=== PATIENT | female | born 1940 | race Caucasian/White ===

== ENCOUNTER 2023-01-13 11:27 | Inpatient (IN) | payer OTHER ==
--- OUTSIDE RECORDS SUMMARY | 2023-01-13 11:35 | XMS REPORT | Continuity of Care Document ---
:1940 Author Organization [facility] t Address [address] [place] [address] Care Team Providers Name Role Phone Gabby Mazariegos Primary Care Physician Jenny Attending Clinician Unavailable Doctor Unassigned, Sarcoxie Attending Clinician Unavailable AUGUSTINE LANGLEY Attending Clinician Unavailable Augustine Langley MD Attending Clinician ÁLVARO ENCISO Attending Clinician Unavailable Álvaro Scruggs Attending Clinician Mary Jara MD Attending Clinician MARY JARA Attending Clinician Unavailable Aldo Beckett DO Attending Clinician Gabby Mazariegos Attending Clinician Mars Dent Attending Clinician Jenny Admitting Clinician Unavailable AUGUSTINE LANGLEY Admitting Clinician Unavailable Augustine Langley MD Admitting Clinician Mars Dent Admitting Clinician Payers Payer Name Policy Type Policy Number Effective Date Expiration Date German jhonny [place]ICARE [place]: [id number] 2004 [employer] 00:00:00 BUNNY CROCKETT [id number] [facility] MEDICARE A-[place]: [id number] 2004 [employer] - 00:00:00 [facility] Problems Condition Condition Condition Status Onset Resolution Last Treating Co mments Source Name Details Category Date Date Treatment Clinician Date Chronic Chronic Problem Active [place] diarrhea Di[facility] 4-25 [facility] Hypertensi Hypertensi Problem Active 0 [place] ve ve 5-27 da disorder Disorder 00:00: [facility] 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 Added automatic ally from request for surgery [id number] Left Left Disease Active 2016-06 Overview: Univer s ureteral ureteral 0-11 Formattin ity of stone stone 00:00: g of this [place] 00 note Medical might be Branch different from the original. Added automatic ally from request for surgery [id number] Hydronephr Hydronephr Disease Active U nivers osis osis 9-15 ity of 00:00: [place] 00 Medical Branch Bladder Bladder Disease Active Univers wall wall 9-08 ity of thickening thickening 00:[place] [facility] Renal Renal Disease Active Univers lesion lesion 9-08 ity of 00:00: [place] 00 Medical Branch Renal Renal Disease Active Univers stones stones 9-08 ity of 00:00: [place] 00 Medical Branch Pericardia Pericardia Disease Active U nivers l effusion l effusion 9-08 it y of 00:00: [place] 00 Medical Branch Uncontroll Uncontroll Disease Active U nivers ed ed 9-08 ity of hypertensi hypertensi 00:[place] [facility] [place] Liver Liver Disease Active Univers lesion, lesion, 9-08 ity of right lobe right lobe 00:00: [place] [facility] Atrial Atrial Problem Active 2017-05-01 Pradeep bentley fibrillati fibrillati 09-30 05:00:45 l on on 00:00: Romero (disorder) (disorder) 00 Active 09/30/2016 Problem 05/01/2017 pt sees a cardiologi vijay valdez 02-12-17, ECHO done at that time, cardio prescribed Xarelto daily [facility] Cerebrovas Cerebrova Problem Active 2015-062017-05-01 Memoria cular scular 07-27 05:00:45 l accident accident 00:00: Arturo n (disorder) (disorder) 00 Active 05/26/2016 Problem 05/01/2017 pt had weakness on right side of body, slurred speech, pt has no deficits at this time. [facility] Irritable Irritable Problem Active 2017-05-01 Memoria colon colon 06-02 05:00:45 l (disorder) (disorder) 00:00: He rmann Active 00 06/02/2009 Problem 05/01/2017 [facility] Hyperchole Problem Active 2017-05-01 M emoria sterolemia Hyperchole 05:00:45 l (disorder) sterolemia He rmann (disorder) Active Problem 05/01/2017 [facility] Knee pain Knee pain Problem Active 2017-05-01 Memoria (finding) (finding) 05:00:45 l Active [place] Problem 05/01/2017 right [facility] Sleep, Sleep, Problem Active 2017-05-01 Pradeep bentley function function 05:00:45 l (observabl (observabl He rmann e entity) e entity) Active Problem 05/01/2017 [facility] Kidney Kidney Problem Resolve 2017-05-01 2017-05-01 Memoria stone stone d 01-31 05:00:45 05:00:45 l (disorder) (disorder) 00:00: He rmann Resolved 00 01/31/2017 Problem 05/01/2017 2 stents placed and removed [facility] History of Past Illness Condition Condition Condition Status Onset Resolution Last Treating Co mments Source Name Details Category Date Date Treatment Clinician Date Unilateral Unilatera Problem 2016-062017-05-01 2017-05-01 Memoria primary l primary 06-23 05:00:45 05:00:45 l osteoarthr osteoarthr 06:00: He cassius itis, itis, 00 right knee right knee 04/23/2017 05/01/2017 [facility] Allergies, Adverse Reactions, Alerts Allergy Allergy Status Severity Reaction(s) Onset Inactive Treating Comm ents Source Name Type Date Date Clinician Adhesive Propensi Active Rash Univer s Tape-Lavonne ty to 4-09 ity of icones adverse 00:00: [place] reaction 00 Medical s Branch ADHESIVE DRUG Active Rash Univers TAPE-LAVONNE 09 ity of ICONES 00:00: [place] 00 Medical Branch Lisinopr Drug Active Anaphylaxis 2016-06 Uni vers il Allergy 0-16 ity of 00:00: [place] 00 Medical Branch Rifaximi Drug Active Swelling 2016-06 Univer s n Allergy 0-16 ity of 00:00: [place] 00 Medical Branch LISINOPR DRUG Active High Anaphylaxis 2016-06 Uni vers IL INGREDI 0-16 ity of 00:00: [place] 00 Medical Branch RIFAXIMI DRUG Active High Swelling 2016-06 Univer s N INGREDI 0-16 ity of 00:00: [place] 00 Medical Branch Morphine Drug Active Other - See Strange Un sarah Intolera comments 917 behavior ity of nce 00:00: [place] 00 Medical Branch MORPHINE DRUG Active Other-Cmnt Univ ers INGREDI 9-17 ity of 00:00: [place] 00 Medical Branch Penicill Propensi Active Rash Univer s in ty to 3-09 ity of adverse 00:00: [place] reaction 00 Medical s Branch PENICILL DRUG Active Rash Univers IN INGREDI 3-09 ity of 00:00: [place] 00 Medical Branch Penicill Propensi Active Rash Univer s in ty to 3-09 ity of adverse 00:00: [place] reaction 00 Medical s Branch ADHESIVE Allergy Active [place] TAPE to da substanc [facility] PENICILL Allergy Active [place] INS to da substanc [facility] Xifaxan Allergy Active [place] to da substanc [facility] lisinopr lisinopr Active Anaphylaxis M emoria il il (disorder) l Romero morphine morphine Active Hallucinatio Memoria ns (finding) l Romero penicill penicill Active Memori a in in l Romero Tape<sup Tape<sup Active Cutaneous Mem oria >1</sup> >1</sup> eruption l (morphologic Herm anshul abnormality) Xifaxan Xifaxan Active Swelling Memori a (morphologic l abnormality) Herm anshul Social History Social Habit Start Date Stop Date Quantity Comments Source History SDOH University o f Alcohol Frequency [facility] edical Branch History SDOH University o f Alcohol Std [place] Medical Drinks Branch History SDOH University o f Alcohol Binge [place] Medic al Branch Alcohol intake 2021-08-30 2021-08-30 Current drinker Unive rsity of 00:00:00 00:00:00 of alcohol [place] Medical (finding) Branch Exposure to 2021-07-28 2021-08-27 Not sure University of SARS-CoV-2 00:00:00 13:55:00 [facility] (event) Branch Alcohol Comment 2017-03-14 2017-03-14 Rare occasions Unive rsity of 00:00:00 00:00:00 [facility] Tobacco use and 2016-08-08 2016-08-08 Never used Universit y of exposure 00:00:00 00:00:00 [facility] Sex Assigned At [birth year] Universit y of 00:00:00 00:00:00 [facility] Smoking Status Start Date Stop Date Source Social History [facility] Medications Ordered Filled Start Stop Current Ordering Indication Dosage Frequency Signature Comments Components Source Medication Medication Date Date Medication? Clinician (SIG) Name Name neomycin-po Yes PRN, Nitish [place]wood lymyxin-dex -30 Starting ity of amethasone 17:30: on Fri [place] (MAXITROL) 00 08/29/21 at Med ical 3.5 1230, Branch mg/g-10,000 Until unit/g-0.1 Discontinu % ed, ophthalmic Routine, ointment Intra-op neomycin-po 2021- No PRN, Unive rs lymyxin-dex 30 08-29 Starting ity of amethasone 17:30: 20:08 on Fri [facility] (MAXITROL) 00 :05 08/29/21 at Med ical 3.5 1230, Branch mg/g-10,000 Until Fri unit/g-0.1 08/29/21 at % 1508, ophthalmic Routine, ointment Intra-op dexamethaso Yes PRN, Univer s ne 30 Starting ity of (DECADRON 17:29: on Wed [place] PHOSPHATE) 00 08/29/21 at [facility] ical injection 1229, Branch Until Discontinu ed, Routine, Intra-op ceFAZolin Yes PRN, Univers (ANCEF) 08-29 Starting ity of injection 17:29: on Wed [place] 00 08/29/21 at [facility] 1229, Branch Until Discontinu ed, AMBREEN, Intra-op carbachoL Yes PRN, Univers (MIOSTAT) 08-29 Starting ity of 0.01 % 17:29: on Wed [place] intraocular 00 08/29/21 at Wi dical injection 1229, Branch Until Discontinu ed, Routine, Intra-op DUOVISC Yes PRN, Univers (DUOVISC 08-29 Starting ity of VISCO 17:29: on Fri ELASTIC) 3 08/29/21 at [facility] ica %-4 %(0.5 1229, Branch mL) 1 % Until (0.55 mL) Discontinu intraocular ed, injection Routine, Intra-op dexamethaso 2021- No PRN, Unive rs ne 08-29 Starting ity of (DECADRON 17:29: 20:08 on Fri [place] PHOSPHATE) 00 :05 08/29/21 at [facility] ical injection 1229, Branch Until Fri08/29/21 at 1508, Routine, Intra-op ceFAZolin 2021- No PRN, Univers (ANCEF) 08-29 Starting ity of injection 17:29: 20:08 on Fri [place] 00 :05 08/29/21 at [facility] 1229, Branch Until Fri08/29/21 at 1508, AMBREEN, Intra-op carbachoL 2021-2021- No PRN, Univers (MIOSTAT) 08-29 Starting ity o f 0.01 % 17:29: 20:08 on Fri [place] intraocular 00 :05 08/29/21 at Wi dical injection 1229, Branch Until Fri08/29/21 at 1508, Routine, Intra-op DUOVISC 2021- No PRN, Univers (DUOVISC 08-29 Starting ity of VISCO 17:29: 20:08 on Fri [place] ELASTIC) 3 00 :05 08/29/21 at [facility] ica %-4 %(0.5 1229, Branch mL) 1 % Until Wed (0.55 mL) 08/29/21 at intraocular 1508, injection Routine, Intra-op EPINEPHrine Yes PRN, Univer s 1:1,000 (1 3-30 Starting ity o f mg/mL) 17:25: on Fri (ADRENALIN) 00 08/29/21 at Wi dical injection 1225, Branch Until Discontinu ed, Routine, Intra-op balanced Yes PRN, Univers salt irrig 3-30 Starting ity o f soln comb1 17:25: on Fri (BSS PLUS) 00 08/29/21 at [facility] ical ophthalmic 1225, Branch solution Until 500 mL bag Discontinu ed, Routine, Intra-op EPINEPHrine 2021- No PRN, Unive rs 1:1,000 (1 08-29-30 Starting ity of mg/mL) 17:25: 20:08 on Fri (ADRENALIN) 00 :05 08/29/21 at Wi dical injection 1225, Branch Until Fri08/29/21 at 1508, Routine, Intra-op balanced 2021- No PRN, Univers salt irrig 3-30 03-30 Starting ity of soln comb1 17:25: 20:08 on Fri [place] (BSS PLUS) 00 :05 08/29/21 at [facility] ical ophthalmic 1225, Branch solution Until Wed 500 mL bag 08/29/21 at 1508, Routine, Intra-op water for Yes PRN, Univers irrigation 3-30 Starting ity o f irrigation 17:21: on Fri [place] solution 00 08/29/21 at Medic al 1221, Branch Until Discontinu ed, Routine, Intra-op water for 2021- No PRN, Univers irrigation 3-30 03-30 Starting ity of irrigation 17:21: 20:08 on Fri [place] solution 00 :05 08/29/21 at Medic al 1221, Branch Until Fri08/29/21 at 1508, Routine, Intra-op Hyaluronida Yes PRN, Univer s se, Human 3-30 Starting ity of Recomb. 17:17: on Fri (HYLENEX) 00 08/29/21 at [facility] injection 1217, Branch Until Discontinu ed, Routine, Intra-op eye block Yes PRN, Univers syringe 11 30 Starting ity o f mL 17:17: on Fri08/29/21 at [facility] 1217, Branch Until Discontinu ed, Intra-op Hyaluronida 2021- No PRN, Unive rs se, Human 08-29 Starting ity o f Recomb. 17:17: 20:08 on Fri (HYLENEX) 00 :05 08/29/21 at [facility] injection 1217, Branch Until Fri08/29/21 at 1508, Routine, Intra-op eye block 2021- No PRN, Univers syringe 11 08-29 Starting ity of mL 17:17: 20:08 on Fri 00 :05 08/29/21 at [facility] 1217, Branch Until Fri08/29/21 at 1508, Intra-op sodium 0 Yes PRN, Univers chloride 30 Starting ity of (NS) 17:09: on Fri injection 08/29/21 at [facility] 1209, Branch Until Discontinu ed, Routine, Intra-op sodium 2021- No PRN, Univers chloride 08-2930 Starting ity of (NS) 17:09: 20:08 on Fri [place] injection 00 :05 08/29/21 at [facility] 1209, Branch Until Fri08/29/21 at 1508, Routine, Intra-op lactated 2021- No 1000mL at 42 Unive rs ringers IV 3-30 03-30 mL/hr, ity of infusion 15:45: 15:34 1,000 mL, Cheng as 1,000 mL 00 :00 IV Medical Infusion, Branch ONCE, 1 dose, On Fri08/29/21 at 1045, Routine, DSU Pre-op lactated 2021- No 1000mL at 42 Unive rs ringers IV 3-30 03-30 mL/hr, ity of infusion 15:45: 15:34 1,000 mL, Cheng as 1,000 mL 00 :00 IV Medical Infusion, Branch ONCE, 1 dose, On Fri08/29/21 at 1045, Routine, DSU Pre-op cyclopent 2021- No .5mL 0.5 mL, Univ ers 1%-tropic 08-2930 Left Eye, ity of 1%-phenyl 15:15: 15:35 ONCE, 1 [place] 2.5%-ketor 00 :00 dose, On Medic al 0.5% Wed Branch (MYDRIATIC 08/29/21 at #5) 1015, ophthalmic Routine, solution DSU Pre-op syringe 0.5 mL cyclopent 2021- No .5mL 0.5 mL, Univ ers 1%-tropic 08-29 Left Eye, ity of 1%-phenyl 15:15: 15:35 ONCE, 1 [place] 2.5%-ketor 00 :00 dose, On Medic al 0.5% Wed Branch (MYDRIATIC 08/29/21 at #5) 1015, ophthalmic Routine, solution DSU Pre-op syringe 0.5 mL Cran[place] Yes [id number] 4200mg Take 4,200 Univers 400 mg Cap 3-30 mg by ity of 13:08: mouth. [place] [address] Medical Branch melatonin Yes 10mg Take 10 mg Un sarah 10 mg Cap 3-30 by mouth ity of 13:08: at [place] [address] bedtime. Medical Branch Cetirizine Yes Take by [facility] ers (ZYRTEC) 10 3-30 mouth. ity of mg capsule 13:08: [place] [address] Medical Branch Magnesium Yes 1{tbl} Take 1 Univ ers 250 mg Tab 3-30 tablet by ity of 13:08: mouth 2 [place] 04 (two) Medical times Branch daily. irbesartan Yes 300mg Take 300 Un sarah 300 mg 3-30 mg by ity of tablet 13:08: mouth at [place] [address] bedtime. Medical Branch diltiazem Yes 180mg Take 180 Uni vers XR 180 mg 3-30 mg by ity of 24 hr 13:08: mouth [facility] 04 daily. Medical Branch lactobacill Yes 1{tbl} Take 1 Un sarah us 3-30 tablet by ity of combination 13:08: mouth 2 [place] as no.4 (two) Medical (PROBIOTIC) times Branch 3 billion daily. cell Cap cyanocobala Yes Place Unive rs min, 3-30 under the ity of vitamin 13:08: tongue. Medical (VITAMIN Branch B-12 SL) COQ10, Yes Take by Univers UBIQUINOL, 3-30 mouth. ity of ORAL 13:08: Medical Branch Cranberry Yes [id number] 4200mg Take 4,200 Univers 400 mg Cap 3-30 mg by ity of 13:08: mouth. Medical Branch melatonin Yes 10mg Take 10 mg Un sarah 10 mg Cap 3-30 by mouth ity of 13:08: at [place] [address] bedtime. Medical Branch Cetirizine Yes Take by Univ ers (ZYRTEC) 10 3-30 mouth. ity of mg capsule 13:08: Medical Branch Magnesium Yes 1{tbl} Take 1 Univ ers 250 mg Tab 3-30 tablet by ity of 13:08: mouth 2 (two) Medical times Branch daily. irbesartan Yes 300mg Take 300 Un sarah 300 mg 3-30 mg by ity of tablet 13:08: mouth at [place] [address] bedtime. Medical Branch diltiazem Yes 180mg Take 180 Uni vers XR 180 mg 3-30 mg by ity of 24 hr 13:08: mouth [place] capsule daily. Medical Branch lactobacill Yes 1{tbl} Take 1 Un sarah us 3-30 tablet by ity of combination 13:08: mouth 2 [place] as no.4 (two) Medical (PROBIOTIC) times Branch 3 billion daily. cell Cap cyanocobala Yes Place Unive rs min, 3-30 under the ity of vitamin 13:08: tongue. Medical (VITAMIN Branch B-12 SL) COQ10, Yes Take by Univers UBIQUINOL, 3-30 mouth. ity of ORAL 13:08: Medical Branch Cranberry Yes [id number] 4200mg Take 4,200 Univers 400 mg Cap 3-30 mg by ity of 13:08: mouth. Medical Branch melatonin Yes 10mg Take 10 mg Un sarah 10 mg Cap 3-30 by mouth ity of 13:08: at [place] [address] bedtime. Medical Branch Cetirizine Yes Take by Univ ers (ZYRTEC) 10 3-30 mouth. ity of mg capsule 13:08: [place] Medical Branch Magnesium Yes 1{tbl} Take 1 Univ ers 250 mg Tab 3-30 tablet by ity of 13:08: mouth 2 (two) Medical times Branch daily. irbesartan Yes 300mg Take 300 Un sarah 300 mg 3-30 mg by ity of tablet 13:08: mouth at [place] [address] bedtime. Medical Branch diltiazem Yes 180mg Take 180 Uni vers XR 180 mg 3-30 mg by ity of 24 hr 13:08: mouth [place] capsule daily. Medical Branch lactobacill Yes 1{tbl} Take 1 Un sarah us 3-30 tablet by ity of combination 13:08: mouth 2 [place] as no.4 (two) Medical (PROBIOTIC) times Branch 3 billion daily. cell Cap cyanocobala Yes Place Unive rs min, 3-30 under the ity of vitamin 13:08: tongue. [place] B-12 Medical (VITAMIN Branch B-12 SL) COQ10, Yes Take by [facility] UBIQUINOL, 3-30 mouth. ity of ORAL 13:08: [place] Medical Branch neomycin-po Yes PRN, Univer s lymyxin-dex 3-16 Starting ity of amethasone 15:23: on Fri (MAXITROL) 00 08/15/21 at Med ical 3.5 1023, Branch mg/g-10,000 Until unit/g-0.1 Discontinu % ed, ophthalmic Routine, ointment Intra-op neomycin-po 0 2021- No PRN, Unive rs lymyxin-dex 3-16 -16 Starting ity of amethasone 15:23: 18:02 on Fri [facility] s (MAXITROL) 00 :18 08/15/21 at Med ical 3.5 1023, Branch mg/g-10,000 Until Wed unit/g-0.1 08/15/21 at % 1302, ophthalmic Routine, ointment Intra-op dexamethaso Yes PRN, Univer s ne 08-15 Starting ity of (DECADRON 15:20: on Wed [place] PHOSPHATE) 00 08/15/21 at Med ical injection 1020, Branch Until Discontinu ed, Routine, Intra-op carbachoL Yes PRN, Univers (MIOSTAT) 08-15 Starting ity of 0.01 % 15:20: on Wed [place] intraocular 00 08/15/21 at Wi dical injection 1020, Branch Until Discontinu ed, Routine, Intra-op dexamethaso 2021- No PRN, Unive rs ne 08-15 Starting ity of (DECADRON 15:20: 18:02 on Fri [place] PHOSPHATE) 00 :18 08/15/21 at Med ical injection 1020, Branch Until Fri08/15/21 at 1302, Routine, Intra-op carbachoL 2021- No PRN, Univers (MIOSTAT) 08-15 Starting ity o f 0.01 % 15:20: 18:02 on Wed [place] intraocular 00 :18 08/15/21 at Wi dical injection 1020, Branch Until 08/15/21 at 1302, Routine, Intra-op DUOVISC Yes PRN, Univers (DUOVISC 08-15 Starting ity of VISCO 15:15: on Wed [place] ELASTIC) 3 00 08/15/21 at Med ical %-4 %(0.5 1015, Branch mL) 1 % Until (0.55 mL) Discontinu intraocular ed, injection Routine, Intra-op DUOVISC 2021- No PRN, Univers (DUOVISC 08-15 Starting ity of VISCO 15:15: 18:02 on Wed [place] ELASTIC) 3 00 :18 08/15/21 at Med ical %-4 %(0.5 1015, Branch mL) 1 % Until Wed (0.55 mL) 08/15/21 at intraocular 1302, injection Routine, Intra-op ceFAZolin Yes PRN, Univers (ANCEF) 08-15 Starting ity of injection 15:14: on Wed [place] 00 08/15/21 at Medical 1014, Branch Until Discontinu ed, AMBREEN, Intra-op ceFAZolin 2021- No PRN, Univers (ANCEF) 3-16 -16 Starting ity of injection 15:14: 18:02 on Fri [place] 00 :18 08/15/21 at [facility] 1014, Branch Until Fri08/15/21 at 1302, AMBREEN, Intra-op water for Yes PRN, Univers irrigation 3-16 Starting ity o f irrigation 15:05: on Fri [place] solution 00 08/15/21 at [facility] al 1005, Branch Until Discontinu ed, Routine, Intra-op water for 2021- No PRN, Univers irrigation 08-15-16 Starting ity of irrigation 15:05: 18:02 on Fri [place] solution 00 :18 08/15/21 at [facility] al 1005, Branch Until Fri08/15/21 at 1302, Routine, Intra-op eye block Yes PRN, Univers syringe 11 -16 Starting ity o f mL 15:02: on Fri 00 08/15/21 at [facility] 1002, Branch Until Discontinu ed, Intra-op Hyaluronida Yes PRN, Univer s se, Human -16 Starting ity of Recomb. 15:02: on Fri (HYLENEX) 00 08/15/21 at [facility] injection 1002, Branch Until Discontinu ed, Routine, Intra-op eye block 2021- No PRN, Univers syringe 11 08-15-16 Starting ity of mL 15:02: 18:02 on Fri 00 :18 08/15/21 at [facility] 1002, Branch Until Fri08/15/21 at 1302, Intra-op Hyaluronida 2021- No PRN, Unive rs se, Human 08-15-16 Starting ity o f Recomb. 15:02: 18:02 on Fri (HYLENEX) 00 :18 08/15/21 at [facility] injection 1002, Branch Until Fri08/15/21 at 1302, Routine, Intra-op sodium Yes PRN, Univers chloride 3-16 Starting ity of (NS) 15:01: on Fri [place] injection 00 08/15/21 at [facility] 1001, Branch Until Discontinu ed, Routine, Intra-op sodium 2021- No PRN, Univers chloride 08-15 Starting ity of (NS) 15:01: 18:02 on Fri [place] injection 00 :18 08/15/21 at [facility] bl[facility] 1001, Branch Until Fri08/15/21 at 1302, Routine, Intra-op EPINEPHrine Yes PRN, Univer s 1:1,000 (1 08-15 Starting ity o f mg/mL) 15:00: on Fri (ADRENALIN) 00 08/15/21 at Wi dical injection 1000, Branch Until Discontinu ed, Routine, Intra-op balanced Yes PRN, Univers salt irrig 08-15 Starting ity o f soln comb1 15:00: on Fri (BSS PLUS) 00 08/15/21 at [facility] ica ophthalmic 1000, Branch solution Until 500 mL bag Discontinu ed, Routine, Intra-op EPINEPHrine 2021- No PRN, Unive rs 1:1,000 (1 08-15 Starting ity of mg/mL) 15:00: 18:02 on Fri (ADRENALIN) 00 :18 08/15/21 at Wi dical injection 1000, Branch Until Fri08/15/21 at 1302, Routine, Intra-op balanced 2021- No PRN, Univers salt irrig 08-15 Starting ity of soln comb1 15:00: 18:02 on Fri [place] (BSS PLUS) 00 :18 08/15/21 at [facility] ica ophthalmic 1000, Branch solution Until Fri 500 mL bag 08/15/21 at 1302, Routine, Intra-op cyclopent 2021- No .5mL 0.5 mL, Univ ers 1%-tropic 08-15 Right Eye, ity of 1%-phenyl 13:00: 13:09 ONCE, 1 [place] 2.5%-ketor 00 :00 dose, On Medic al 0.5% Fri Branch (MYDRIATIC 08/15/21 at #5) 0800, ophthalmic Routine, solution DSU Pre-op syringe 0.5 mL lactated 2021- No 1000mL at 42 Unive rs ringers IV 08-15 mL/hr, ity of infusion 13:00: 13:08 1,000 mL, Cheng as 1,000 mL 00 :00 IV Medical Infusion, Branch ONCE, 1 dose, On Fri08/15/21 at 0800, Routine, DSU Pre-op cyclopent 2021- No .5mL 0.5 mL, Univ ers 1%-tropic 08-1516 Right Eye, ity of 1%-phenyl 13:00: 13:09 ONCE, 1 [place] 2.5%-ketor 00 :00 dose, On Medic al 0.5% Fri Branch (MYDRIATIC 08/15/21 at #5) 0800, ophthalmic Routine, solution DSU Pre-op syringe 0.5 mL lactated 2021- No 1000mL at 42 Unive rs ringers IV 08-1516 mL/hr, ity of infusion 13:00: 13:08 1,000 mL, Cheng as 1,000 mL 00 :00 IV Medical Infusion, Branch ONCE, 1 dose, On Fri08/15/21 at 0800, Routine, DSU Pre-op Cranberry Yes [id number] 4200mg Take 4,200 Univers 400 mg Cap 3-16 mg by ity of 11:02: mouth. [place] [address] Medical Branch melatonin Yes 10mg Take 10 mg Un sarah 10 mg Cap 3-16 by mouth ity of 11:02: at [place] [address] bedtime. Medical Branch Cetirizine Yes Take by [facility] ers (ZYRTEC) 10 3-16 mouth. ity of mg capsule 11:02: [place] 14 Medical Branch Magnesium Yes 1{tbl} Take 1 Univ ers 250 mg Tab 3-16 tablet by ity of 11:02: mouth 2 [place] 14 (two) Medical times Branch daily. irbesartan Yes 300mg Take 300 Un sarah 300 mg 3-16 mg by ity of tablet 11:02: mouth at [place] 14 bedtime. Medical Branch diltiazem Yes 180mg Take 180 Uni vers XR 180 mg 3-16 mg by ity of 24 hr 11:02: mouth [place] capsule 14 daily. Medical Branch lactobacill Yes 1{tbl} Take 1 Un sarah us 3-16 tablet by ity of combination 11:02: mouth 2 [place] as no.4 14 (two) Medical (PROBIOTIC) times Branch 3 billion daily. cell Cap cyanocobala Yes Place Unive rs min, 3-16 under the ity of vitamin 11:02: tongue. [place] Medical (VITAMIN Branch B-12 ) COQ10, Yes Take by Univers UBIQUINOL, 3-16 mouth. ity of ORAL 11:02: Medical Branch Cranberry Yes [id number] 4200mg Take 4,200 Univers 400 mg Cap 3-16 mg by ity of 11:02: mouth. Medical Branch melatonin Yes 10mg Take 10 mg Un sarah 10 mg Cap 3-16 by mouth ity of 11:02: at [place] [address] bedtime. Medical Branch Cetirizine Yes Take by Univ ers (ZYRTEC) 10 3-16 mouth. ity of mg capsule 11:02: Medical Branch Magnesium Yes 1{tbl} Take 1 Univ ers 250 mg Tab 3-16 tablet by ity of 11:02: mouth 2 [place] 14 (two) Medical times Branch daily. irbesartan Yes 300mg Take 300 [facility] 300 mg 3-16 mg by ity of tablet 11:02: mouth at [place] [address] bedtime. Medical Branch diltiazem Yes 180mg Take 180 [facility] vers XR 180 mg 3-16 mg by ity of 24 hr 11:02: mouth [place] capsule 14 daily. Medical Branch lactobacill Yes 1{tbl} Take 1 [facility] us 3-16 tablet by ity of combination 11:02: mouth 2 [place] no.4 14 (two) Medical (PROBIOTIC) times Branch 3 billion daily. cell Cap cyanocobala Yes Place Un[facility] rs min, 3-16 under the ity of vitamin 11:02: tongue. Medical (VITAMIN Branch B-12 ) COQ10, Yes Take by [facility] UBIQUINOL, 3-16 mouth. ity of ORAL 11:02: Medical Branch Cranberry Yes [id number] Take 4,200 [facility] 400 mg Cap 3-16 mg by ity of 11:02: mouth. 14 [facility] Branch melatonin Yes 10mg Take 10 mg [facility] 10 mg Cap 3-16 by mouth ity of 11:02: at [place] 14 bedtime. Medical Branch Cetirizine Yes Take by [facility] (ZYRTEC) 10 3-16 mouth. ity of mg capsule 11:02: 14 [facility] Branch Magnesium Yes 1{tbl} Take 1 [facility] 250 mg Tab 3-16 tablet by ity of 11:02: mouth 2 [place] 14 (two) Medical times Branch daily. irbesartan Yes 300mg Take 300 [facility] 300 mg 3-16 mg by ity of tablet 11:02: mouth at [place] 14 bedtime. [facility] Branch diltiazem Yes 180mg Take 180 [facility] vers XR 180 mg 3-16 mg by ity of 24 hr 11:02: mouth [place] capsule 14 daily. Medical Branch lactobacill Yes 1{tbl} Take 1 [facility] us 3-16 tablet by ity of combination 11:02: mouth 2 [place] no.4 (two) Medical (PROBIOTIC) times Branch 3 billion daily. cell Cap cyanocobala Yes Place [facility] rs min, 3-16 under the ity of vitamin 11:02: tongue. [facility] 14 Medical (VITAMIN Branch B-12 SL) COQ10, Yes Take by [facility] UBIQUINOL, 3-16 mouth. ity of ORAL 11:02: 14 Medical Branch melatonin 2019-06 Yes 10mg Take 10 mg [facility] 10 mg Cap 0-08 by mouth ity of 15:28: at [place] 10 bedtime. Medical Branch cyanocobala 2019-[address] [facility] rs min, 0-08 under the ity of vitamin 15:28: tongue. B12, Medical (VITAMIN Branch B-12 SL) COQ10, 2019-06 Yes Take by [facility] UBIQUINOL, 0-08 mouth. ity of ORAL 15:28: 10 Medical Branch melatonin 2019-06 Yes 10mg Take 10 mg [facility] 10 mg Cap 0-08 by mouth ity of 15:28: at [place] 10 bedtime. Medical Branch cyanocobala 2019-[address] [facility] rs min, 0-08 under the ity of vitamin 15:28: tongue. [place] B-12, 10 Medical (VITAMIN Branch B-12 ) COQ10, 2019-06 Yes Take by [facility] UBIQUINOL, 0-08 mouth. ity of ORAL 15:28: Medical Branch melatonin 2019-06 Yes 10mg Take 10 mg [facility] 10 mg Cap 0-08 by mouth ity of 15:28: at [place] 10 bedtime. Medical Branch cyanocobala 2019-[address] [facility] rs min, 0-08 under the ity of vitamin 15:28: tongue. [place] B-12, 10 Medical (VITAMIN Branch B-12 ) COQ10, 2019-06 Yes Take by [facility] UBIQUINOL, 0-08 mouth. ity of ORAL 15:28: [place] [address] Medical Branch melatonin 2019-06 Yes 10mg Take 10 mg [facility] 10 mg Cap 0-08 by mouth ity of 15:28: at [place] 10 bedtime. Medical Branch cyanocobala 2019-[address] [facility] rs min, 0-08 under the ity of vitamin 15:28: tongue. [place] B12, 10 Medical (VITAMIN Branch B-12 ) COQ10, 2019-06 Yes Take by [facility] UBIQUINOL, 0-08 mouth. ity of ORAL 15:28: [place] [address] Medical Branch melatonin 2019-06 Yes 10mg Take 10 mg [facility] 10 mg Cap 0-08 by mouth ity of 15:28: at [place] [address] bedtime. Medical Branch cyanocobala 2019-[address] Un[facility] rs min, 0-08 under the ity of vitamin 15:28: tongue. [place] B12, 10 Medical (VITAMIN Branch B-12 ) COQ10, 2019-06 Yes Take by [facility] UBIQUINOL, 0-08 mouth. ity of ORAL 15:28: Medical Branch melatonin 2019-06 Yes 10mg Take 10 mg [facility] 10 mg Cap 0-08 by mouth ity of 15:28: at [place] [address] bedtime. Medical Branch cyanocobala 2019-[address] Un[facility] rs min, 0-08 under the ity of vitamin 15:28: tongue. [place] B-12, 10 Medical (VITAMIN Branch B-12 ) COQ10, 2019-06 Yes Take by [facility] UBIQUINOL, 0-08 mouth. ity of ORAL 15:28: [place] [address] Medical Branch melatonin 2019-06 Yes 10mg Take 10 mg [facility] 10 mg Cap 0-08 by mouth ity of 15:28: at [place] 10 bedtime. Medical Branch cyanocobala 2019-[address] [facility] rs min, 0-08 under the ity of vitamin 15:28: tongue. B-12, 10 Medical (VITAMIN Branch B-12 SL) COQ10, 2019-06 Yes Take by [facility] UBIQUINOL, 0-08 mouth. ity of ORAL 15:28: Medical Branch melatonin 2019-06 Yes 10mg Take 10 mg [facility] 10 mg Cap 0-08 by mouth ity of 15:28: at [place] 10 bedtime. Medical Branch cyanocobala 2019-[address] Un[facility] rs min, 0-08 under the ity of vitamin 15:28: tongue. B-12, 10 Medical (VITAMIN Branch B-12 SL) COQ10, 2019-06 Yes Take by [facility] UBIQUINOL, 0-08 mouth. ity of ORAL 15:28: Medical Branch melatonin 2019-06 Yes 10mg Take 10 mg [facility] 10 mg Cap 0-08 by mouth ity of 15:28: at [place] [address] bedtime. Medical Branch cyanocobala 2019-[address] Un[facility] rs min, 0-08 under the ity of vitamin 15:28: tongue. [place] B-12, 10 Medical (VITAMIN Branch B-12 SL) COQ10, 2019-06 Yes Take by [facility] UBIQUINOL, 0-08 mouth. ity of ORAL 15:28: Medical Branch melatonin 2019-06 Yes 10mg Take 10 mg [facility] 10 mg Cap 0-08 by mouth ity of 15:28: at [place] 10 bedtime. Medical Branch cyanocobala 2019-[address] Un[facility] rs min, 0-08 under the ity of vitamin 15:28: tongue. [place] B-12, 10 Medical (VITAMIN Branch B-12 SL) COQ10, 2019-06 Yes Take by [facility] UBIQUINOL, 0-08 mouth. ity of ORAL 15:28: Medical Branch melatonin 2019-06 Yes 10mg Take 10 mg [facility] 10 mg Cap 0-08 by mouth ity of 15:28: at [place] 10 bedtime. Medical Branch cyanocobala 2019-[address] Unive rs min, 0-08 under the ity of vitamin 15:28: tongue. [place] B-12, 10 Medical (VITAMIN Branch B-12 SL) COQ10, 2019-06 Yes Take by [facility] UBIQUINOL, 0-08 mouth. ity of ORAL 15:28: [place] [address] Medical Branch melatonin 2019-06 Yes 10mg Take 10 mg [facility] 10 mg Cap 0-08 by mouth ity of 15:28: at [place] [address] bedtime. Medical Branch cyanocobala 2019-[address] Un[facility] rs min, 0-08 under the ity of vitamin 15:28: tongue. [place] B12, 10 Medical (VITAMIN Branch B-12 ) COQ10, 2019-06 Yes Take by [facility] UBIQUINOL, 0-08 mouth. ity of ORAL 15:28: [place] [address] Medical Branch melatonin 2019-06 Yes 10mg Take 10 mg [facility] 10 mg Cap 0-08 by mouth ity of 15:28: at [place] [address] bedtime. Medical Branch cyanocobala 2019-[address] Unive rs min, 0-08 under the ity of vitamin 15:28: tongue. [place] B12, Medical (VITAMIN Branch B-12 ) COQ10, 2019-06 Yes Take by [facility] UBIQUINOL, 0-08 mouth. ity of ORAL 15:28: [address] Branch Cranberry 2019-06 Yes [id number] Take 4,200 [facility] 400 mg Cap 0-08 mg by ity of 15:25: mouth. [place] [address] Medical Branch Cetirizine 2019-06 Yes Take by [facility] ers (ZYRTEC) 10 0-08 mouth. ity of mg capsule 15:25: [place] [address] Medical Branch Magnesium 2019-06 Yes 1{tbl} Take 1 [facility] ers 250 mg Tab 0-08 tablet by ity of 15:25: mouth 2 [place] 10 (two) Medical times Branch daily. irbesartan 2019-06 Yes 300mg Take 300 [facility] 300 mg 0-08 mg by ity of tablet 15:25: mouth at [place] [address] bedtime. Medical Branch diltiazem 2019-06 Yes 180mg Take 180 [facility] vers XR 180 mg 0-08 mg by ity of 24 hr 15:25: mouth [place] capsule 10 daily. Medical Branch lactobacill 2019-06 Yes 1{tbl} Take 1 [facility] us 0-08 tablet by ity of combination 15:25: mouth 2 [place] no.4 (two) Medical (PROBIOTIC) times Branch 3 billion daily. cell Cap Cranberry 2019-06 Yes [id number] 4200mg Take 4,200 [facility] 400 mg Cap 0-08 mg by ity of 15:25: mouth. [place] [address] Medical Branch Cetirizine 2019-06 Yes Take by [facility] ers (ZYRTEC) 10 0-08 mouth. ity of mg capsule 15:25: [place] [address] Medical Branch Magnesium 2019-06 Yes 1{tbl} Take 1 [facility] ers 250 mg Tab 0-08 tablet by ity of 15:25: mouth 2 [place] [address] (two) Medical times Branch daily. irbesartan 2019-06 Yes 300mg Take 300 [facility] 300 mg 0-08 mg by ity of tablet 15:25: mouth at [place] 10 bedtime. Medical Branch diltiazem 2019-06 Yes 180mg Take 180 [facility] vers XR 180 mg 0-08 mg by ity of 24 hr 15:25: mouth [place] capsule 10 daily. Medical Branch lactobacill 2019-06 Yes 1{tbl} Take 1 [facility] us 0-08 tablet by ity of combination 15:25: mouth 2 [place] no.4 10 (two) Medical (PROBIOTIC) times Branch 3 billion daily. cell Cap Cran[place] 2019-06 Yes [id number] 4200mg Take 4,200 [facility] 400 mg Cap 0-08 mg by ity of 15:25: mouth. [place] [address] Medical Branch Cetirizine 2019-06 Yes Take by [facility] ers (ZYRTEC) 10 0-08 mouth. ity of mg capsule 15:25: [place] [address] Medical Branch Magnesium 2019-06 Yes 1{tbl} Take 1 [facility] ers 250 mg Tab 0-08 tablet by ity of 15:25: mouth 2 [place] [address] (two) Medical times Branch daily. irbesartan 2019-06 Yes 300mg Take 300 [facility] 300 mg 0-08 mg by ity of tablet 15:25: mouth at [place] 10 bedtime. Medical Branch diltiazem 2019-06 Yes 180mg Take 180 [facility] vers XR 180 mg 0-08 mg by ity of 24 hr 15:25: mouth [place] capsule 10 daily. Medical Branch lactobacill 2019-06 Yes 1{tbl} Take 1 [facility] us 0-08 tablet by ity of combination 15:25: mouth 2 [place] no.4 10 (two) Medical (PROBIOTIC) times Branch 3 billion daily. cell Cap Cran[place] 2019-06 Yes [id number] 4200mg Take 4,200 [facility] 400 mg Cap 0-08 mg by ity of 15:25: mouth. [place] [address] Medical Branch Cetirizine 2019-06 Yes Take by [facility] ers (ZYRTEC) 10 0-08 mouth. ity of mg capsule 15:25: [place] [address] Medical Branch Magnesium 2019-06 Yes 1{tbl} Take 1 [facility] ers 250 mg Tab 0-08 tablet by ity of 15:25: mouth 2 [place] [address] (two) Medical times Branch daily. irbesartan 2019-06 Yes 300mg Take 300 [facility] 300 mg 0-08 mg by ity of tablet 15:25: mouth at [place] 10 bedtime. Medical Branch diltiazem 2019-06 Yes 180mg Take 180 [facility] vers XR 180 mg 0-08 mg by ity of 24 hr 15:25: mouth [place] capsule 10 daily. Medical Branch lactobacill 2019-06 Yes 1{tbl} Take 1 [facility] us 0-08 tablet by ity of combination 15:25: mouth 2 [place] no.4 10 (two) Medical (PROBIOTIC) times Branch 3 billion daily. cell Cap Cran[place] 2019-06 Yes [id number] 4200mg Take 4,200 [facility] 400 mg Cap 0-08 mg by ity of 15:25: mouth. [place] [address] Medical Branch Cetirizine 2019-06 Yes Take by [facility] ers (ZYRTEC) 10 0-08 mouth. ity of mg capsule 15:25: [place] [address] Medical Branch Magnesium 2019-06 Yes 1{tbl} Take 1 [facility] ers 250 mg Tab 0-08 tablet by ity of 15:25: mouth 2 [place] [address] (two) Medical times Branch daily. irbesartan 2019-06 Yes 300mg Take 300 [facility] 300 mg 0-08 mg by ity of tablet 15:25: mouth at [place] 10 bedtime. Medical Branch diltiazem 2019-06 Yes 180mg Take 180 [facility] vers XR 180 mg 0-08 mg by ity of 24 hr 15:25: mouth [place] capsule 10 daily. Medical Branch lactobacill 2019-06 Yes 1{tbl} Take 1 [facility] us 0-08 tablet by ity of combination 15:25: mouth 2 [place] no.4 10 (two) Medical (PROBIOTIC) times Branch 3 billion daily. cell Cap Cran[place] 2019-06 Yes [id number] 4200mg Take 4,200 [facility] 400 mg Cap 0-08 mg by ity of 15:25: mouth. [place] [address] Medical Branch Cetirizine 2019-06 Yes Take by [facility] ers (ZYRTEC) 10 0-08 mouth. ity of mg capsule 15:25: [place] [address] Medical Branch Magnesium 2019-06 Yes 1{tbl} Take 1 [facility] ers 250 mg Tab 0-08 tablet by ity of 15:25: mouth 2 [place] [address] (two) Medical times Branch daily. irbesartan 2019-06 Yes 300mg Take 300 [facility] 300 mg 0-08 mg by ity of tablet 15:25: mouth at [place] 10 bedtime. Medical Branch diltiazem 2019-06 Yes 180mg Take 180 [facility] vers XR 180 mg 0-08 mg by ity of 24 hr 15:25: mouth [place] capsule 10 daily. Medical Branch lactobacill 2019-06 Yes 1{tbl} Take 1 [facility] us 0-08 tablet by ity of combination 15:25: mouth 2 [place] no.4 10 (two) Medical (PROBIOTIC) times Branch 3 billion daily. cell Cap [place] 2019-06 Yes [id number] 4200mg Take 4,200 [facility] 400 mg Cap 0-08 mg by ity of 15:25: mouth. [place] [address] Medical Branch Cetirizine 2019-06 Yes Take by [facility] ers (ZYRTEC) 10 0-08 mouth. ity of mg capsule 15:25: [place] [address] Medical Branch Magnesium 2019-06 Yes 1{tbl} Take 1 [facility] ers 250 mg Tab 0-08 tablet by ity of 15:25: mouth 2 [place] [address] (two) Medical times Branch daily. irbesartan 2019-06 Yes 300mg Take 300 [facility] 300 mg 0-08 mg by ity of tablet 15:25: mouth at [place] 10 bedtime. Medical Branch diltiazem 2019-06 Yes 180mg Take 180 [facility] vers XR 180 mg 0-08 mg by ity of 24 hr 15:25: mouth [place] capsule 10 daily. Medical Branch lactobacill 2019-06 Yes 1{tbl} Take 1 [facility] us 0-08 tablet by ity of combination 15:25: mouth 2 [place] no.4 10 (two) Medical (PROBIOTIC) times Branch 3 billion daily. cell Cap Cran[place] 2019-06 Yes [id number] 4200mg Take 4,200 [facility] 400 mg Cap 0-08 mg by ity of 15:25: mouth. [place] [address] Medical Branch Cetirizine 2019-06 Yes Take by [facility] ers (ZYRTEC) 10 0-08 mouth. ity of mg capsule 15:25: [place] [address] Medical Branch Magnesium 2019-06 Yes 1{tbl} Take 1 [facility] ers 250 mg Tab 0-08 tablet by ity of 15:25: mouth 2 [place] [address] (two) Medical times Branch daily. irbesartan 2019-06 Yes 300mg Take 300 [facility] 300 mg 0-08 mg by ity of tablet 15:25: mouth at [place] [address] bedtime. Medical Branch diltiazem 2019-06 Yes 180mg Take 180 [facility] vers XR 180 mg 0-08 mg by ity of 24 hr 15:25: mouth [place] capsule 10 daily. Medical Branch lactobacill 2019-06 Yes 1{tbl} Take 1 [facility] us 0-08 tablet by ity of combination 15:25: mouth 2 [place] no.4 10 (two) Medical (PROBIOTIC) times Branch 3 billion daily. cell Cap Cran[place] 2019-06 Yes [id number] 4200mg Take 4,200 [facility] 400 mg Cap 0-08 mg by ity of 15:25: mouth. [place] [address] Medical Branch Cetirizine 2019-06 Yes Take by [facility] ers (ZYRTEC) 10 0-08 mouth. ity of mg capsule 15:25: [place] [address] Medical Branch Magnesium 2019-06 Yes 1{tbl} Take 1 [facility] ers 250 mg Tab 0-08 tablet by ity of 15:25: mouth 2 [place] [address] (two) Medical times Branch daily. irbesartan 2019-06 Yes 300mg Take 300 [facility] 300 mg 0-08 mg by ity of tablet 15:25: mouth at [place] [address] bedtime. Medical Branch diltiazem 2019-06 Yes 180mg Take 180 [facility] vers XR 180 mg 0-08 mg by ity of 24 hr 15:25: mouth [place] capsule 10 daily. Medical Branch lactobacill 2019-06 Yes 1{tbl} Take 1 [facility] us 0-08 tablet by ity of combination 15:25: mouth 2 [place] no.4 10 (two) Medical (PROBIOTIC) times Branch 3 billion daily. cell Cap [place] 2019-06 Yes [id number] 4200mg Take 4,200 [facility] 400 mg Cap 0-08 mg by ity of 15:25: mouth. [place] [address] Medical Branch Cetirizine 2019-06 Yes Take by [facility] ers (ZYRTEC) 10 0-08 mouth. ity of mg capsule 15:25: [place] [address] Medical Branch Magnesium 2019-06 Yes 1{tbl} Take 1 [facility] ers 250 mg Tab 0-08 tablet by ity of 15:25: mouth 2 [place] 10 (two) Medical times Branch daily. irbesartan 2019-06 Yes 300mg Take 300 [facility] 300 mg 0-08 mg by ity of tablet 15:25: mouth at [place] 10 bedtime. Medical Branch diltiazem 2019- Yes 180mg Take 180 [facility] vers XR 180 mg 0-08 mg by ity of 24 hr 15:25: mouth [place] capsule 10 daily. Medical Branch lactobacill 2019-06 Yes 1{tbl} Take 1 [facility] us 0-08 tablet by ity of combination 15:25: mouth 2 [place] no.4 10 (two) Medical (PROBIOTIC) times Branch 3 billion daily. cell Cap [place] 2019-06 Yes [id number] 4200mg Take 4,200 [facility] 400 mg Cap 0-08 mg by ity of 15:25: mouth. [place] [address] Medical Branch Cetirizine 2019-06 Yes Take by [facility] ers (ZYRTEC) 10 0-08 mouth. ity of mg capsule 15:25: [place] [address] Medical Branch Magnesium 2019-06 Yes 1{tbl} Take 1 [facility] ers 250 mg Tab 0-08 tablet by ity of 15:25: mouth 2 [place] 10 (two) Medical times Branch daily. irbesartan 2019-06 Yes 300mg Take 300 [facility] 300 mg 0-08 mg by ity of tablet 15:25: mouth at [place] 10 bedtime. Medical Branch diltiazem 2019-06 Yes 180mg Take 180 Uni vers XR 180 mg 0-08 mg by ity of 24 hr 15:25: mouth [place] capsule 10 daily. Medical Branch lactobacill 2019-06 Yes 1{tbl} Take 1 [facility] us 0-08 tablet by ity of combination 15:25: mouth 2 [place] no.4 10 (two) Medical (PROBIOTIC) times Branch 3 billion daily. cell Cap Cran[place] 2019- Yes [id number] 4200mg Take 4,200 [facility] 400 mg Cap 0-08 mg by ity of 15:25: mouth. [place] [address] Medical Branch Cetirizine 2019-06 Yes Take by [facility] ers (ZYRTEC) 10 0-08 mouth. ity of mg capsule 15:25: [place] [address] Medical Branch Magnesium 2019-06 Yes 1{tbl} Take 1 [facility] ers 250 mg Tab 0-08 tablet by ity of 15:25: mouth 2 [place] 10 (two) Medical times Branch daily. irbesartan 2019-06 Yes 300mg Take 300 [facility] [place] 300 mg 0-08 mg by ity of tablet 15:25: mouth at [place] 10 bedtime. Medical Branch diltiazem 2019-06 Yes 180mg Take 180 [facility] vers XR 180 mg 0-08 mg by ity of 24 hr 15:25: mouth [place] capsule 10 daily. Medical Branch lactobacill 2019-06 Yes 1{tbl} Take 1 [facility] us 0-08 tablet by ity of combination 15:25: mouth 2 [place] no.4 10 (two) Medical (PROBIOTIC) times Branch 3 billion daily. cell Cap [place] 2019-06 Yes [id number] 4200mg Take 4,200 [facility] 400 mg Cap 0-08 mg by ity of 15:25: mouth. [place] [address] Medical Branch Cetirizine 2019-06 Yes Take by [facility] ers (ZYRTEC) 10 0-08 mouth. ity of mg capsule 15:25: [place] [address] Medical Branch Magnesium 2019-06 Yes 1{tbl} Take 1 [facility] ers 250 mg Tab 0-08 tablet by ity of 15:25: mouth 2 [place] 10 (two) Medical times Branch daily. irbesartan 2019-06 Yes 300mg Take 300 [facility] [place] 300 mg 0-08 mg by ity of tablet 15:25: mouth at [place] 10 bedtime. Medical Branch diltiazem 2019-06 Yes 180mg Take 180 [facility] vers XR 180 mg 0-08 mg by ity of 24 hr 15:25: mouth [place] capsule 10 daily. Medical Branch lactobacill 2019-06 Yes 1{tbl} Take 1 [facility] us 0-08 tablet by ity of combination 15:25: mouth 2 [place] no.4 10 (two) Medical (PROBIOTIC) times Branch 3 billion daily. cell Cap [place] Yes [id number] 400mg Take 400 [facility] 400 mg Cap 7-02 mg by ity of 23:15: mouth. [place] [address] Medical Branch melatonin Yes 10mg Take 10 mg [facility] 10 mg Cap 7-02 by mouth ity of 23:15: at [place] 05 bedtime. Medical Branch Cetirizine Yes Take by [facility] ([email or web address] 10 7-02 mouth. ity of mg capsule 23:15: Medical Branch Magnesium Yes 1{tbl} Take 1 [facility] ers 250 mg Tab 7-02 tablet by ity of 23:15: mouth 2 05 (two) Medical times Branch daily. irbesartan Yes 300mg Take 300 [facility] [place] 300 mg 7-02 mg by ity of tablet 23:15: mouth at [place] 05 bedtime. Medical Branch diltiazem Yes 180mg Take 180 [facility] vers XR 180 mg 7-02 mg by ity of 24 hr 23:15: mouth [place] capsule 05 daily. Medical Branch lactobacill Yes 1{tbl} Take 1 [facility] [place] us 7-02 tablet by ity of combination 23:15: mouth 2 [place] no.4 05 (two) Medical (PROBIOTIC) times Branch 3 billion daily. cell Cap [place] Yes [id number] 400mg Take 400 [facility] 400 mg Cap 7-02 mg by ity of 23:15: mouth. Medical Branch melatonin Yes 10mg Take 10 mg [facility] 10 mg Cap 7-02 by mouth ity of 23:15: at [place] 05 bedtime. Medical Branch Cetirizine Yes Take by [facility] ([facility] [[email or web address] 10 7-02 mouth. ity of mg capsule 23:15: Medical Branch Magnesium Yes 1{tbl} Take 1 [facility] ers 250 mg Tab 7-02 tablet by ity of 23:15: mouth 2 05 (two) Medical times Branch daily. irbesartan Yes 300mg Take 300 [facility] [place] 300 mg 7-02 mg by ity of tablet 23:15: mouth at [place] 05 bedtime. Medical Branch diltiazem Yes 180mg Take 180 [facility] vers XR 180 mg 7-02 mg by ity of 24 hr 23:15: mouth [place] capsule 05 daily. Medical Branch lactobacill Yes 1{tbl} Take 1 [facility] [place] us 7-02 tablet by ity of combination 23:15: mouth 2 [place] no.4 05 (two) Medical (PROBIOTIC) times Branch 3 billion daily. cell Cap ciprofloxac 2018- Yes [id number] 500mg Take 1 [facility] in HCl 5-30 tablet by ity of (CIPRO) 500 00:00: mouth [place] mg tablet 00 daily. Medical Branch ciprofloxac 2018-0 Yes [id number] 500mg Take 1 [facility] in HCl 5-30 tablet by ity of (CIPRO) 500 00:00: mouth [place] mg tablet 00 daily. Medical Branch ciprofloxac 2018- Yes [id number] 500mg Take 1 [facility] in HCl 5-30 tablet by ity of (CIPRO) 500 00:00: mouth [place] mg tablet 00 daily. Medical Branch ciprofloxac 2018- Yes [id number] 500mg Take 1 [facility] in HCl 5-30 tablet by ity of (CIPRO) 500 00:00: mouth [place] mg tablet 00 daily. Medical Branch ciprofloxac 2018- Yes [id number] 500mg Take 1 [facility] in HCl 5-30 tablet by ity of (CIPRO) 500 00:00: mouth [place] mg tablet 00 daily. Medical Branch ciprofloxac Yes [id number] 500mg Take 1 [facility] in HCl 5-30 tablet by ity of (CIPRO) 500 00:00: mouth [place] mg tablet 00 daily. Medical Branch ciprofloxac 2018- Yes [id number] 500mg Take 1 [facility] in HCl 5-30 tablet by ity of (CIPRO) 500 00:00: mouth [place] mg tablet 00 daily. Medical Branch ciprofloxac 2018- Yes [id number] 500mg Take 1 [facility] in HCl 5-30 tablet by ity of (CIPRO) 500 00:00: mouth [place] mg tablet 00 daily. Medical Branch ciprofloxac 2018- Yes [id number] 500mg Take 1 [facility] in HCl 5-30 tablet by ity of (CIPRO) 500 00:00: mouth [place] mg tablet 00 daily. Medical Branch ciprofloxac 2018-0 Yes [id number] 500mg Take 1 [facility] in HCl 5-30 tablet by ity of (CIPRO) 500 00:00: mouth [place] mg tablet 00 daily. Medical Branch ciprofloxac 2018- Yes [id number] 500mg Take 1 [facility] in HCl 5-30 tablet by ity of (CIPRO) 500 00:00: mouth [place] mg tablet 00 daily. Medical Branch ciprofloxac 2019-0 Yes [id number] 500mg Take 1 [facility] in HCl 5-30 tablet by ity of (CIPRO) 500 00:00: mouth [place] mg tablet 00 daily. Medical Branch ciprofloxac 2018-0 Yes [id number] 500mg Take 1 [facility] in HCl 5-30 tablet by ity of (CIPRO) 500 00:00: mouth [place] mg tablet 00 daily. Medical Branch ciprofloxac 2018-0 Yes [id number] 500mg Take 1 [facility] in HCl 5-30 tablet by ity of (CIPRO) 500 00:00: mouth [place] mg tablet 00 daily. Medical Branch ciprofloxac 2018-0 Yes [id number] 500mg Take 1 [facility] in HCl 5-30 tablet by ity of (CIPRO) 500 00:00: mouth [place] mg tablet 00 daily. Medical Branch ciprofloxac 2018-0 Yes [id number] 500mg Take 1 [facility] in HCl 5-30 tablet by ity of (CIPRO) 500 00:00: mouth [place] mg tablet 00 daily. Medical Branch ciprofloxac 2018-0 Yes [id number] 500mg Take 1 [facility] in HCl 5-30 tablet by ity of (CIPRO) 500 00:00: mouth [place] mg tablet 00 daily. Medical Branch ciprofloxac 2018-0 Yes [id number] 500mg Take 1 [facility] in HCl 5-30 tablet by ity of (CIPRO) 500 00:00: mouth [place] mg tablet 00 daily. Medical Branch ciprofloxac 2018-0 Yes [id number] 500mg Take 1 [facility] in HCl 5-30 tablet by ity of (CIPRO) 500 00:00: mouth [place] mg tablet 00 daily. Medical Branch ciprofloxac 2018-0 Yes [id number] 500mg Take 1 [facility] in HCl 5-30 tablet by ity of (CIPRO) 500 00:00: mouth [place] mg tablet 00 daily. Medical Branch ciprofloxac 2018-0 Yes [id number] 500mg Take 1 [facility] in HCl 5-30 tablet by ity of (CIPRO) 500 00:00: mouth [place] mg tablet 00 daily. Medical Branch tamsulosin 2018-0 Yes [id number] .4mg Take 1 [facility] 0.4 mg 24 5-01 capsule by ity of hr capsule 00:00: mouth at [place] 00 bedtime. [facility] Branch tamsulosin 2019-0 Yes [id number] .4mg Take 1 [facility] 0.4 mg 24 5-01 capsule by ity of hr capsule 00:00: mouth at [place] 00 bedtime. [facility] Branch tamsulosin 2019-0 Yes [id number] .4mg Take 1 [facility] 0.4 mg 24 5-01 capsule by ity of hr capsule 00:00: mouth at [place] 00 bedtime. Medical Branch tamsulosin 2019-0 Yes [id number] .4mg Take 1 [facility] 0.4 mg 24 5-01 capsule by ity of hr capsule 00:00: mouth at [place] 00 bedtime. [facility] Branch tamsulosin 2019-0 Yes [id number] .4mg Take 1 [facility] 0.4 mg 24 5-01 capsule by ity of hr capsule 00:00: mouth at [place] 00 bedtime. [facility] Branch tamsulosin 2019-0 Yes [id number] .4mg Take 1 [facility] 0.4 mg 24 5-01 capsule by ity of hr capsule 00:00: mouth at [place] 00 bedtime. [facility] Branch tamsulosin 2019-0 Yes [id number] .4mg Take 1 [facility] 0.4 mg 24 5-01 capsule by ity of hr capsule 00:00: mouth at [place] 00 bedtime. [facility] Branch tamsulosin 2019-0 Yes [id number] .4mg Take 1 [facility] 0.4 mg 24 5-01 capsule by ity of hr capsule 00:00: mouth at [place] 00 bedtime. [facility] Branch tamsulosin 2019-0 Yes [id number] .4mg Take 1 [facility] 0.4 mg 24 5-01 capsule by ity of hr capsule 00:00: mouth at [place] 00 bedtime. [facility] Branch tamsulosin 2019-0 Yes [id number] .4mg Take 1 [facility] 0.4 mg 24 5-01 capsule by ity of hr capsule 00:00: mouth at [place] 00 bedtime. Medical Branch tamsulosin 2019-0 Yes [id number] .4mg Take 1 [facility] 0.4 mg 24 5-01 capsule by ity of hr capsule 00:00: mouth at [place] as 00 bedtime. [facility] tamsulosin 2019-0 Yes [id number] .4mg Take 1 [facility] 0.4 mg 24 5-01 capsule by ity of hr capsule 00:00: mouth at [place] 00 bedtime. [facility] tamsulosin 2019-0 Yes [id number] .4mg Take 1 [facility] 0.4 mg 24 5-01 capsule by ity of hr capsule 00:00: mouth at [place] 00 bedtime. [facility] tamsulosin 2019-0 Yes [id number] .4mg Take 1 [facility] 0.4 mg 24 5-01 capsule by ity of hr capsule 00:00: mouth at [place] 00 bedtime. [facility] tamsulosin 2019-0 Yes [id number] .4mg Take 1 [facility] 0.4 mg 24 5-01 capsule by ity of hr capsule 00:00: mouth at [place] 00 bedtime. [facility] tamsulosin 2018-0 Yes [id number] .4mg Take 1 [facility] 0.4 mg 24 5-01 capsule by ity of hr capsule 00:00: mouth at [place] 00 bedtime. [facility] tamsulosin 2018-0 Yes [id number] .4mg Take 1 [facility] 0.4 mg 24 5-01 capsule by ity of hr capsule 00:00: mouth at [place] 00 bedtime. [facility] tamsulosin 2018-0 Yes [id number] .4mg Take 1 [facility] 0.4 mg 24 5-01 capsule by ity of hr capsule 00:00: mouth at [place] 00 bedtime. [facility] tamsulosin 2018-0 Yes [id number] .4mg Take 1 [facility] 0.4 mg 24 5-01 capsule by ity of hr capsule 00:00: mouth at [place] 00 bedtime. [facility] tamsulosin 2018-0 Yes [id number] .4mg Take 1 [facility] 0.4 mg 24 5-01 capsule by ity of hr capsule 00:00: mouth at [place] 00 bedtime. [facility] tamsulosin 2019-0 Yes [id number] .4mg Take 1 [facility] 0.4 mg 24 5-01 capsule by ity of hr capsule 00:00: mouth at [place] 00 bedtime. [facility] ATORVASTATI 2017-0 Yes TAKE 1 Univ ers N 80 mg 7-09 TABLET BY ity of tablet 00:00: MOUTH 00 EVERY Medical NIGHT AT Branch BEDTIME ATORVASTATI 2018-0 Yes TAKE 1 Univ ers N 80 mg 7-09 TABLET BY ity of tablet 00:00: MOUTH 00 EVERY Medical NIGHT AT Branch BEDTIME ATORVASTATI Yes TAKE 1 Univ ers N 80 mg 7-09 TABLET BY ity of tablet 00:00: MOUTH [place] 00 EVERY Medical NIGHT AT [facility] ATORVASTA Yes TAKE 1 Univ ers N 80 mg 7-09 TABLET BY ity of tablet 00:00: MOUTH [place] 00 EVERY Medical NIGHT AT [facility] ATORVASTA Yes TAKE 1 Univ ers N 80 mg 7-09 TABLET BY ity of tablet 00:00: MOUTH [place] 00 EVERY Medical NIGHT AT [facility] ATORVASTA Yes TAKE 1 Univ ers N 80 mg 7-09 TABLET BY ity of tablet 00:00: MOUTH [place] 00 EVERY Medical NIGHT AT [facility] ATORVASTA Yes TAKE 1 Univ ers N 80 mg 7-09 TABLET BY ity of tablet 00:00: MOUTH [place] 00 EVERY Medical [facility] 80 mg 7-09 TABLET BY ity of tablet 00:00: MOUTH [place] 00 EVERY Medical [facility] N 80 mg 7-09 TABLET BY ity of tablet 00:00: MOUTH [place] 00 EVERY Medical NIGHT AT [facility] ATORVASTA Yes TAKE 1 Univ ers N 80 mg 7-09 TABLET BY ity of tablet 00:00: MOUTH [place] 00 EVERY Medical NIGHT AT [facility] ATORVASTA Yes TAKE 1 Univ ers N 80 mg 7-09 TABLET BY ity of tablet 00:00: MOUTH [place] 00 EVERY Medical NIGHT AT [facility] ATORVASTA Yes TAKE 1 Univ ers N 80 mg 7-09 TABLET BY ity of tablet 00:00: MOUTH [place] 00 EVERY Medical NIGHT AT [facility] ATORVASTA Yes TAKE 1 Univ ers N 80 mg 7-09 TABLET BY ity of tablet 00:00: MOUTH [place] 00 EVERY Medical NIGHT AT [facility] ATORVASTA Yes TAKE 1 Univ ers N 80 mg 7-09 TABLET BY ity of tablet 00:00: MOUTH [place] 00 EVERY Medical NIGHT AT [facility] ATORVASTA Yes TAKE 1 Univ ers N 80 mg 7-09 TABLET BY ity of tablet 00:00: MOUTH [place] 00 EVERY Medical NIGHT AT [facility] ATORVASTATI Yes TAKE 1 Univ ers N 80 mg 7-09 TABLET BY ity of tablet 00:00: MOUTH [place] 00 EVERY Medical NIGHT AT [facility] BEDTIME ATORVASTATI Yes TAKE 1 Univ ers N 80 mg 7-09 TABLET BY ity of tablet 00:00: MOUTH [place] 00 EVERY Medical NIGHT AT [facility] BEDTIME ATORVASTATI Yes TAKE 1 Univ ers N 80 mg 7-09 TABLET BY ity of tablet 00:00: MOUTH [place] 00 EVERY Medical NIGHT AT [facility] BEDTIME ATORVASTATI Yes TAKE 1 Univ ers N 80 mg 7-09 TABLET BY ity of tablet 00:00: MOUTH [place] 00 EVERY Medical NIGHT AT [facility] BEDTIME ATORVASTATI Yes TAKE 1 Univ ers N 80 mg 7-09 TABLET BY ity of tablet 00:00: MOUTH [place] 00 EVERY Medical [facility] TAKE 1 [facility] ers N 80 mg 7-09 TABLET BY ity of tablet 00:00: MOUTH [place] 00 EVERY Medical NIGHT AT [facility] Colace 100 2016-06 Yes 100 mg = 1 M emoria mg oral 06-29 caps, l capsule 21:25: Oral, BID Chelsie nn 00 [place] 10 2016-06 Yes See Memoria mg-325 mg 06-29 Instructio l oral tablet 21:25: ns, PRN Her alexander 00 for pain, 1 tabs Oral q4-6hr, # 40 tabs, 0 Refill(s) NS bolus 2016-06 No 250 mL, Memori a 250 mL 28 IV, BOLUS, l 19:24: other (see comment), start date 04/29/17 13:24:00 [employer] multivitami 2016-06 No 1 tabs, Mem oria n with 06-29 Tab, Oral, l minerals 15:00: Daily, first dose 04/29/17 9:00:00 [facility] aspirin 2016-06 No 325 mg = 1 Pradeep bentley -28 tabs, Tab, l 15:00: Oral, BID, first dose 04/29/17 9:00:00 [facility] valsartan 2016-06 No 320 mg, Memor ia -28 Tab, Oral, l 15:00: Daily, first dose 04/29/17 9:00:00 [facility], Patient's Own Meds Cartia XT 2016-06 No 240 mg, Memor ia 240 mg/24 06-29 Misc, l hours oral 15:00: Oral, Arturo n capsule, 00 Daily, extended first dose release 04/29/17 9:00:00 [facility], Patient's Own Meds Zyrtec 2016-06 No 10 mg = 1 Memori a 06-29 tabs, Tab, l 15:00: Oral, Romero Daily, first dose 04/29/17 9:00:00 [facility] Welchol 2016-06 No 625 mg, Memoria 06-29 Tab, Oral, l 14:00: qAM, first dose 04/29/17 8:00:00 [facility], Patient's Own Meds Colace 2016-06 No 100 mg = 1 Memor ia 06-29 caps, Cap, l 03:00: Oral, BID, [place] 00 first dose 04/28/17 21:00:00 [facility] [employer] sotalol 2016-06 No 80 mg = 1 Memor ia 06-29 tabs, Tab, l 03:00: Oral, BID, first dose 04/28/17 21:00:00 [facility], Patient's Own Meds atorvastati 2016-06 No 80 mg, Pradeep bentley n 06-29 Tab, Oral, l 03:00: qHS, first dose 04/28/17 21:00:00 [facility], Patient's Own Meds ferrous 2016-06 No 325 mg = 1 Pradeep bentley sulfate 06-29 tabs, Tab, l 01:00: Oral, TIDPC, first dose 04/28/17 19:00:00 [facility] Clindamycin 2016-06 No 600 mg, Mem oria 06-29 Soln-IV, l 00:30: IV Romero 00 Piggyback, q8hr, infuse over 30 minutes, order duration: 3 doses, first dose 04/28/17 18:30:00 [facility], stop date 04/29/17 18:29:00 [facility], Prophylaxi s Cefazolin 2016-06 No 1 gm, Memoria 06-28 Soln-IV, l 23:00: IV [place] 00 Piggyback, q8hr, infuse over 30 minutes, order duration: 3 doses, first dose 04/28/17 17:00:00 [facility], stop date 04/29/17 16:59:00 [employer] [facility], Prophylaxi s Aspirin 81 2016-06 No 81 mg = 1 Me moria MG Oral 1-27 tabs, l Tablet 21:36: Oral, BID, Chelsie nn 00 take for 6 weeks Colace 100 2016-06 Yes 100 mg = 1 M emoria mg oral -27 caps, l capsule 21:36: Oral, BID Chelsie nn 00 [place] 10 2016-06 Yes See Memoria mg-325 mg -27 Instructio l oral tablet 21:36: ns, PRN Her alexander 00 for pain, 1 tabs Oral q4-6hr, # 40 tabs, 0 Refill(s) Saline Lock 2016-06 No 10 mL, Pradeep bentley Flush 06-28 Soln, IV l 20:00: Push, Romero 00 q8hr, first dose 04/28/17 14:00:00 [facility] Bupivacaine 2016-06 No 300 mL, Mem oria 0.25% 300 - Nerve l mL pump 300 19:25: Block, 5 He rmann mL 00 mL/hr, start date 04/28/17 13:25:00 [facility] HYDROmorpho 2016-06 No 0.5 mg = Me moria ne -27 0.25 mL, l 19:24: Injection, [place] 00 IV Push, q6hr PRN for breakthrou gh pain, first dose 04/28/17 13:24:00 [facility] ondansetron 2016-06 No 4 mg = 2 Me moria -27 mL, l 19:24: Injection, [place] 00 IV Push, q4hr PRN for nausea/vom iting, first dose 04/28/17 13:24:00 [employer] [facility] promethazin 2016-06 No 25 mg = 1 M emoria e -27 mL, l 19:24: Injection, [place] 00 IM, q4hr PRN for severe nausea, first dose 04/28/17 13:24:00 [facility] [place] 10 2016-06 No Notes: Max Mem oria mg-325 mg -27 4gm l oral tablet 19:24: acetaminop Romero 00 hen in 24 hours diphenhydrA 2016-06 No 25 mg = 1 M emoria MINE -27 caps, Cap, l 19:24: Oral, q8hr PRN for itching, first dose 04/28/17 13:24:00 [facility] Flu Shot PF 2016-06 No 0.5 mL, Mem oria 06-28 Injection, l 19:22: IM, Once PRN for other (see comment), first dose 04/28/17 13:22:00 [facility] bisacodyl 2016-06 No 10 mg = 2 Mem oria 06-28 tabs, l 19:22: Tab-DR, Oral, Daily PRN for constipati on, first dose 04/28/17 13:22:00 [employer] LR 1,000 mL 2016-06 No 1,000 mL, M emoria 06-28 IV, 125 l 19:22: mL/hr, start date 04/28/17 13:22:00 [facility] Saline Lock 2016-06 No 10 mL, Pradeep bentley Flush 06-28 Soln, IV l 19:22: Push, As Indicated PRN for flush, first dose 04/28/17 13:22:00 [facility] Lactated 2016-06 No IV, start Pradeep bentley Ringers 06-28 date l Injection 19:08: 04/28/17 Herm anshul 00 13:08:00 [employer] [facility], stop date 04/28/17 13:08:00 [facility] promethazin 2016-06 No 12.5 mg = M emoria e 06-28 0.5 mL, l 19:08: Injection, IM, Once PRN for vomiting, first dose 04/28/17 13:08:00 [facility] ondansetron 2016-06 No 8 mg = 1 Me moria 06-28 tabs, l 19:08: Tab-Dis, Oral, Once PRN for nausea, first dose 04/28/17 13:08:00 [facility] Dilaudid 2016-06 No 0.2 mg = Memor ia 06-28 0.1 mL, l 19:08: Injection, IV Push, q10min PRN for pain severe (7-10), first dose 04/28/17 13:08:00 [facility] Saline Lock 2016-06 No 10 mL, Pradeep bentley Flush 06-28 Soln, IV l 19:08: Push, As Indicated PRN for flush, first dose 04/28/17 13:08:00 [facility] ondansetron 2016-06 No 4 mg = 2 Me moria 1-27 mL, l 18:46: Injection, Romero IV, Once, first dose 04/28/17 12:46:00 [employer] [facility], stop date 04/28/17 12:46:00 [facility] ePHEDrine 2016-06 No 10 mg = Memor ia 06-28 0.2 mL, l 18:21: Injection, Romero 00 IV, Once, first dose 04/28/17 12:21:00 [facility], stop date 04/28/17 12:21:00 [facility] ePHEDrine 2016-06 No 5 mg = 0.1 Me moria 1-27 mL, l 18:10: Injection, Romero 00 IV, Once, first dose 04/28/17 12:10:00 [facility], stop date 04/28/17 12:10:00 [facility] ePHEDrine 2016-06 No 5 mg = 0.1 Me moria 1-27 mL, l 18:05: Injection, IV, Once, first dose 04/28/17 12:05:00 [facility], stop date 04/28/17 12:05:00 [facility] HYDROmorpho 2016-06 No 0.25 mg = M emoria ne 06-28 0.13 mL, l 17:56: Injection, IV, Once, first dose 04/28/17 11:56:00 [employer] [facility], stop date 04/28/17 11:56:00 [facility] HYDROmorpho 2016-06 No 0.25 mg = M emoria ne 27 0.13 mL, l 17:24: Injection, IV, Once, first dose 04/28/17 11:24:00 [facility], stop date 04/28/17 11:24:00 [facility] Misc 2016-06 No 1,000 mL, Memoria Medication 06-28 Soln-IV, l 17:16: IV, Once, first dose 04/28/17 11:16:00 [employer] [facility], stop date 04/28/17 11:16:00 [facility] acetaminoph 2016- No 1,000 mg, M emoria en 06-28 Soln-IV, l 17:11: IV Romero 00 Piggyback, Once, first dose 04/28/17 11:11:00 [facility], stop date 04/28/17 11:11:00 [facility] HYDROmorpho 2016-06 No 0.25 mg = Marya linkria ne -27 0.13 mL, l 17:05: Injection, [place] 00 IV, Once, first dose 04/28/17 11:05:00 [employer], stop date 04/28/17 11:05:00 [employer] midazolam 2017 No 0.5 mg = Pradeep bentley 1-27 0.5 mL, l 17:03: Injection, Romero 00 IV, Once, first dose 04/28/17 11:03:00 [employer], stop date 04/28/17 11:03:00 [employer] fentaNYL 2016-06 No 25 mcg = Memor ia 1-27 0.5 mL, l 17:03: Injection, [place] 00 IV, Once, first dose 04/28/17 11:03:00 [employer], stop date 04/28/17 11:03:00 [facility] [employer] clindamycin 2016-06 No 900 mg, Mem oria 06-28 Soln-IV, l 16:59: IV, Once, Romero 00 first dose 04/28/17 10:59:00 [employer], stop date 04/28/17 10:59:00 [employer] ePHEDrine 2016-06 No 10 mg = Memor ia 1-27 0.2 mL, l 16:53: Injection, [place] 00 IV, Once, first dose 04/28/17 10:53:00 [employer] [facility], stop date 04/28/17 10:53:00 [facility] [employer] ePHEDrine 2016-06 No 10 mg = Memor ia 1-27 0.2 mL, l 16:49: Injection, Romero 00 IV, Once, first dose 04/28/17 10:49:00 [employer], stop date 04/28/17 10:49:00 [employer] HYDROmorpho 2016-06 No 0.25 mg = Marya galindoa ne -27 0.13 mL, l 16:45: Injection, [place] 00 IV, Once, first dose 04/28/17 10:45:00 [employer], stop date 04/28/17 10:45:00 [employer] dexamethaso 2016-06 No 8 mg = 2 Me moria ne 1-27 mL, l 16:42: Injection, [place] 00 IV, Once, first dose 04/28/17 10:42:00 [employer], stop date 04/28/17 10:42:00 [employer] lidocaine 2016-06 No 2 mL, Memoria 06-28 Injection, l 16:35: IV, Once, first dose 04/28/17 10:35:00 [employer], stop date 04/28/17 10:35:00 [facility] [employer] propofol 2016-06 No 100 mg = Memor ia 1-27 10 mL, l 16:35: Emulsion, IV, Once, first dose 04/28/17 10:35:00 [employer] [facility], stop date 04/28/17 10:35:00 [facility] fentaNYL 2016-06 No 25 mcg = Memor ia 1-27 0.5 mL, l 16:25: Injection, IV, Once, first dose 04/28/17 10:25:00 [employer] [facility], stop date 04/28/17 10:25:00 [facility] [employer] midazolam 2016-06 No 0.5 mg = Pradeep bentley -27 0.5 mL, l 16:25: Injection, IV, Once, first dose 04/28/17 10:25:00 [employer] [facility], stop date 04/28/17 10:25:00 [facility] fentaNYL 2016-06 No 25 mcg = Memor ia -27 0.5 mL, l 15:29: Injection, IV, Once, first dose 04/28/17 9:29:00 [employer], stop date 04/28/17 9:29:00 [facility] midazolam 2016-06 No 0.5 mg = Pradeep bentley -27 0.5 mL, l 15:29: Injection, IV, Once, first dose 04/28/17 9:29:00 [employer], stop date 04/28/17 9:29:00 [facility] Clindamycin 2016-06 No 900 mg, Mem oria 06-28 Soln-IV, l 15:00: IV [place] 00 Piggyback, Once, infuse over 30 minutes, first dose 04/28/17 9:00:00 [employer] [facility], stop date 04/28/17 9:00:00 [facility], Prophylaxi s Lidocaine 2016-06 No 0.2 mL, Memor ia 2% 0.2 mL 06-28 Injection, l IV Start 14:27: Subcutaneo [facility] [[place]] 00 us, Once PRN for other (see comment), first dose 04/28/17 8:27:00 [employer] LR 1,000 mL 2016-06 No 1,000 mL, M emoria 06-28 IV, 30 l 14:27: mL/hr, [place] start date 04/28/17 8:27:00 [employer] cyanocobala 2016-06 Yes See Memori a min 06-15 Instructio l 23:49: ns, PT DID Romero 00 NOT BRING SL, 0 Refill(s), supplement Vitamin D3 2016-06 Yes 1,000 Memori a 1000 intl 06-15 IntUnit = l units oral 23:49: 1 caps, Herm anshul capsule 00 Oral, Daily, PT DID NOT BRING, # 100 caps, 0 Refill(s), supplement cranberry 2016-06 Yes 400 mg =, Mem oria oral 14 Oral, l capsule 23:49: Daily, PT Chelsie nn 00 DID NOT BRING, 0 Refill(s), supplement Vitamin C 2016-06 Yes See Memoria 06-15 Instructio l 23:49: ns, Daily, [place] PT DID NOT BRING, 0 Refill(s), supplement valsartan 2016-06 Yes 320 mg = 1 Me moria 320 mg oral -14 tabs, l tablet 23:49: Oral, [place] 00 Daily, pt inst to not take the am of sx, # 90 tabs, 0 Refill(s), htn Sotalol 2016-06 Yes 80 mg = 1 Memor ia Hydrochlori -14 tabs, l de 80 MG 23:49: Oral, BID, Her alexander Oral Tablet 00 pt inst to take the am of sx, # 60 tabs, 0 Refill(s), htn Cartia XT 2016-06 Yes 240 mg = 1 Me moria 240 mg/24 1-14 caps, l hours oral 23:49: Oral, Arturo n capsule, 00 Daily, pt extended inst to release take the am of sx, # 30 caps, 0 Refill(s), htn Welchol 625 2016-06 Yes 625 mg = 1 Memoria mg oral -14 tabs, l tablet 23:49: Oral, qAM, Chelsie nn 00 rx states TID before meals, 0 Refill(s), IBS atorvastati 2016-06 Yes 80 mg = 1 M emoria n 80 mg 1-14 tabs, l oral tablet 23:49: Oral, qHS, Romero 00 # 30 tabs, 0 Refill(s), hyperchole sterolemia Zyrtec 2016-06 Yes 10 mg, Memoria 1-14 Oral, l 22:52: Daily, 0 [place] 00 Refill(s), seasonal allergy lactobacill 2016-06 Yes 1 cap, Pradeep bentley us 1-14 Daily, l acidophilus 22:52: ultimate He rmann 00 [place] probiotic supplement OTC, 0 Refill(s), IBS Melatonin 2016-06 Yes 10 mg, Memori a 1-14 Oral, qHS, l 22:52: PT DID NOT Romero 00 BRING, 0 Refill(s), sleep rivaroxaban 2016-06 Yes 20 mg = 1 M emoria 20 MG Oral 1-14 tabs, l Tablet 22:49: Oral, qPM, Chelsie nn [Xarelto] 00 0 Refill(s), afib [place] [address] Yes [id number] TAKE 1 [facility] mg tablet 9-05 TABLET BY ity o f 00:00: MOUTH [place] 00 EVERY DAY. [facility] 625 Yes [id number] TAKE 1 Univers mg tablet 9-05 TABLET BY ity o f 00:00: MOUTH [place] 00 EVERY DAY. [facility] 625 Yes [id number] TAKE 1 Univers mg tablet 9-05 TABLET BY ity o f 00:00: MOUTH [place] 00 EVERY DAY. [facility] 625 Yes [id number] TAKE 1 Univers mg tablet 9-05 TABLET BY ity o f 00:00: MOUTH [place] 00 EVERY DAY. [facility] 625 Yes [id number] TAKE 1 [facility] mg tablet 9-05 TABLET BY ity o f 00:00: MOUTH [place] 00 EVERY DAY. [facility] 625 Yes [id number] TAKE 1 [facility] mg tablet 9-05 TABLET BY ity o f 00:00: MOUTH [place] 00 EVERY DAY. [facility] 625 Yes [id number] TAKE 1 [facility] mg tablet 9-05 TABLET BY ity o f 00:00: MOUTH [place] 00 EVERY DAY. [facility] 625 Yes [id number] TAKE 1 [facility] mg tablet 9-05 TABLET BY ity o f 00:00: MOUTH [place] 00 EVERY DAY. [facility] 625 2016-0 Yes [id number] TAKE 1 [facility] mg tablet 9-05 TABLET BY ity o f 00:00: MOUTH [place] 00 EVERY DAY. Medical [facility] 625 2016-0 Yes [id number] TAKE 1 [facility] mg tablet 9-05 TABLET BY ity o f 00:00: MOUTH [place] 00 EVERY DAY. Medical [facility] 625 2016-0 Yes [id number] TAKE 1 Univers mg tablet 9-05 TABLET BY ity o f 00:00: MOUTH [place] 00 EVERY DAY. Medical [facility] 625 2016-0 Yes [id number] TAKE 1 [facility] mg tablet 9-05 TABLET BY ity o f 00:00: MOUTH [place] 00 EVERY DAY. Medical [facility] 625 2016-0 Yes [id number] TAKE 1 [facility] mg tablet 9-05 TABLET BY ity o f 00:00: MOUTH [place] 00 EVERY DAY. Medical [facility] 625 2016-0 Yes [id number] TAKE 1 [facility] mg tablet 9-05 TABLET BY ity o f 00:00: MOUTH [place] 00 EVERY DAY. Medical Branch [facility] 625 0 Yes [id number] TAKE 1 Univers mg tablet 9-05 TABLET BY ity o f 00:00: MOUTH [place] 00 EVERY DAY. Medical [facility] 625 0 Yes [id number] TAKE 1 Univers mg tablet 9-05 TABLET BY ity o f 00:00: MOUTH [place] 00 EVERY DAY. Medical [facility] 625 2016-0 Yes [id number] TAKE 1 [facility] mg tablet 9-05 TABLET BY ity o f 00:00: MOUTH [place] 00 EVERY DAY. Medical [facility] 625 2016-0 Yes [id number] TAKE 1 [facility] mg tablet 9-05 TABLET BY ity o f 00:00: MOUTH [place] 00 EVERY DAY. Medical [facility] 625 2016-0 Yes [id number] TAKE 1 [facility] mg tablet 9-05 TABLET BY ity o f 00:00: MOUTH [place] 00 EVERY DAY. [facility] 625 2016-0 Yes [id number] TAKE 1 [facility] mg tablet 9-05 TABLET BY ity o f 00:00: MOUTH [place] 00 EVERY DAY. [facility] 625 2016-0 Yes [id number] TAKE 1 [facility] mg tablet 9-05 TABLET BY ity o f 00:00: MOUTH [place] 00 EVERY DAY. [facility] sotal 80 Yes TK 1 T PO Un sarah mg tablet 8-16 BID ity of 00:00: [place] [facility] sotalol 80 Yes TK 1 T PO Un sarah mg tablet 8-16 BID ity of 00:00: Medical Branch sotalol 80 Yes TK 1 T PO Un sarah mg tablet 8-16 BID ity of 00:00: Medical Branch sotalol 80 Yes TK 1 T PO Un sarah mg tablet 8-16 BID ity of 00:00: Medical Branch sotalol 80 Yes TK 1 T PO Un sarah mg tablet 8-16 BID ity of 00:00: Medical Branch sotalol 80 Yes TK 1 T PO Un sar[place] mg tablet 8-16 BID ity of 00:00: Medical Branch sotalol 80 Yes TK 1 T PO Un sar[place] mg tablet 8-16 BID ity of 00:00: Medical Branch sotalol 80 Yes TK 1 T PO Un [place] mg tablet 8-16 BID ity of 00:00: Medical Branch sotalol 80 Yes TK 1 T PO Un [place] mg tablet 8-16 BID ity of 00:00: Medical Branch sotalol 80 Yes TK 1 T PO Un [place] mg tablet 8-16 BID ity of 00:00: Medical Branch sotalol 80 Yes TK 1 T PO Un [place] mg tablet 8-16 BID ity of 00:00: Medical Branch sotalol 80 Yes TK 1 T PO Un [place] mg tablet 8-16 BID ity of 00:00: Medical Branch sotalol 80 Yes TK 1 T PO Un [place] mg tablet 8-16 BID ity of 00:00: Medical Branch sotalol 80 Yes TK 1 T PO Un [place] mg tablet 8-16 BID ity of 00:00: Medical Branch sotalol 80 Yes TK 1 T PO Un [place] mg tablet 8-16 BID ity of 00:00: Medical Branch sotalol 80 Yes TK 1 T PO Un [place] mg tablet 8-16 BID ity of 00:00: Medical Branch sotalol 80 Yes TK 1 T PO Un [place] mg tablet 8-16 BID ity of 00:00: Medical Branch sotalol 80 Yes TK 1 T PO Un [place] mg tablet 8-16 BID ity of 00:00: Medical Branch sotalol 80 Yes TK 1 T PO Un [place] mg tablet 8-16 BID ity of 00:00: Medical Branch sotalol 80 Yes TK 1 T PO Un [place] mg tablet 8-16 BID ity of 00:00: Medical Branch sotalol 80 Yes TK 1 T PO Un [place] mg tablet 8-16 BID ity of 00:00: [facility] Branch XARELTO 20 Yes TK 1 T PO Un sarah mg tablet 8-06 QD WITH ity of 00:00: THE [facility] Branch XARELTO 20 Yes TK 1 T PO Un sarah mg tablet 8-06 QD WITH ity of 00:00: THE [facility] Branch XARELTO 20 Yes TK 1 T PO Un [place] mg tablet 8-06 QD WITH ity of 00:00: THE [facility] Branch XARELTO 20 Yes TK 1 T PO Un [place] mg tablet 8-06 QD WITH ity of 00:00: THE [facility] Branch XARELTO 20 Yes TK 1 T PO Un [place] mg tablet 8-06 QD WITH ity of 00:00: THE [facility] Branch XARELTO 20 Yes TK 1 T PO Un [place] mg tablet 8-06 QD WITH ity of 00:00: THE [facility] Branch XARELTO 20 Yes TK 1 T PO Un [place] mg tablet 8-06 QD WITH ity of 00:00: THE [facility] Branch XARELTO 20 Yes TK 1 T PO Un [place] mg tablet 8-06 QD WITH ity of 00:00: THE [facility] Branch XARELTO 20 Yes TK 1 T PO Un [place] mg tablet 8-06 QD WITH ity of 00:00: THE [facility] Medical Branch XARELTO 20 Yes TK 1 T PO Un [place] mg tablet 8-06 QD WITH ity of 00:00: THE [facility] Medical Branch XARELTO 20 Yes TK 1 T PO Un [place] mg tablet 8-06 QD WITH ity of 00:00: THE [facility] Medical Branch XARELTO 20 Yes TK 1 T PO Un [place] mg tablet 8-06 QD WITH ity of 00:00: [facility] Medical Branch XARELTO 20 Yes TK 1 T PO Un [place] mg tablet 8-06 QD WITH ity of 00:00: [facility] Medical Branch XARELTO 20 Yes TK 1 T PO Un [place] mg tablet 8-06 QD WITH ity of 00:00: [facility] Medical Branch XARELTO 20 Yes TK 1 T PO Un sar[place] mg tablet 8-06 QD WITH ity of 00:00: [facility] Medical Branch XARELTO 20 Yes TK 1 T PO Un [place] mg tablet 8-06 QD WITH ity of 00:00: [facility] Medical Branch XARELTO 20 Yes TK 1 T PO Un sar[place] mg tablet 8-06 QD WITH ity of 00:00: [facility] Medical Branch XARELTO 20 Yes TK 1 T PO Un [place] mg tablet 8-06 QD WITH ity of 00:00: [facility] Medical Branch XARELTO 20 Yes TK 1 T PO Un [place] mg tablet 8-06 QD WITH ity of 00:00: [facility] Medical Branch XARELTO 20 Yes TK 1 T PO Un [place] mg tablet 8-06 QD WITH ity of 00:00: [facility] Medical Branch XARELTO 20 Yes TK 1 T PO Un [place] mg tablet 8-06 QD WITH ity of 00:00: [facility] Medical Branch atorvastati atorvastati No atorvastat [place] 80 mg n 80 mg in 80 mg da tablet tablet tablet [facility] colesevelam colesevelam No 1 TID colesevela [place] 625 mg 625 mg m 625 mg da tablet Take tablet Take tablet [facility] 1 tablet 3 1 tablet 3 Take 1 a l times a day times a day tablet 3 Health by oral by oral times a Outrea c route for route for day by h 90 days. 90 days. oral route P rogram for 90 days. CoQ-10 CoQ-10 No CoQ-10 [place] [facility] cranberry cranberry No cranberry [place] [facility] diltiazem diltiazem No diltiazem [place] CD 180 mg CD 180 mg CD 180 mg da capsule,ext capsule,ext capsule,ex [facility] ended ended tended al release 24 release 24 release 24 Health hr hr hr Outreac h Program EpiPen EpiPen No EpiPen [place] [facility] irbesartan irbesartan No irbesartan [place] 300 mg 300 mg 300 mg da tablet tablet tablet [facility] magnesium magnesium No magnesium [place] [facility] melatonin melatonin No melatonin [place] [facility] Probiotic Probiotic No Probiotic [place] [facility] sotalol 80 sotalol 80 No sotalol 80 [place] mg tablet mg tablet mg tablet da [facility] vitamin B vitamin B No vitamin B [place] complex complex complex da tablet Take tablet Take tablet [facility]isc[facility] by oral by oral Take by al route. route. oral Health route. Outreac h Program Xarelto 20 Xarelto 20 No Xarelto 20 [place] mg tablet mg tablet mg tablet da [facility] Zyrtec Zyrtec No Zyrtec [place] [facility] Immunizations Ordered Filled Immunization Date Status Comments Sour e Immunization Name Name SARS-COV-2 COVID-19 2021-04-24 Completed Unive rsity of PFIZER VACCINE 00:00:00 [facility] SARS-COV-2 COVID-19 2021-04-24 Completed Unive rsity of PFIZER VACCINE 00:00:00 [facility] SARS-COV-2 COVID-19 2021-04-24 Completed Unive rsity of PFIZER VACCINE 00:00:00 [place] [facility] SARS-COV-2 COVID-19 2021-04-24 Completed Unive rsity of PFIZER VACCINE 00:00:00 [facility] SARS-COV-2 COVID-19 2021-04-24 Completed Unive rsity of PFIZER VACCINE 00:00:00 [facility] SARS-COV-2 COVID-19 2021-04-24 Completed Unive rsity of PFIZER VACCINE 00:00:00 [facility] SARS-COV-2 COVID-19 2020-07-14 Completed Unive rsity of MODERNA VACCINE 00:00:00 [facility] ical Branch SARS-COV-2 COVID-19 2020-07-14 Completed Unive rsity of MODERNA VACCINE 00:00:00 [facility] ical Branch SARS-COV-2 COVID-19 2020-07-14 Completed Unive rsity of MODERNA VACCINE 00:00:00 [facility] ical Branch SARS-COV-2 COVID-19 2020-07-14 Completed Unive rsity of MODERNA VACCINE 00:00:00 [facility] ical Branch SARS-COV-2 COVID-19 2020-07-14 Completed Unive rsity of MODERNA VACCINE 00:00:00 [facility] ical Branch SARS-COV-2 COVID-19 2020-07-14 Completed Unive rsity of MODERNA VACCINE 00:00:00 [facility] ical Branch SARS-COV-2 COVID-19 2020-06-15 Completed Unive rsity of MODERNA VACCINE 00:00:00 [facility] ical Branch SARS-COV-2 COVID-19 2020-06-15 Completed Unive rsity of MODERNA VACCINE 00:00:00 [facility] ical Branch SARS-COV-2 COVID-19 2020-06-15 Completed Unive rsity of MODERNA VACCINE 00:00:00 [facility] ical Branch SARS-COV-2 COVID-19 2020-06-15 Completed Unive rsity of MODERNA VACCINE 00:00:00 [facility] ical Branch SARS-COV-2 COVID-19 2020-06-15 Completed Unive rsity of MODERNA VACCINE 00:00:00 [facility] ical Branch SARS-COV-2 COVID-19 2020-06-15 Completed Unive rsity of MODERNA VACCINE 00:00:00 [place] [facility] ical Branch Pneumococcal 2017-02-18 Completed University o f Polysaccharide, 00:00:00 [place] [facility] PPSV23 (PNEUMOVAX) Branch Pneumococcal 2017-02-18 Completed University o f Polysaccharide, 00:00:00 [place] [facility] PPSV23 (PNEUMOVAX) Branch Pneumococcal 2017-02-18 Completed University o f Polysaccharide, 00:00:00 [place] [facility] PPSV23 (PNEUMOVAX) Branch Pneumococcal 2017-02-18 Completed University o f Polysaccharide, 00:00:00 [place] [facility] PPSV23 (PNEUMOVAX) Branch Pneumococcal 2017-02-18 Completed University o f Polysaccharide, 00:00:00 [place] [facility] PPSV23 (PNEUMOVAX) Branch Pneumococcal 2017-02-18 Completed University o f Polysaccharide, 00:00:00 [place] [facility] PPSV23 (PNEUMOVAX) Branch Pneumococcal 2017-02-18 Completed University o f Polysaccharide, 00:00:00 [place] [facility] PPSV23 (PNEUMOVAX) Branch Pneumococcal 2017-02-18 Completed University o f Polysaccharide, 00:00:00 [place] [facility] PPSV23 (PNEUMOVAX) Branch Pneumococcal 2017-02-18 Completed University o f Polysaccharide, 00:00:00 [place] [facility] PPSV23 (PNEUMOVAX) Branch Pneumococcal 2017-02-18 Completed University o f Polysaccharide, 00:00:00 [place] [facility] PPSV23 (PNEUMOVAX) Branch Pneumococcal 2017-02-18 Completed University o f Polysaccharide, 00:00:00 [place] [facility] PPSV23 (PNEUMOVAX) Branch Pneumococcal 2017-02-18 Completed University o f Polysaccharide, 00:00:00 [place] [facility] PPSV23 (PNEUMOVAX) Branch Pneumococcal 2017-02-18 Completed University o f Polysaccharide, 00:00:00 [place] [facility] PPSV23 (PNEUMOVAX) Branch Pneumococcal 2017-02-18 Completed University o f Polysaccharide, 00:00:00 [place] [facility] PPSV23 (PNEUMOVAX) Branch Pneumococcal 2017-02-18 Completed University o f Polysaccharide, 00:00:00 [place] [facility] PPSV23 (PNEUMOVAX) Branch Pneumococcal 2017-02-18 Completed University o f Polysaccharide, 00:00:00 [place] [facility] PPSV23 (PNEUMOVAX) Branch Pneumococcal 2017-02-18 Completed University o f Polysaccharide, 00:00:00 [place] [facility] PPSV23 (PNEUMOVAX) Branch Pneumococcal 2017-02-18 Completed [place] o f Polysaccharide, 00:00:00 [place] [facility] PPSV23 (PNEUMOVAX) Branch Pneumococcal 2017-02-18 Completed [place] o f Polysaccharide, 00:00:00 [place] [facility] PPSV23 (PNEUMOVAX) Branch Pneumococcal 2017-02-18 Completed [place] o f Polysaccharide, 00:00:00 [place] [facility] PPSV23 (PNEUMOVAX) Branch Pneumococcal 2017-02-18 Completed [place] o f Polysaccharide, 00:00:00 [place] [facility] PPSV23 (PNEUMOVAX) Branch Vital Signs Vital Name Observation Time Observation Value Comments Source BP Diastolic 2021-09-24 00:00:00 88 mm[Hg] [place] [facility] Height 2021-09-24 00:00:00 63 [in_i] [place] [facility] BMI (Body Mass 2021-09-24 00:00:00 32.6 kg/m2 [facility]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) [facility] BP Systolic 2021-09-24 00:00:00 165 mm[Hg] [place] [facility] Body Weight 2021-09-24 00:00:00 184 [lb_av] [facility] Systolic blood 2021-08-29 17:56:00 152 mm[Hg] Univer sity [facility] Diastolic blood 2021-08-29 17:56:00 65 mm[Hg] Unive [facility] Heart rate 2021-08-29 17:56:00 49 /min [facility] Respiratory rate 2021-08-29 17:56:00 21 /min [facility] Oxygen saturation in 2021-08-29 17:56:00 94 /min [facility] Arterial blood by [facility] Pulse oximetry Branch Body temperature 2021-08-29 17:45:00 36.44 Jenna [facility] Body height 2021-08-27 18:30:00 160 cm [facility] Body weight 2021-08-27 18:30:00 83.915 kg [facility] [place] [facility] BMI 2021-08-27 18:30:00 32.77 kg/m2 [facility] [place] [facility] Systolic blood 2021-08-29 15:15:00 148 mm[Hg] Univer sity of pressure [place] [facility] Diastolic blood 2021-08-29 15:15:00 65 mm[Hg] Unive rsity of pressure [facility] Heart rate 2021-08-29 15:15:00 53 /min [facility] [place] [facility] Body temperature 2021-08-29 15:15:00 36.44 Jenna Univ [facility] [place] [facility] Respiratory rate 2021-08-29 15:15:00 15 /min Univ [facility] [place] [facility] Oxygen saturation in 2021-08-29 15:15:00 95 /min University of Arterial blood by [facility] Pulse oximetry Branch Body height 2021-08-27 18:30:00 160 cm [facility] [place] [facility] Body weight 2021-08-27 18:30:00 83.915 kg [facility] [place] [facility] BMI 2021-08-27 18:30:00 32.77 kg/m2 [facility] [place] [facility] Heart rate 2021-08-15 15:40:00 62 /min [facility] [place] [facility] Respiratory rate 2021-08-15 15:40:00 18 /min Univ ers[facility] [place] [facility] Oxygen saturation in 2021-08-15 15:40:00 94 /min University of Arterial blood by [facility] Pulse oximetry Branch Systolic blood 2021-08-15 15:38:00 146 mm[Hg] Univer sity of pressure [place] [facility] Diastolic blood 2021-08-15 15:38:00 64 mm[Hg] Unive rsity of pressure [place] [facility] Body temperature 2021-08-15 15:30:00 36.56 Jenna [facility] [place] [facility] Body height 2021-08-04 10:28:00 160 cm [facility] [place] [facility] Body weight 2021-08-04 10:28:00 82.4 kg [facility] [place] [facility] BMI 2021-08-04 10:28:00 32.19 kg/m2 [facility] [place] [facility] Systolic blood 2021-08-15 12:58:00 164 mm[Hg] Univer sity of pressure [place] [facility] Diastolic blood 2021-08-15 12:58:00 74 mm[Hg] Unive rsity of pressure [facility] Heart rate 2021-08-15 12:58:00 60 /min [facility] [place] [facility] [place] Body temperature 2021-08-15 12:58:00 36.39 Jenna Univ ersity of [facility] Respiratory rate 2021-08-15 12:58:00 19 /min Univ ersity of [facility] Oxygen saturation in 2021-08-15 12:58:00 98 /min University of Arterial blood by [facility] Pulse oximetry Branch Body height 2021-08-04 10:28:00 160 cm [facility] [place] [facility] [place] Body weight 2021-08-04 10:28:00 82.4 kg [facility] [place] [facility] [place] BMI 2021-08-04 10:28:00 32.19 kg/m2 Universi ty of [facility] Systolic blood 2020-09-08 15:08:00 146 mm[Hg] Univer sity of pressure [facility] Diastolic blood 2020-09-08 15:08:00 80 mm[Hg] Unive rsity of pressure [facility] Heart rate 2020-09-08 15:03:00 54 /min [facility] [place] [facility] [place] Body weight 2020-09-08 15:03:00 82.373 kg [facility] [place] [facility] BMI 2020-09-08 15:03:00 32.17 kg/m2 [facility] [place] [facility] Systolic blood 2020-08-23 19:58:00 141 mm[Hg] Univer sity of pressure [facility] Diastolic blood 2020-08-23 19:58:00 77 mm[Hg] Unive rsity of pressure [place] [facility] Body height 2020-08-23 19:50:00 160 cm [facility] [place] [facility] Body weight 2020-08-23 19:50:00 86.183 kg [facility] [place] [facility] BMI 2020-08-23 19:50:00 33.66 kg/m2 [facility] [place] [facility] Body height 2020-03-09 15:22:00 160 cm [facility] [place] [facility] Body weight 2020-03-09 15:22:00 86.183 kg [facility] BMI 2020-03-09 15:22:00 33.66 kg/m2 [facility] BP Diastolic 2019-10-27 00:00:00 80 mm[Hg] [place] [facility] Height 2019-10-27 00:00:00 63 [in_i] [place] [facility] BMI (Body Mass 2019-10-27 00:00:00 33.2 kg/m2 [place]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) [facility] BP Systolic 2019-10-27 00:00:00 181 mm[Hg] [place] [facility] Body Weight 2019-10-27 00:00:00 187.4 [lb_av] [place] [facility] Respitory Rate 2017-04-29 18:00:00 Memori al [facility] Heart Rate 2017-04-29 18:00:00 [facility] Systolic (mm Hg) 2017-04-29 18:00:00 Pradeep rial [place] Diastolic (mm Hg) 2017-04-29 18:00:00 Mem orial [place] Temperature Oral (F) 2017-04-29 18:00:00 36.5 Jenna [facility] [place] Respitory Rate 2017-04-29 13:00:00 Memori al [place] Temperature Oral (F) 2017-04-29 13:00:00 36.5 Jenna [facility] Systolic (mm Hg) 2017-04-29 13:00:00 Pradeep rial [place] Diastolic (mm Hg) 2017-04-29 13:00:00 Mem orial [facility] Heart Rate 2017-04-29 13:00:00 [facility] Heart Rate 2017-04-29 10:00:00 [facility] Temperature Oral (F) 2017-04-29 10:00:00 36.5 Jenna [facility] [place] Systolic (mm Hg) 2017-04-29 10:00:00 Pradeep rial [place] Diastolic (mm Hg) 2017-04-29 10:00:00 Mem orial [facility] Respitory Rate 2017-04-29 10:00:00 Memori al [place] Temperature Oral (F) 2017-04-28 19:55:00 36.5 Jenna [facility] Temperature Oral (F) 2017-04-28 19:00:00 37.7 [facility] 2017-04-28 14:35:00 160.02 cm [facility] Height 2017-04-15 17:07:00 160.02 cm [facility] Procedures Procedure Date / Time Performing Source Performed Clinician MEDICATION CORRESPONDENCE 2021-09-24 Doctor Unassigned, [facility] 05:01:00 [place] [facility] PHACOEMULSIFICATION OF 2021-08-29 Augustine Langley [facility] CATARACT WITH INTRAOCULAR 17:04:00 Medica l Branch LENS IMPLANT CONSENT/REFUSAL FOR DIAGNOSIS 2021-08-27 Doctor Unassigned, [facility] AND TREATMENT 15:18:49 [place] [facility] CONSENT/REFUSAL FOR DIAGNOSIS 2021-08-27 Doctor Unassigned, [facility] AND TREATMENT 15:18:49 [place] [facility] ASSIGNMENT OF BENEFITS 2021-08-27 Doctor Unassigned, [facility] 15:17:26 [place] [facility] ASSIGNMENT OF BENEFITS 2021-08-27 Doctor Unassigned, [facility] 15:17:26 [place] [facility] PHACOEMULSIFICATION OF 2021-08-15 Augustine Langley [facility] CATARACT WITH INTRAOCULAR 14:50:00 Medica l Branch LENS IMPLANT DAY SURGERY - ADC 2021-08-15 Doctor Unassigned, [facility] 05:01:00 [place] [facility] NOTICE OF PRIVACY PRACTICES 2021-08-01 Doctor Unassigned, [facility] 23:24:21 [place] [facility] NOTICE OF PRIVACY PRACTICES 2021-08-01 Doctor Unassigned, [facility] 23:24:21 [place] [facility] CONSENT/REFUSAL FOR DIAGNOSIS 2021-08-01 Doctor Unassigned, [facility] AND TREATMENT 23:24:00 [place] [facility] CONSENT/REFUSAL FOR DIAGNOSIS 2021-08-01 Doctor Unassigned, [facility] AND TREATMENT 23:24:00 [place] [facility] ASSIGNMENT OF BENEFITS 2021-08-01 Doctor Unassigned, [facility] 23:23:34 [place] [facility] ASSIGNMENT OF BENEFITS 2021-08-01 Doctor Unassigned, [facility] 23:23:34 [place] [facility] MR LUMBAR SPINE WO CONTRAST 2020-09-05 Mary Jara [facility] [place] 15:46:26 [facility] REFERRAL- REQUEST/RESPONSE 2020-08-30 Doctor Unassigned, [facility] [place] 05:01:00 [place] [facility] REFERRAL- REQUEST/RESPONSE 2020-04-21 Doctor Unassigned, [facility] [place] 06:01:00 [place] [facility] REFERRAL- REQUEST/RESPONSE 2020-03-17 Doctor Unassigned, [facility] [place] 05:01:00 [place] [facility] EXTERNAL PROVIDER RECORDS 2019-11-11 Doctor Unassigned, [facility] [place] 05:01:00 [place] [facility] ARTHROPLASTY KNEE CONDYLE & 2017-04-28 Pradeep rial [facility]ero [facility] MEDIAL AND LATERAL 17:05:00 [id number] IO (Right)<sup>1</sup> stents removed from bilateral 2017-03-02 Me morial Romero ureters 00:00:00 stent placed in bilateral 2017-02-08 Lauraori al [place] ureters<sup>2</sup> 05:00:00 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, right cheek 00:00:00 colonoscopy 2008-06-02 [facility] 00:00:00 left knee replacement 2006-06-02 [facility] ermanshul 00:00:00 cervical fusion 2003-06-02 [facility] 00:00:00 hysterectomy 1989-06-02 [facility] 00:00:00 Procedure on Kidney [place] [facility] Excision of Basal Cell [place] [facility] Carpal Tunnel Surgery [place] [facility] Complete Repair of Rotator [place] [facility] Total 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 [facility] Arthrd Ant Ntrbd Min Dsc Crv [place] [facility] Total Hysterectomy [place] [facility] carpal tunnel<sup>3</sup> Yoana Chinchilla Encounters Start End Encounter Admission Attending Care Care Encounter Source Date/Time Date/Time Type Type Clinicians Facility Department ID 2021-09-24 2021-09-24 Outpatient Ferguson_Rosalba LINDSAY [facility] [id number] [place] 02:14:00 02:14:00 bin [id number] [facility] 2021-09-24 2021-09-24 Orders Doctor MADELEINE [id number] Univers 00:00:00 00:00:00 Only Unassigned, NISHANT [id number] ity of [place] [facility] [id number] Cheng as [id number] [address] 2021-09-24 2021-09-24 Tiago Barrett [facility] [id number] [place] 00:00:00 00:00:00 Jeremy Grey MD: [address], [facility], [facility] [place] [id number] h , Ph. Program 2021-08-29 2021-08-29 Outpatient R [facility] OPH [id number] Univers 10:01:00 13:07:00 [facility] 2021-08-29 2021-08-29 [facility] [id number] Univers 10:01:00 13:07:00 Encounter Augustine CANCINO [id number] [id number] [id number] [address] 2021-08-29 2021-08-29 Surgery [facility] [id number] Univers 11:21:00 12:02:00 Augustine CANCINO [id number] [id number] [id number] [address] 2021-08-15 2021-08-15 Outpatient R [facility] OPH [id number] Univers 07:52:00 10:57:00 [facility] 2021-08-15 2021-08-15 [facility] [id number] Univers 07:52:00 10:57:00 Encounter Augustine CANCINO [id number] [id number] [id number] [address] 2021-08-15 2021-08-15 Surgery [facility] [id number] Univers 09:28:00 10:08:00 Augustine CANCINO [id number] ity [facility] [id number] [id number] [facility] 020 Branch 2021-08-15 2021-08-15 Orders Doctor MADELEINE [id number] Univers 00:00:00 00:00:00 Only Unassigned, NISHANT [id number] ity [place] [facility] [id number] Cheng as [id number] [facility] [address] [place] 2020-09-08 2020-09-08 [facility] [id number] Univers 10:15:00 10:15:00 [facility] 2020-09-08 2020-09-08 [facility] [id number] Univers 09:45:09 10:00:09 Visit [facility] [id number] it y of Surgical [id number] [place] as Specialti [id number] [facility] 198 [facility] 2020-09-05 2020-09-05 [facility] [id number] Univers 09:51:09 23:59:00 Encounter Mary Cancino [id number] [id number] [id number] [facility] [address] [place] 2020-09-05 2020-09-05 Outpatient R MAREK [facility] [id number] Univers 00:00:00 00:00:00 MARY orellana [facility] 2020-08-30 2020-08-30 Orders Doctor [place] [id number] Univers 00:00:00 00:00:00 Only Unassigned, NISHANT [id number] ity [place] [facility] [id number] Cheng as [id number] [facility] [address] [place] 2020-08-25 2020-08-25 Telephone [facility] [id number] Univers 00:00:00 00:00:00 Mary Ontiveros [id number] it y of Surgical [id number] [place] Specialti [id number] Wi dical es 198 [facility] 2020-08-23 2020-08-23 [facility] [id number] Univers 15:30:00 15:30:00 MARY ity of [facility] 2020-08-23 2020-08-23 Office [facility] [id number] Univers 14:50:12 15:17:29 Visit Mary Ontiveros [id number] it y of Surgical [id number] [place] Specialti [id number] Wi dical es 198 [facility] 2020-06-24 2020-06-24 Patient [facility] [id number] Univers 00:00:00 00:00:00 Outreach Aldo PRIMARY [id number] i ty of [facility] [id number] [id number] Wi dical [address] [place] 2020-04-21 2020-04-21 Orders Doctor MADELEINE [id number] Univers 00:00:00 00:00:00 Only Unassigned, NISHANT [id number] ity of [place] [facility] [id number] Cheng as [id number] [address] 2020-03-17 2020-03-17 Orders Doctor MADELEINE [id number] Univers 00:00:00 00:00:00 Only Unassigned, NISHANT [id number] ity of [place] [facility] [id number] Cheng as [id number] [address] 2020-03-09 2020-03-09 [facility] [id number] Univers 10:48:47 23:59:00 Encounter Mary Perez [employer] [id number] ity of Surgical [id number] [place] as Specialti [id number] Wi dical es 809 [facility] 2020-03-09 2020-03-09 Office Marek [facility] [id number] [facility] 10:02:56 10:55:46 Visit Mary [facility] [id number] it y of Surgical [id number] [place] as Specialti [id number] Wi dical es 198 [facility] 2020-03-09 2020-03-09 [facility] [id number] [facility] 10:15:00 10:15:00 MARY ity [facility] 2019-11-11 2019-11-11 Orders Doctor MADELEINE [id number] 00:00:00 00:00:00 Only Unassigned, NISHANT [id number] [place] [facility] [id number] [id number] [facility] 2019-11-11 2019-11-11 Orders Doctor MADELEINE [id number] [facility] 00:00:00 00:00:00 Only Unassigned, NISHANT [id number] ity of [place] [facility] [id number] Cheng as [phone] [address] 2019-10-28 2019-10-28 Telephone [facility] [id number] [facility] 00:00:00 00:00:00 Gabby Arlene Cancino [id number] [id number] Profess[place] [phone] Wi dical nal 044 [facility] 2019-10-28 2019-10-28 Telephone [facility] [id number] 00:00:00 00:00:00 Gabby A Sipsey [id number] [place] [id number] Professio [id number] [address] 2019-10-27 2019-10-27 Outpatient Ferguson_Ro ARJUANIS [facility] [id number] [place] 04:32:00 04:32:00 bin [id number] [facility] 2019-10-27 2019-10-27 Tiago Barrett [facility] [place] - [id number] [place] 00:00:00 00:00:00 Jeremy Grey MD: [id number] Evangelical Epis endoscopy nurse [address] HOP - [facility], [facility] [address], Outreac [place], [facility] Program [id number] , Ph. 2019-09-03 2019-09-03 Outpatient Ferguson_Ro [facility] [id number] [place] 03:40:00 03:40:00 bin [id number] da [facility] 2019-09-03 2019-09-03 Outpatient Ferguson_Ro [facility] [id number] [place] 03:40:00 03:40:00 bin [id number] da [facility] 2017-04-28 2017-04-29 Inpatient nullFlavo [facility] [id number] Memoria 12:13:36 22:30:00 Romero [facility] 2017-04-28 2017-04-29 Outpatient Filipe, [id number] 112 06:13:36 16:30:00 [place] [address] 2017-04-28 2017-04-29 Inpatient nullFlavo [facility] [id number] Memoria 06:13:36 16:30:00 anastacia Romero Results Test Test Test Results Result Source Description Time Comments Comments MR LUMBAR SPINE 2020-08- HISTORY: Chronic low back University WO CONTRAST 06 pain. TECHNIQUE: [facility] 15:54:55 T2 FRFSE, T1, STIR and Br anch axial T2 FRFSE T1 studies oflumbar spines are obtained. Additional coronal T2 FRFSE study is alsoobtained. FINDINGS: Exaggerated lumbar lordosis is noted. No acute compressionfracture or aggressive lesions of the bones detected. Spinal canal appearsto be of adequate size and normal conus/cauda equina are found at the levelof T12. Visualized retroperitoneum is unremarkable for aortic aneurysm orenlarged lymph nodes or hydronephrosis. Several 15 mm or smaller size lesions in the right kidney and 16 mm lesionin the left kidney noted, consistent with bilateral simple renal cysts. L1-L2: Minimal disc bulge, thickened ligamentum flavum secondary to facetarthritis causing minimal thecal sac compression and minimal foraminalencroachment. L2-L3: Mild degenerative disc disease with prominent osteophytes along theventral vertebral margins, grade 1 retrolisthesis of L2 over L3, diffusebulging of the disc, bilateral facet arthritis with thickened ligaments andfluid in the right facet joint noted. Mild spinal stenosis has developedwith circumferential thecal sac compression. Bilateral foraminal narrowingalso noted without significant nerve root compression. L3-L4: Mild degenerative disc disease with minimal encroachment by discosteophyte complex from dorsal vertebral margins with additionalencroachment by thickened ligaments secondary to moderate facet arthritisnoted causing mild spinal stenosis with circumferential thecal saccompression. Foraminal encroachment noted mainly on the right side withoutsignificant nerve root compression. L4-L5: Grade 1 spondylolisthesis of L4 on L5, disc degeneration with vacuumphenomenon in the disc material, prominent bulging of the disc andmoderately thickened ligaments from facet arthritis is noted causingmoderate to severe spinal stenosis with thecal sac compression. Bilateralforaminal narrowing also noted, slightly more on the left side withprobable minimal left nerve root compression. L5-S1: Mild disc degeneration, minimal spondylolisthesis of L4 over L5,minimal bulging of the disc, thickened ligament secondary to facetarthritis is noted causing minimal thecal sac compression and minimalforaminal encroachment without significant nerve root compression. CONCLUSIONS:1. Exaggerated lumbar lordosis with multilevel degenerative disc diseaseand hypertrophic facet arthritis (degenerative spondylosis deformans).2. Moderate to severe spinal stenosis at L4-L5, mild spinal stenosis atL2-L3 and slightly less severe spinal stenosis L3-L4 with thecal saccompression, most severe at L4-L5.3. Multilevel foraminal encroachment, slightly more on the left side atL4-L5 where minimal left nerve root compression suspected. [facility], Radiant Results Inft User - 09/05/2020 10:56 AM CDTHISTORY: Chronic low back pain.TECHNIQUE: Sagittal T2 FRFSE, T1, STIR and axial T2 FRFSE T1 studies oflumbar spines are obtained. Additional coronal T2 FRFSE study is alsoobtained.FINDINGS: Exaggerated lumbar lordosis is noted. No acute compressionfracture or aggressive lesions of the bones detected. Spinal canal appearsto be of adequate size and normal conus/cauda equina are found at the levelof T12. Visualized retroperitoneum is unremarkable for aortic aneurysm orenlarged lymph nodes or hydronephrosis.Several 15 mm or smaller size lesions in the right kidney and 16 mm lesionin the left kidney noted, consistent with bilateral simple renal cysts.L1-L2: Minimal disc bulge, thickened ligamentum flavum secondary to facetarthritis causing minimal thecal sac compression and minimal foraminalencroachment.L2-L 3: Mild degenerative disc disease with prominent osteophytes along theventral vertebral margins, grade 1 retrolisthesis of L2 over L3, diffusebulging of the disc, bilateral facet arthritis with thickened ligaments andfluid in the right facet joint noted. Mild spinal stenosis has developedwith circumferential thecal sac compression. Bilateral foraminal narrowingalso noted without significant nerve root compression.L3-L4: Mild degenerative disc disease with minimal encroachment by discosteophyte complex from dorsal vertebral margins with additionalencroachment by thickened ligaments secondary to moderate facet arthritisnoted causing mild spinal stenosis with circumferential thecal saccompression. Foraminal encroachment noted mainly on the right side withoutsignificant nerve root compression.L4-L5: Grade 1 spondylolisthesis of L4 on L5, disc degeneration with vacuumphenomenon in the disc material, prominent bulging of the disc andmoderately thickened ligaments from facet arthritis is noted causingmoderate to severe spinal stenosis with thecal sac compression. Bilateralforaminal narrowing also noted, slightly more on the left side withprobable minimal left nerve root compression.L5-S1: Mild disc degeneration, minimal spondylolisthesis of L4 over L5,minimal bulging of the disc, thickened ligament secondary to facetarthritis is noted causing minimal thecal sac compression and minimalforaminal encroachment without significant nerve root compression.CONCLUSIONS:1. Exaggerated lumbar lordosis with multilevel degenerative disc diseaseand hypertrophic facet arthritis (degenerative spondylosis deformans).2. Moderate to severe spinal stenosis at L4-L5, mild spinal stenosis atL2-L3 and slightly less severe spinal stenosis L3-L4 with thecal saccompression, most severe at L4-L5.3. Multilevel foraminal encroachment, slightly more on the left side atL4-L5 where minimal left nerve root compression suspected. LABORATORY 2017-04-29 08:40:00 Test Item Value Reference Range Interpretation Comme nts Neutrophil % (test code = Neutrophil %) 90.4 45.0-75.0 [id number] 08:40:00 Test Item Value Reference Range Interpretation Comments Calcium Level (test code = Calcium 8.0 8.5-10.5 Level) [facility] [id number] 08:40:00 Test Item Value Reference Range Interpretation Comments Carbon Dioxide Level (test code = 25 24-32 Carbon Dioxide Level) [facility] [id number] 08:40:00 Test Item Value Reference Range Interpretation Comments eGFR (test code = eGFR) 86 [place] [id number] 08:40:00 Test Item Value Reference Range Interpretation Comments AGAP (test code = AGAP) 15.6 10.0-20.0 [place] [id number] 08:40:00 Test Item Value Reference Range Interpretation Comments Chloride Level (test code = Chloride 105 95-109 Level) [facility] CenterIixlkapMBZVYVRAUP1419-41-10 08:40:00 Test Item Value Reference Range Interpretation Comments Potassium Level (test code = Potassium 3.6 3.5-5.1 Level) [facility] CenterD[id number] 08:40:00 Test Item Value Reference Range Interpretation Comments Sodium Level (test code = Sodium Level) 142 135-145 [place] [id number] 08:40:00 Test Item Value Reference Range Interpretation Comments Creatinine (test code = Creatinine) 0.64 0.50-1.40 [facility] CenterXajjsafQUAIIWFZZQ4034-26-52 08:40:00 Test Item Value Reference Range Interpretation Comments BUN (test code = BUN) 13 7-22 [place] [id number] 08:40:00 Test Item Value Reference Range Interpretation Comments Glucose Lvl (test code = Glucose Lvl) 158 70-99 [facility] CenterIosdmniHUEGDKTCNQ5728-99-38 08:40:00 Test Item Value Reference Range Interpretation Comments Results (test code = Reported (04/29/17 2:40 Results) AM) [place] [id number] 08:40:00 Test Item Value Reference Range Interpretation Comments MPV (test code = MPV) 8.7 7.4-10.4 [facility] CenterOoyoukxOYSPZWBNAF9674-66-02 08:40:00 Test Item Value Reference Range Interpretation Comments Platelet (test code = Platelet) 163 133-450 [facility] Cent[id number] 08:40:00 Test Item Value Reference Range Interpretation Comments RDW (test code = RDW) 12.8 11.5-14.5 [facility] CenterYsoabrnRBBVKDHLSZ2757-68-41 08:40:00 Test Item Value Reference Range Interpretation Comments MCHC (test code = MCHC) 33.0 32.0-36.0 [facility] CenterQtpkqilZQUIUVJRJQ7538-87-30 08:40:00 Test Item Value Reference Range Interpretation Comments MCH (test code = MCH) 30.0 pg 27.0-31.0 [facility] CenterWzwkpafQRENOULHOK4080-10-34 08:40:00 Test Item Value Reference Range Interpretation Comments Hematocrit (test code = Hematocrit) 27.1 36.0-48.0 [facility] CenterCxbmpgsMDDARKBXBM8782-24-29 08:40:00 Test Item Value Reference Range Interpretation Comments Red Blood Cell Count (test code = Red 2.98 4.20-5.40 Blood Cell Count) [facility] CenterSqyytqeKLNURTGRZC1259-44-73 08:40:00 Test Item Value Reference Range Interpretation Comments MCV (test code = MCV) 90.8 80.0-98.0 [facility] CenterAztjpvgSPXQBJNAPH0311-21-82 08:40:00 Test Item Value Reference Range Interpretation Comments Hemoglobin (test code = Hemoglobin) 8.9 12.0-16.0 [facility] CenterDxlbayjMUJGJPDBQW5101-77-90 08:40:00 Test Item Value Reference Range Interpretation Comments White Blood Count (test code = White 13.4 3.7-10.4 Blood Count) [facility] CenterEosuahrTVGEMPOHAF6600-84-24 08:40:00 Test Item Value Reference Range Interpretation Comments Results (test code = Reported (04/29/17 2:40 Results) AM) [facility] Cent[id number] 08:40:00 Test Item Value Reference Range Interpretation Comments Monocyte # (test code = 0.6 See_Comment [Au tomated message] The Monocyte #) system which ge nerated this result tra nsmitted reference range : <=0.8. The reference r bertrand was not used to int erpret this result as normal/abnormal . [facility] CenterNjtvsccSIODMEJCLP6763-84-24 08:40:00 Test Item Value Reference Range Interpretation Comments Neutrophil # (test code = Neutrophil #) 12.1 1.5-8.1 [facility] CenterOlqzhvnWBPERDNDFL5062-97-85 08:40:00 Test Item Value Reference Range Interpretation Comments Eosinophil # (test code 0.0 See_Comment [Au tomated message] The = Eosinophil #) system which generated this result tra nsmitted reference range : <=4.0. The reference r bertrand was not used to int erpret this result as normal/abnormal . [facility] CenterMocspxtDAQPZOBGUA0614-94-09 08:40:00 Test Item Value Reference Range Interpretation Comments Lymphocyte # (test code = Lymphocyte #) 0.7 1.0-5.5 [facility] CenterVkjnkwvSGURWEPEQZ2981-10-41 08:40:00 Test Item Value Reference Range Interpretation Comments Basophil % (test code = 0.0 See_Comment [Au tomated message] The Basophil %) system which ge nerated this result tra nsmitted reference range : <=1.0. The reference r bertrand was not used to int erpret this result as normal/abnormal . [facility] CenterLtrazaoYIBONQOFOE9541-85-20 08:40:00 Test Item Value Reference Range Interpretation Comments Basophil # (test code = 0.0 See_Comment [Au tomated message] The Basophil #) system which ge nerated this result tra nsmitted reference range : <=0.2. The reference r bertrand was not used to int erpret this result as normal/abnormal . [facility] Cent[id number] 08:40:00 Test Item Value Reference Range Interpretation Comments Eosinophil % (test code 0.0 See_Comment [Au tomated message] The = Eosinophil %) system which generated this result tra nsmitted reference range : <=0.5. The reference r bertrand was not used to int erpret this result as normal/abnormal . [facility] [id number] 08:40:00 Test Item Value Reference Range Interpretation Comments Monocyte % (test code = Monocyte %) 4.7 2.0-12.0 [facility] CenterKnydiqrZSWIOSFQIX7583-86-39 08:40:00 Test Item Value Reference Range Interpretation Comments Lymphocyte % (test code = Lymphocyte %) 4.9 20.0-40.0 [facility]
[2023-01-13 12:06] LABS: Absolute Lymphocytes (CBC) 1.3 K/uL (0.7-4.9); Hematocrit 43.8 % (36.0-45.0); Lymphocytes % 13.7 % (15.3-44.8); MCV 92.6 fL (80-100); MPV 8.2 fL (7.6-11.3); Platelets 197 thou/uL (152-406); RBC Red Blood Cell Count 4.73 M/uL (3.86-4.86)
[2023-01-13] MEDS ORDERED: FOLIC ACID 5 MG/ML VIAL ONE (12:07)
[2023-01-13] MEDS ORDERED: NA CHLORIDE 0.9% 1,000 ML ONE (12:07)
[2023-01-13 12:10] LABS: Protime INR 1.53
[2023-01-13 12:19] LABS: Specific Gravity 1.014 (1.005-1.030); Urine Bacteria <20 /HPF (<20); Urine Bilirubin NEGATIVE (Negative); Urine Blood 2+ (Negative); Urine Clarity Extremely Turbid (Clear); Urine Color Light-Yellow (Yellow); Urine Glucose NEGATIVE (Negative); Urine Mucus Slight /HPF (None Seen); Urine Protein NEGATIVE (Negative); Urine Urobilinogen Normal (Normal)
[2023-01-13 12:30] LABS: Bilirubin Direct 0.4 mg/dL (0-0.2); Bilirubin Indirect, Calculated 1.5 mg/dL (0.2-0.8); Bilirubin Total 1.9 mg/dL (0.2-1.0); Magnesium 2.3 mg/dL (1.6-2.4); Potassium 3.7 mEq/L (3.5-5.1); Protein, Total 7.2 g/dL (6.4-8.2); Troponin High Sensitivity 8.7 pg/mL (<58.9)
--- NOTE | 2023-01-13 12:30 | RAD REPORT ---
EXAM DESCRIPTION: CT - Head C Spine Cap Wo Con - 01/13/2023 12:18 pm CLINICAL HISTORY: TRAUMA COMPARISON: No comparisons TECHNIQUE: Head and cervical spine CT images were obtained without IV contrast. Chest, abdomen, and pelvis CT images were obtained also without IV contrast. Multiplanar reformats were generated and rev iewed. All CT scans are performed using dose optimization technique as appropriate and may include automated exposure control or mA/KV adjustment according to patient size. FINDINGS: CT HEAD: No intracranial hemorrhage, mass effect, or edema. No evidence of acute territorial infarct. Deep hyp oattenuation and volume loss in the high left parietal region, as well as patchy areas of deep white matter and left centrum semiovale hypoattenuation. Findings are nonspecific, but probably relates to sequelae of remote ischemia and chronic small vessel ischemic changes. No midline shift or abnormal f luid collection. The ventricles are normal in caliber and configuration for age. Basal cisterns are p atent. Mastoid aircells and paranasal sinuses are clear. No acute skull fracture. CT CERVICAL SPINE: No acute cervical spine fracture or subluxation. Vertebral body heights are well maintained. Advanced degenerative changes. Sequelae of anterior hardware plating. No hyperattenuating canal hematoma. Pre vertebral and paraspinous soft tissues are unremarkable. CT CHEST: No pneumothorax, pulmonary contusion or pleural fluid collection. No mediastinal hematoma and the aor ta and pulmonary arteries are unremarkable. No chest will mass or abnormal axillary finding. No displ aced rib fracture or other significant bony finding. CT ABDOMEN/ PELVIS: No evidence of traumatic injury to solid abdominal viscera. Posterior right liver lobe fluid density lesion with marginal mineralization measuring 3 centimeter, could reflect a small cyst or hemangioma. Numerous nonobstructing right renal calculi. Gallbladder and biliary tree are unremarkable. No bowel injury or significant finding. No free air, free fluid or abnormal fat stranding. No urinary bladder abnormality. No significant bony finding. IMPRESSION: No evidence of an acute traumatic abnormality. Sequelae of remote ischemia intracranially as above. Cervical spine degenerative changes. Numerous nonobstructing right renal calculi. Other incidental abdominal findings as above.
--- NOTE | 2023-01-13 12:37 | RAD REPORT ---
EXAM DESCRIPTION: RAD - Chest Single View - 01/13/2023 12:17 pm CLINICAL HISTORY: COUGH Chest pain. COMPARISON: <Comparisons> FINDINGS: Portable technique limits examination quality. The lungs are emphysematous but grossly clear. The heart is mildly prominent in size. No displaced fr actures.Cervical hardware plate. IMPRESSION: No acute intrathoracic process suspected.
--- NOTE | 2023-01-13 12:47 | RAD REPORT ---
EXAM DESCRIPTION: CT - Head angio - 01/13/2023 12:19 pm CLINICAL HISTORY: SLURRED SPEECH COMPARISON: Head C Spine Cap Wo Con dated 01/13/2023 TECHNIQUE: Axial CT angiography images of the head was performed with multiplanar and maximum intens ity projection reconstructions. Images performed following intravenous administration of 100mL Isovue 370. All CT scans are performed using dose optimization technique as appropriate and may include automated exposure control or mA/KV adjustment according to patient size. FINDINGS: No evidence of large vessel occlusion. No evidence of aneurysm or dissection flap is detec terrell. Subtle luminal irregularities along the A2 segments, left more than right MCA branches within th e sylvian fissure, as well as the basilar artery. No flow-limiting stenosis or vascular malformation identified. Antegrade flow is seen in the vertebral arteries. Ulxw-gm-yuhpwxzj atherosclerotic calcifications vincent ng the vertebral arteries. The right vertebral artery is dominant. Diminutive right P1 segment with p atent right PIN SORTER AND BAGGER suggesting persistent configuration. The visualized dural venous sinuses are grossly patent. IMPRESSION: No evidence of large vessel occlusion or flow-limiting stenosis. Multifocal subtle luminal irregularities along the A2 segments bilaterally, left more than right MCA branches, and the basilar artery. Findings could relate to intracranial atherosclerotic disease, vasc ulitis, or RCVS. Please correlate clinically, and consider additional evaluation by digital subtracti on angiography if clinically indicated.
--- NOTE | 2023-01-13 12:50 | RAD REPORT ---
EXAM DESCRIPTION: CT - Neck Angio - 01/13/2023 12:19 pm CLINICAL HISTORY: PAIN COMPARISON: No comparisons TECHNIQUE: Axial CT angiography images of the head was performed with multiplanar and maximum intens ity projection reconstructions. Images performed following intravenous administration of 100mL Isovue 370. All CT scans are performed using dose optimization technique as appropriate and may include automated exposure control or mA/KV adjustment according to patient size. Quantification of carotid stenosis, if any, is performed according to NASCET criteria. FINDINGS: A left aortic arch is identified with normal three vessel configuration of the great vesse ls. No significant flow abnormality is seen of the common carotid bilaterally. Moderate atherosclerotic calcifications at the carotid bifurcations bilaterally. No significant steno sis is identified involving the cervical segments of both internal carotid arteries. Normal flow is seen within both vertebral arteries. IMPRESSION: No significant flow abnormality of the neck vessels is identified. Moderate atheroscler otic calcifications. CAROTID STENOSIS REFERENCE USING NASCET CRITERIA: % ICA stenosis = (1 - narrowest ICA diameter/diameter of distal cervical ICA) x 100. Mild - <50% stenosis. Moderate - 50-69% stenosis. Severe - 70-94% stenosis. Near occlusion - 95-99% stenosis. Occluded - 100% stenosis.
--- NOTE | 2023-01-13 12:52 | RAD REPORT ---
EXAM DESCRIPTION: MRI - Brain Wo Cont - 01/13/2023 12:44 pm CLINICAL HISTORY: DIZZINESS Headache, drowsiness COMPARISON: <Comparisons> TECHNIQUE: Multi-sequence, multiplanar MR imaging of the brain was performed without contrast. FINDINGS: No intracranial hemorrhage, hydrocephalus or extra-axial fluid collections.Moderate perive ntricular and deep white matter chronic microvascular ischemic changes seen. There is no gliosis left posterior frontal lobe compatible with old infarct. No edema or shift of midline structures. No find ings to suspect brain mass. 13 mm acute CVA is seen right aspect of the tracy Midline structures are normally formed. Mastoid air cells and paranasal sinuses are clear. IMPRESSION: 13 mm acute CVA is noted, nonhemorrhagic, involving the right aspect of the tracy.
[2023-01-13] MEDS ORDERED: CEFTRIAXONE 1000 MG/VIAL ONE (13:49)
--- NOTE | 2023-01-13 14:16 | ER ---
Nurse's Notes [facility] Name: Marylin Sloan Age: 82 yrs Sex: Female : 1940 Arrival Date: 01/13/2023 Time: 11:27 Bed 4 Private MD: Diagnosis: Cerebral infarction, unspecified-acute 13 mm ischemic right ANDRÉS;group home (current) use of anticoagulants;UTI/ Urinary tract infection, site not specified;Dysphasia and aphasia Presentation: 01/13 11:33 Chief complaint: EMS states: toned out to patient home. Family/Friends noticed patient ld1 had slurred speech and left sided facial droop. Pt does not think anything is wrong, states "I feel fine but I started having difficulty walking last night around 7 or 8pm." Pt denies pain. Coronavirus screen: At this time, the client does not indicate any symptoms associated with coronavirus-19. Ebola Screen: No symptoms or risks identified at this time. No acute neurological deficit is noted. The patients blood glucose was checked prior to arriving to the hospital and was found to be hyperglycemic. Initial Sepsis Screen: Does the patient meet any 2 criteria? No. Patient's initial sepsis screen is negative. Does the patient have a suspected source of infection? No. Patient's initial sepsis screen is negative. Risk Assessment: Do you want to hurt yourself or someone else? Patient reports no desire to harm self or others. Onset of symptoms was January 13, 2023. 11:33 Method Of Arrival: [facility] ld1 11:33 Acuity: SHERINE 2 ld1 Triage Assessment: 11:35 The onset of the patients symptoms was January 12, 2023 at 19:00. General: Appears in no ld1 apparent distress. comfortable, Behavior is calm, cooperative, appropriate for age. Pain: Denies pain. EENT: No signs and/or symptoms were reported regarding the EENT system. Neuro: Level of Consciousness is awake, alert, obeys commands, Oriented to person, place, time, situation, Bus Inspector are equal bilaterally Speech is slurred, Facial droop on left. Neuro: Reports trouble walking. Cardiovascular: Capillary refill < 3 seconds Patient's skin is warm and dry. Respiratory: Airway is patent Respiratory effort is even, unlabored. GI: Abdomen is flat, non-distended. : No signs and/or symptoms were reported regarding the genitourinary system. Derm: No signs and/or symptoms reported regarding the dermatologic system. Musculoskeletal: No signs and/or symptoms reported regarding the musculoskeletal system. Historical: - Allergies: 11:35 PENICILLINS; ld1 11:35 Morphine; ld1 16:44 Lisinopril; ld1 - PMHx: 11:35 COPD; CVA; High Cholesterol; Hypertension; ld1 - Immunization history:: Adult Immunizations up to date, Client reports receiving the 2nd dose of the Covid vaccine. - Social history:: Smoking status: Patient denies any tobacco usage or history of. Patient/guardian denies using alcohol. Screenin:[facility] ED Fall Risk Assessment (Adult) History of falling in the last 3 months, ld1 including since admission No falls in past 3 months (0 pts). Abuse screen: Denies threats or abuse. Denies injuries from another. Nutritional screening: No deficits noted. Tuberculosis screening: No symptoms or risk factors identified. Assessment: 11:37 VAN Scoring: Arm Drift: Patients demonstrates NO arm weakness. Patient is VAN Negative. ld1 Reassessment: See triage assessment. 13:13 Reassessment: Patient appears in no apparent distress at this time. No changes from ld1 previously documented assessment. Patient and/or family updated on plan of care and expected duration. Pain level reassessed. Patient is alert, oriented x 3, equal unlabored respirations, skin warm/dry/pink. Patient denies pain at this time. Vital Signs: 11:33 BP 181 / 74; Pulse 66; Resp 18; Temp 98.1(O); Pulse Ox 99% on R/A; Weight 83.91 kg; ld1 Height 5 ft. 4 in. ; Pain 0/10; 13:13 BP 177 / 89; Pulse 69; Resp 18; Pulse Ox 99% on R/A; ld1 14:02 BP 171 / 65; Pulse 62; Resp 18; Pulse Ox 100% on R/A; ld1 16:25 BP 165 / 81; Pulse 68; Resp 18; Pulse Ox 98% on R/A; ld1 11:33 Body Mass Index 31.75 (83.91 kg, 162.56 cm) ld1 11:33 Pain Scale: Adult ld1 NIH Stroke Scale Scores: 11:37 NIHSS Score: 2 ld1 14:12 NIHSS Score: 0 [facility] ED Course: 11:32 Patient arrived in ED. ld1 11:35 Triage completed. ld1 11:35 Arm band placed on right wrist. ld1 11:37 Pasquale Braun MD is Attending Physician. mil 11:37 Patient has correct armband on for positive identification. Placed in gown. Bed in low ld1 position. Call light in reach. Side rails up X2. hospital monitor on. Pulse ox on. NIBP on. Door closed. Noise minimized. Warm blanket given. 11:37 No provider procedures requiring assistance completed. Inserted saline lock: 20 gauge ld1 in left forearm, using aseptic technique. Blood collected. 11:53 Pattie Gorman, PANFILO is Primary Nurse. ld1 12:06 Urinalysis w/ reflexes Sent. ld1 12:19 XRAY Chest (1 view) In Process Unspecified. EDMS 12:20 CT Traumagram (Head C Spine CAP wo con) In Process Unspecified. EDMS 12:20 CT Head Angio In Process Unspecified. EDMS 12:21 CT Neck Angio In Process Unspecified. EDMS 12:34 Brain Wo Cont In Process Unspecified. EDMS 14:14 Kings Puri is Hospitalizing Provider. mil 16:46 Patient admitted, IV remains in place. ld1 Administered Medications: 12:01 Drug: NS 0.9% IV 1000 ml Route: IV; Rate: 1 bolus; Site: left antecubital; ld1 12:01 Drug: foLIC Acid IVPB 1 mg Route: IVPB; Site: left antecubital; ld1 13:59 Drug: Rocephin IV 1 grams Route: IV; Rate: per protocol; Site: left antecubital; ld1 Medication: 11:37 VIS not applicable for this client. ld1 Outcome: 14:15 Decision to Hospitalize by Provider. mil 16:46 Admitted to Med/surg accompanied by tech, via wheelchair, room 212, Report called to leida Mora RN 16:46 Condition: stable 16:46 Instructed on the need for admit. 17:05 Patient left the ED. ld1 NIH Stroke Scale - NIH Stroke Score Date: 01/13/2023 Time: 11:37 Total Score = 2 10. Dysarthria (speech clarity - read or repeat words) - 1(Mild to Moderate) 11. Extinction and Inattention (visual/tactile/auditory/spatial/personal) - 0(No abnormality) 1a. Level of Consciousness (LOC) - 0(Alert) 1b. Level of Consciousness (LOC) (Month \\T\\ Age) - 0(Both) 1c. LOC Commands (Open \\T\\ Closes Eyes/Quilting Machine Operator) - 0(Both) 2. Best Gaze (Lateral Gaze Paresis) - 0(Normal) 3. Visual Field Loss - 0(No visual loss) 4. Facial Palsy - 1(Minor Paralysis) 5a. Left Arm: Motor (10-second hold) - 0(No drift) 5b. Right Arm: Motor (10-second hold) - 0(No drift) 6a. Left Leg: Motor (5-second hold - always test supine) - 0(No drift) 6b. Right Leg: Motor (5-second hold - always test supine) - 0(No drift) 7. Limb Ataxia (finger/nose \\T\\ heel/maher - test with eyes open) - 0(Absent) 8. Sensory Loss (pinprick arms/legs/face) - 0(Normal) 9. Best Language: Aphasia (description/naming/reading) - 0(No aphasia) Initials: ld1 NIH Stroke Scale - NIH Stroke Score Date: 01/13/2023 Time: 14:12 Total Score = 0 10. Dysarthria (speech clarity - read or repeat words) - 0(Normal) 11. Extinction and Inattention (visual/tactile/auditory/spatial/personal) - 0(No abnormality) 1a. Level of Consciousness (LOC) - 0(Alert) 1b. Level of Consciousness (LOC) (Month \\T\\ Age) - 0(Both) 1c. LOC Commands (Open \\T\\ Closes Eyes/Quilting Machine Operator) - 0(Both) 2. Best Gaze (Lateral Gaze Paresis) - 0(Normal) 3. Visual Field Loss - 0(No visual loss) 4. Facial Palsy - 0(Normal) 5a. Left Arm: Motor (10-second hold) - 0(No drift) 5b. Right Arm: Motor (10-second hold) - 0(No drift) 6a. Left Leg: Motor (5-second hold - always test supine) - 0(No drift) 6b. Right Leg: Motor (5-second hold - always test supine) - 0(No drift) 7. Limb Ataxia (finger/nose \\T\\ heel/maher - test with eyes open) - 0(Absent) 8. Sensory Loss (pinprick arms/legs/face) - 0(Normal) 9. Best Language: Aphasia (description/naming/reading) - 0(No aphasia) Initials: mil Signatures: Dispatcher [employer] Pasquale Shanks MD MD cha Sims, Lauren RN RN ld1
--- NOTE | 2023-01-13 14:16 | EDPHYS ---
Physician Documentation [facility] Name: Marylin Sloan Age: 82 yrs Sex: Female : 1940 Arrival Date: 01/13/2023 Time: 11:27 Bed 4 Private MD: ED Physician Pasquale Braun HPI: 01/13 14:05 This 82 yrs old Female presents to ER via EMS with complaints of Slurred mil Speech, Facial Droop, Trouble Walking. 14:05 The patient presents to the emergency department with weakness of the right lower mil extremity, that is moderate, a speech or higher order brain function problem, aphasia, difficult walking, paresthesias of the right lower extremity, right upper extremity. Onset: The symptoms/episode began/occurred yesterday. Context: occurred at an unknown location. Associated signs and symptoms: Pertinent positives: dizziness. Severity of symptoms: At their worst the symptoms were mild in the emergency department the symptoms are unchanged. Patient's baseline: Neuro: alert and fully oriented. Current symptoms: Currently, the patient is not experiencing any symptoms, the patient feels back to baseline. The patient has not experienced similar symptoms in the past. Historical: - Allergies: 11:35 PENICILLINS; ld1 11:35 Morphine; ld1 16:44 Lisinopril; ld1 - PMHx: 11:35 COPD; CVA; High Cholesterol; Hypertension; ld1 - Immunization history:: Adult Immunizations up to date, Client reports receiving the 2nd dose of the Covid vaccine. - Social history:: Smoking status: Patient denies any tobacco usage or history of. Patient/guardian denies using alcohol. ROS: 14:09 Constitutional: Negative for fever, chills, and weight loss, Eyes: Negative for injury, mil pain, redness, and discharge, ENT: Negative for injury, pain, and discharge, Neck: Negative for injury, pain, and swelling, Cardiovascular: Negative for chest pain, palpitations, and edema, Respiratory: Negative for shortness of breath, cough, wheezing, and pleuritic chest pain, Abdomen/GI: Negative for abdominal pain, nausea, vomiting, diarrhea, and constipation, Back: Negative for injury and pain, : Negative for injury, bleeding, discharge, and swelling, MS/Extremity: Negative for injury and deformity, Skin: Negative for injury, rash, and discoloration, Psych: Negative for depression, anxiety, suicide ideation, homicidal ideation, and hallucinations, Allergy/Immunology: Negative for hives, rash, and allergies, Endocrine: Negative for neck swelling, polydipsia, polyuria, polyphagia, and marked weight changes, Hematologic/Lymphatic: Negative for swollen nodes, abnormal bleeding, and unusual bruising. 14:09 Neuro: Positive for dizziness, speech changes, weakness, of the right leg. Exam: 14:09 Radiologist reports: no acute findings, no lvo mil 14:12 Constitutional: This is a well developed, well nourished patient who is awake, alert, mil and in no acute distress. Head/Face: Normocephalic, atraumatic. Eyes: Pupils equal round and reactive to light, extra-ocular motions intact. Lids and lashes normal. Conjunctiva and sclera are non-icteric and not injected. Cornea within normal limits. Periorbital areas with no swelling, redness, or edema. ENT: Nares patent. No nasal discharge, no septal abnormalities noted. Tympanic membranes are normal and external auditory canals are clear. Oropharynx with no redness, swelling, or masses, exudates, or evidence of obstruction, uvula midline. Mucous membranes moist. Neck: Trachea midline, no thyromegaly or masses palpated, and no cervical lymphadenopathy. Supple, full range of motion without nuchal rigidity, or vertebral point tenderness. No Meningismus. Chest/axilla: Normal chest wall appearance and motion. Nontender with no deformity. No lesions are appreciated. Cardiovascular: Regular rate and rhythm with a normal S1 and S2. No gallops, murmurs, or rubs. Normal PMI, no JVD. No pulse deficits. Respiratory: Lungs have equal breath sounds bilaterally, clear to auscultation and percussion. No rales, rhonchi or wheezes noted. No increased work of breathing, no retractions or nasal flaring. Abdomen/GI: Soft, non-tender, with normal bowel sounds. No distension or tympany. No guarding or rebound. No evidence of tenderness throughout. Back: No spinal tenderness. No costovertebral tenderness. Full range of motion. Female : Normal external genitalia. Skin: Warm, dry with normal turgor. Normal color with no rashes, no lesions, and no evidence of cellulitis. MS/ Extremity: Pulses equal, no cyanosis. Neurovascular intact. Full, normal range of motion. Neuro: Awake and alert, GCS 15, oriented to person, place, time, and situation. Cranial nerves II-XII grossly intact. Motor strength 5/5 in all extremities. Sensory grossly intact. Cerebellar exam normal. Normal gait. Psych: Awake, alert, with orientation to person, place and time. Behavior, mood, and affect are within normal limits. Vital Signs: 11:33 BP 181 / 74; Pulse 66; Resp 18; Temp 98.1(O); Pulse Ox 99% on R/A; Weight 83.91 kg; ld1 Height 5 ft. 4 in. ; Pain 0/10; 13:13 BP 177 / 89; Pulse 69; Resp 18; Pulse Ox 99% on R/A; ld1 14:02 BP 171 / 65; Pulse 62; Resp 18; Pulse Ox 100% on R/A; ld1 16:25 BP 165 / 81; Pulse 68; Resp 18; Pulse Ox 98% on R/A; ld1 11:33 Body Mass Index 31.75 (83.91 kg, 162.56 cm) ld1 11:33 Pain Scale: Adult ld1 NIH Stroke Scale Scores: 11:37 NIHSS Score: 2 ld1 14:12 NIHSS Score: 0 mil MDM: 11:37 Patient medically screened. mil 14:11 Differential diagnosis: CVA, TIA, Dementia, paralysis, metabolic disorder, drug mil effects. Differential diagnosis: cardiac arrhythmia, CVA, generalized weakness, idiopathic dizziness, near-syncope, sepsis, syncope, TIA, vertigo. Data reviewed: vital signs, nurses notes, EMS record, lab test result(s), EKG, radiologic studies, CT scan, MRI, plain films. Consideration of Admission/Observation Patient was admitted/placed on observation. Escalation of care including admission/observation considered. I considered the following discharge prescriptions or medication management in the emergency department Medications were administered in the Emergency Department. See MAR. Independent interpretation of the following test(s) in the Emergency Department EKG: See my EKG interpretation above. Test considered but Not performed: EKG: . Historians other than the Patient: Daughter/Son: daughter and othrer family members. Care significantly affected by the following chronic conditions: Hypertension, Chronic Obstructive Pulmonary Disease, cva, high chlesterol. 14:13 ED course: not a TNK patient, 24 hours old, on xarelto 20 mg daily. [facility] 01/13 11:49 Order name: Basic Metabolic Panel; Complete Time: 12:53 [facility] 01/13 11:49 Order name: CBC with Diff; Complete Time: 12:53 [facility] 01/13 11:49 Order name: LFT's; Complete Time: 12:53 [facility] 01/13 11:49 Order name: Magnesium; Complete Time: 12:53 [facility] 01/13 11:49 Order name: NT PRO-BNP; Complete Time: 12:53 [facility] 01/13 11:49 Order name: PT-INR; Complete Time: 12:53 [facility] 01/13 11:49 Order name: Troponin HS; Complete Time: 12:53 [facility] 01/13 11:49 Order name: Urinalysis w/ reflexes; Complete Time: 12:53 [facility] 01/13 11:53 Order name: Glucose, Ancillary Testing; Complete Time: 12:53 [facility] 01/13 13:31 Order name: Lipid Profile [facility] 01/13 15:43 Order name: CREATININE WHOLE BLOOD [facility] 01/13 11:49 Order name: XRAY Chest (1 view); Complete Time: 12:53 [facility] 01/13 11:49 Order name: CT Traumagram (Head C Spine CAP wo con); Complete Time: 12:53 [facility] 01/13 11:49 Order name: CT Head Angio; Complete Time: 12:53 [facility] 01/13 11:49 Order name: CT Neck Angio; Complete Time: 12:53 [facility] 01/13 12:34 Order name: Brain Wo Cont; Complete Time: 13:10 [facility] 01/13 14:18 Order name: Echo w/ Doppler [facility] 01/13 11:49 Order name: EKG; Complete Time: 11:50 [facility] 01/13 11:49 Order name: Cardiac monitoring; Complete Time: 11:53 [facility] 01/13 11:49 Order name: EKG - Nurse/Tech; Complete Time: 11:53 [facility] 01/13 11:49 Order name: IV Saline Lock; Complete Time: 11:53 [facility] 01/13 11:49 Order name: Labs collected and sent; Complete Time: 11:53 [facility] 01/13 11:49 Order name: O2 Per Protocol; Complete Time: 11:53 [facility] 01/13 11:49 Order name: O2 Sat Monitoring; Complete Time: 11:53 mil Administered Medications: 12:01 Drug: NS 0.9% IV 1000 ml Route: IV; Rate: 1 bolus; Site: left antecubital; ld1 12:01 Drug: foLIC Acid IVPB 1 mg Route: IVPB; Site: left antecubital; ld1 13:59 Drug: Rocephin IV 1 grams Route: IV; Rate: per protocol; Site: left antecubital; ld1 Disposition Summary: 01/13/23 14:15 Hospitalization Ordered Hospitalization Status: Inpatient Admission mil Provider: Kings Puri cha Location: Telemetry/MedSurg (Inpatient) mil Condition: Fair mil Problem: new mil Symptoms: have improved mil Bed/Room Type: Standard [facility] Room Assignment: 212(01/13/23 16:39) bd Diagnosis - Cerebral infarction, unspecified - acute 13 mm ischemic right ANDRÉS 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 Dysarthria (speech clarity - read or repeat words) - 1(Mild to Moderate) 11. Extinction and Inattention (visual/tactile/auditory/spatial/personal) - 0(No abnormality) 1a. Level of Consciousness (LOC) - 0(Alert) 1b. Level of Consciousness (LOC) (Month \T\ Age) - 0(Both) 1c. LOC Commands (Open \T\ Closes Eyes/Spot Checker) - 0(Both) 2. Best Gaze (Lateral Gaze Paresis) - 0(Normal) 3. Visual Field Loss - 0(No visual loss) 4. Facial Palsy - 1(Minor Paralysis) 5a. Left Arm: Motor (10-second hold) - 0(No drift) 5b. Right Arm: Motor (10-second hold) - 0(No drift) 6a. Left Leg: Motor (5-second hold - always test supine) - 0(No drift) 6b. Right Leg: Motor (5-second hold - always test supine) - 0(No drift) 7. Limb Ataxia (finger/nose \T\ heel/maher - test with eyes open) - 0(Absent) 8. Sensory Loss (pinprick arms/legs/face) - 0(Normal) 9. Best Language: Aphasia (description/naming/reading) - 0(No aphasia) Initials: ld1 NIH Stroke Scale - NIH Stroke Score Date: 01/13/2023 Time: 14:12 Total Score = 0 10. Dysarthria (speech clarity - read or repeat words) - 0(Normal) 11. Extinction and Inattention (visual/tactile/auditory/spatial/personal) - 0(No abnormality) 1a. Level of Consciousness (LOC) - 0(Alert) 1b. Level of Consciousness (LOC) (Month \T\ Age) - 0(Both) 1c. LOC Commands (Open \T\ Closes Eyes/Spot Checker) - 0(Both) 2. Best Gaze (Lateral Gaze Paresis) - 0(Normal) 3. Visual Field Loss - 0(No visual loss) 4. Facial Palsy - 0(Normal) 5a. Left Arm: Motor (10-second hold) - 0(No drift) 5b. Right Arm: Motor (10-second hold) - 0(No drift) 6a. Left Leg: Motor (5-second hold - always test supine) - 0(No drift) 6b. Right Leg: Motor (5-second hold - always test supine) - 0(No drift) 7. Limb Ataxia (finger/nose \T\ heel/maher - test with eyes open) - 0(Absent) 8. Sensory Loss (pinprick arms/legs/face) - 0(Normal) 9. Best Language: Aphasia (description/naming/reading) - 0(No aphasia) Initials: mil Signatures: Dispatcher [employer] EDMS Phoebe Tsang Corey, MD MD cha Sims, Marcus, DO DO ms3 Pattie Gorman, RN RN ld1 Corrections: (The following items were deleted from the chart) 12:34 11:50 MR STROKE PROTOCOL+MRI.RAD.BRZ ordered. EDMS EDMS 16:39 14:15 mil pérez
[2023-01-13] MEDS ORDERED: ACETAMINOPHEN 325 MG TABLET PO PRN (15:54)
[2023-01-13] MEDS ORDERED: TRAMADOL HCL 50 MG TAB PO PRN (15:54)
[2023-01-13] MEDS ORDERED: ONDANSETRON 4 MG/2 ML VIAL IV PRN (15:59)
--- NOTE | 2023-01-13 16:02 | P.HP ---
Certification for Inpatient Patient admitted to: Inpatient With expected LOS: >2 Midnights Patient will require the following post-hospital care: None Practitioner: I am a practitioner with admitting privileges, knowledge of patient current condition, hospital course, and medical plan of care. Services: Services provided to patient in accordance with Admission requirements found in Title 42 Section 412.3 of the Code of Federal Regulations Patient History Date of Service: 01/13/23 Reason for admission: Fall. History of Present Illness: Patient is an 82-year-old female with a past medical history significant for COPD, CVA, HLD, hypertension who presents with complaint of fall. Patient reported that he had a stroke in the past with deficit of right-sided weakness. Patient reported that she was unable to get up when she fell. Patient denies hitting her head or losing consciousness. Patient called her family and patient was assisted by neighbors to a sitting position. When family arrived patient was noted to have left-sided droop And slurred speech. Patient reported associated signs or symptoms of poor gait. Patient denies any other signs or symptoms. Symptoms are aggravated or relieved by nothing. Patient was brought to the hospital for medical evaluation. Allergies Penicillins Allergy (Unknown, Verified 05/31/16 13:56) Hives/Rash Home Medications: Atorvastatin Calcium [Lipitor] 80 mg PO BEDTIME 05/31/16 Colesevelam [Welchol*] 625 mg PO DAILY 10/20/16 Cetirizine HCl [Zyrtec*] 10 mg PO DAILY #30 10/22/16 Epinephrine [Epipen] 0.3 mg [facility] PRN #3 auto.injct 10/22/16 Rivaroxaban [Xarelto] 20 mg PO DAILY #30 tab 10/22/16 Sotalol HCl [Betapace*] 80 mg PO BID 6AM 6PM #60 tab 10/22/16 Cranberry Fruit Extract [Cranberry] 425 mg PO BEDTIME 01/13/23 Diltiazem HCl [Diltiazem ER] 1 tab PO DAILY 01/13/23 Irbesartan 1 tab PO DAILY 01/13/23 Magnesium Oxide [Magnesium] 1 tab PO BID 01/13/23 Melatonin 1 tab PO BEDTIME PRN 01/13/23 Ubidecarenone [Co Q-10] 1 cap PO BEDTIME 01/13/23 - Past Medical/Surgical History Diabetic: No -: Nephrolithiasis -: COPD -: Hyperlipidemia -: CVA, June 2016 -: Arthritis -: Hypertension -: Coronary artery disease -: Irritable bowel syndrome -: Carpal tunnel syndrome -: Hysterectomy -: Left knee replacement -: Cervical fusion -: Colonoscopy -: Appendectomy -: Carpal tunnel surgery Psychosocial/ Personal History: She is a . She lives by herself. She has 3 children. - Family History Mother -: Hypertension, Diabetes Notes: at 94 of natural causes Father Notes: " at 42 with Kidney disease, fell on a rig and injured his kidney and it started failing." - Social History Smoking Status: Never smoker Alcohol use: No CD- Drugs: No Caffeine use: Yes Place of Residence: Home Review of Systems General: Weakness Eyes: Other (Left facial droop), Unremarkable ENT: Unremarkable Respiratory: Unremarkable Cardiovascular: Unremarkable Gastrointestinal: Unremarkable Genitourinary: Unremarkable Musculoskeletal: Unremarkable Integumentary: Unremarkable Neurological: Weakness Lymphatics: Unremarkable Physical Examination - Physical Exam General: Alert, In no apparent distress, Oriented x3, Cooperative HEENT: Atraumatic, PERRLA, Mucous membr. moist/pink, EOMI, Sclerae nonicteric Neck: Supple, 2+ carotid pulse no bruit, No LAD, Without JVD or thyroid abnormality Respiratory: Normal air movement Cardiovascular: No edema, Normal S1 S2, Irregular heart rate/rhythm Capillary refill: <2 Seconds Gastrointestinal: Normal bowel sounds, Soft and benign, Non-distended, No tenderness Musculoskeletal: No clubbing, No swelling, No tenderness Integumentary: No rashes, No significant lesion Neurological: Normal speech, Normal tone, Normal affect, Abnormal gait Lymphatics: No axilla or inguinal lymphadenopathy - Studies Laboratory Data (last 24 hrs) 01/13/23 01/13/23 01/13/23 11:53 11:53 11:53 WBC 9.60 Hgb 14.3 Hct 43.8 Plt Count 197 PT 16.8 H INR 1.53 Sodium Potassium BUN Creatinine Glucose Magnesium Total Bilirubin AST ALT Alkaline Phosphatase Triglycerides 199 H Cholesterol 133 HDL Cholesterol 65 H Cholesterol/HDL Ratio 2.05 01/13/23 11:53 WBC Hgb Hct Plt Count PT INR Sodium 141 Potassium 3.7 BUN 19 H Creatinine 0.75 Glucose 118 H Magnesium 2.3 Total Bilirubin 1.9 H AST 27 ALT 46 Alkaline Phosphatase 82 Triglycerides Cholesterol HDL Cholesterol Cholesterol/HDL Ratio Assessment and Plan - Plan --CVA. MRi Brain indicates 13 mm acute CVA is noted, nonhemorrhagic, involving the right aspect of the tracy. Neurologist consulted. Continue aspirin, statin and Xarelto. PT eval and treat. Will await further recommendation from neurologist. --Hyperlipidemia. Continue statin and WelChol --Atrial fibrillation. Continue Xarelto. --History of CAD\\CVA with right-sided deficits. Continue aspirin, Xarelto and statin. --Osteoarthritis. We will manage pain with current pain medication regimen. --Hypertension. We will allow for permissive hypertension pending evaluation by neurologist. We will continue to monitor blood pressure levels. --COPD. Stable. Continue home medication. --GERD. Continue home medication. -- Bacteriuria. Patient given IV antibiotics in the ER. Continue antibiotics. Urine cultures pending.-Antibiotics will be DC'd if urine culture is negative. -- Insomnia. Continue melatonin. -- DVT prophylaxis with Xarelto. Discharge Plan: Home - Advance Directives Does patient have a Living Will: No Does patient have a Durable POA for Healthcare: No - Code Status/Comfort Care Code Status Assessed: Yes Physician Review: Patient Assessed, Agree with Above Assessment and Plan Critical Care: No
[2023-01-13 17:16] VITALS: BMI 31.7
[2023-01-13 17:41] LABS: Magnesium 2.2 mg/dL (1.6-2.4); Thyroid Stimulating Hormone 1.37 uIU/mL (0.358-3.740)
[2023-01-13] MEDS: RIVAROXABAN 20 MG TABLET PO SCH (17:57)
[2023-01-13] MEDS: ATORVASTATIN 80 MG TAB PO SCH (20:31)
[2023-01-13] MEDS: COENZYME Q10- 200 MG CAP PO SCH (20:32)
[2023-01-13] MEDS: CRANBERRY FRUIT EXTRACT 425 MG PO SCH (21:56)
[2023-01-13] MEDS: Magnesium Oxide [Magnesium] 250 MG Tablet PO SCH (21:56)
[2023-01-14] MEDS: MELATONIN 5 MG TABLET PO PRN ×2 (02:39→20:22)
[2023-01-14 05:06] LABS: Potassium 3.5 mEq/L (3.5-5.1)
[2023-01-14] MEDS: CETIRIZINE HCL 5 MG TABLET PO SCH (08:25)
[2023-01-14] MEDS: FOLIC ACID 1 MG TABLET PO SCH (08:25)
[2023-01-14] MEDS: Magnesium Oxide [Magnesium] 250 MG Tablet PO SCH ×2 (08:26→20:18)
[2023-01-14] MEDS: COLESEVELAM 625 MG PO SCH (08:32)
[2023-01-14] MEDS: DILTIAZEM HCL 180 MG PO SCH (08:32)
[2023-01-14] MEDS ORDERED: POTASSIUM CL SA 10 MEQ TAB PO ONE (09:00)
[2023-01-14] MEDS ORDERED: ASPIRIN EC 81 MG TAB PO SCH (09:00)
[2023-01-14] MEDS ORDERED: CEFTRIAXONE 1,000 MG in NA CHLORIDE 0.9% 50 ML IVPB SCH (09:00)
--- NOTE | 2023-01-14 16:41 | P.PN ---
Subjective Date of Service: 01/14/23 Chief Complaint: Fall. No acute events overnight. She reports that her symptoms have improved significantly. She endorses left upper extremity weakness. She denies any chest pain, palpitations, headaches, dizziness, or shortness of breath. Review of Systems 10-point ROS is otherwise unremarkable General: Weakness (LUE) Physical Examination - Vital Signs Temperature: 97.5 F Blood Pressure: 153/83 Pulse: 54 Respirations: 16 Pulse Ox (%): 96 - Physical Exam General: Alert, In no apparent distress, Oriented x3 HEENT: Atraumatic, Mucous membr. moist/pink, Sclerae nonicteric Neck: JVD not distended Respiratory: Clear to auscultation bilaterally, Normal air movement Cardiovascular: No edema, Regular rate/rhythm, Normal S1 S2, No gallops, No rubs, No murmurs Gastrointestinal: Normal bowel sounds, Soft and benign, Non-distended, No tenderness, No rebound, No guarding Musculoskeletal: No clubbing Integumentary: No rashes Neurological: Normal speech, Sensation intact, Normal affect, Abnormal strength (4/5 LUE strength. 5/5 RUE strength. 5/5 BLE strength.), Abnormal cranial nerve function (slight left lower facial droop) Assessment And Plan - Plan NIH Stroke Scale 1a. Level of consciousness: 0 - Alert; keenly responsive 1b. LOC questions: 0 - Both questions right 1c. LOC commands: 0 - Performs both tasks 2. Best Gaze: 0 - Normal 3. Visual: 0 - No visual loss 4. Facial Palsy: 1- minor paralysis 5a. Motor left arm: 1 - Drift, but doesn't hit bed 5b. Motor right arm: 0 - No drift for 10 seconds 6a. Motor left le - No drift for 5 seconds 6b. Motor right le - No drift for 5 seconds 7. Limb ataxia: 0 - No ataxia 8. Sensory: 0 - Normal; no sensory loss 9. Best Language: 0 - Normal; no aphasia 10. Dysarthria: 0 - Normal 11. Extinction and Inattention: 0 - No abnormality 12. Distal motor function: 0 - No abnormality Total Score: 2 # Acute Right Pontine Cerebrovascular Accident # History of Cerebrovascular Accident (2016) # Chronic Atrial Fibrillation # Coronary Artery Disease # Hypertension # Hyperlipidemia - Consulted Neurology and spoke with Dr. Talbert - recommendations appreciated - Recommended against aspirin given prior bleeding - Advised atorvastatin, folic acid, rivaroxaban - NIHSS = 2 - Allow permissive hypertension for tonight - q4hr neurochecks - Radiology: - CT head/cervical spine/chest/abdomen/pelvis = "no evidence of an acute traumatic abnormality. Sequelae of remote ischemia intracranially as above. Cervical spine degenerative changes. Numerous nonobstructing right renal calculi." - CT head angiogram = "no evidence of large vessel occlusion or flow-limiting stenosis. Multifocal subtle luminal irregularities along the A2 segments bilaterally, left more than right MCA branches, and the basilar artery. Findings could relate to intracranial atherosclerotic disease, vasculitis, or RCVS. Please correlate clinically, and consider additional evaluation by digital subtraction angiography if clinically indicated." - CT neck angiogram = "no significant flow abnormality of the neck vessels is identified. Moderate atherosclerotic calcifications - MRI brain = "13 mm acute CVA is noted, nonhemorrhagic, involving the right aspect of the tracy." - Ordered transthoracic echocardiogram - PT/OT evaluation requested - Risk profile: - Hgb A1c = 5.5 % - Lipid Panel = TC 133, LDL 28, HDL 65, TG 199 - TSH = 1.37 # Chronic Obstructive Pulmonary Disease - No evidence of exacerbation - Continue home medications # Gastroesophageal Reflux Disease - Continue home medication # Posterior Right Liver Lobe Fluid Collection (3 cm) Per Radiology, seems to be a cyst vs hemangioma. She has not fever, chills, or pain to suggest abscess. - Plan for outpatient follow-up Deep Portillo M.D.
[2023-01-14] MEDS: RIVAROXABAN 20 MG TABLET PO SCH (16:53)
--- NOTE | 2023-01-14 17:05 | EKG ---
Test Date: 2023-01-13 Test Time: 11:36:35 Purchasing And Claims Supervisor: GILMAR MEASUREMENT RESULTS: Intervals: Rate: 62 IN: 206 QRSD: 86 QT: 492 QTc: 499 Benjamin: P: 72 IN: 206 QRS: 7 T: 54 INTERPRETIVE STATEMENTS: Normal sinus rhythm Prolonged QT Abnormal ECG Compared to ECG 10/21/2016 06:33:16 Sinus arrhythmia no longer present Electronically Signed On 01-14-23 17:03:04 CDT by Cedrick Bran
[2023-01-14] MEDS: CRANBERRY FRUIT EXTRACT 425 MG PO SCH (20:18)
[2023-01-14] MEDS: ATORVASTATIN 80 MG TAB PO SCH (20:20)
[2023-01-14] MEDS: COENZYME Q10- 200 MG CAP PO SCH (20:20)
--- NOTE | 2023-01-15 01:53 | CON ---
Reason For Consultation: Consultation called because of stroke. History Of Present Illness: Ms. Sloan is an 82-year-old patient with multiple medical problems inclu ding prior stroke with good recovery, dyslipidemia, COPD, and hypertension, who came to [facility] on 01/13/2023 after she fell and was unable to get back up without help. The patient denied h itting her head or losing consciousness. The patient was assisted by a neighbor to a sitting positio n and family noted, when they arrived, left-sided weakness and slurred speech. She was unable again to ambulate. At [facility], she was evaluated by CT scan of the head and subsequently the b rain MRI. She did not arrive at any time for any intervention such as acute thrombolysis. The MRI d id show a 13 mm acute stroke in the right aspect of the tracy. Her CT angiogram of her head done on 0 01/13/2023 showed no evidence of large vessel occlusion or flow-limiting stenosis. CT angiogram of he r neck also done on 01/13/2023 showed moderate atherosclerotic changes in the neck without significan t flow abnormalities identified. Trauma series of her head, cervical spine, chest, abdomen, and pelv is also on 01/13/2023 showed no significant bony findings. No evidence of acute traumatic abnormalit y. There is sequelae of remote ischemia noted, which was an area of hypoattenuation in the left socorro etal region. There was patchy areas of deep white matter and left centrum semiovale hypoattenuation and these were remote small vessel disease and small ischemic strokes, which the patient as noted pre viously. Laboratory studies showed a complete blood count with differential was normal. INR 1.53. Her basic metabolic panel remarkable for slightly elevated chloride of 100, BUN elevated to 19, creat inine although was normal. Calcium normal. Magnesium normal. Liver function studies showed elevate d total bilirubin of 1.9, indirect bilirubin elevated at 1.5. Her triglycerides elevated to 199. To mela cholesterol 133, LDL cholesterol 28, HDL cholesterol 65 with a cholesterol to HDL ratio of 2.5, w hich is excellent. TSH normal at 1.37, free T4 normal at 1.04. Her urinalysis did show extreme turb idity, blood 2+, 500 esterase, 11-20 red blood cells. She was not taking aspirin, but was on Xarelto 20 mg daily and reported that she had perhaps missed 1 dose, but not anytime recently. She was cont inued on her Lipitor 40 mg at bedtime along with coenzyme Q10, folic acid, melatonin, Zofran, and tra madol. Past Medical History: As noted including arthritis, coronary artery disease, irritable bowel syndrom e, and carpal tunnel syndrome. Past Surgical History: Hysterectomy, left knee replacement, cervical fusion, colonoscopy, appendecto my, and carpal tunnel surgery. Allergies: PENICILLIN. Home Medications: Lipitor 80 mg at bedtime, Welchol 625 mg daily, Xarelto 20 mg daily, cranberry 425 mg at bedtime, diltiazem daily, irbesartan daily, magnesium oxide 400 mg twice daily, and melatonin 5 mg at bedtime. Family History: Hypertension and diabetes in mother, who at age 94. Her father at age 42 with kidney disease. He fell in a rig, apparently injured his kidneys and that led to kidney failure . Social History: No alcohol, tobacco, or IV drug use. The patient resides at home. Daughters while involved with care. Review of Systems: Noted to have some left upper and lower extremity weakness, left facial drooping, some numbness in th e left upper and lower extremity. Otherwise, no fevers or chills. No nausea or vomiting. No signif icant myalgias, arthralgias, rash, or headache. No psychiatric issues. Physical Examination: Vital Signs: Blood pressure 173/82, pulse 95, respiratory rate 16, temperature 97.3, oxygen saturati on 98% on room air. General: Ms. Sloan is resting comfortably in bed. She is in no acute distress. HEENT: She is normocephalic, atraumatic. Sclerae are anicteric. Oropharynx pink and moist. She do es have a slight area of tenderness in the left upper head and over the left eye. Neck: Supple. Chest: Clear. Heart: Regular. Neuro: Otherwise, in terms of cranial nerves, some mild right nasolabial fold drooping. Fair excurs ion. Mild right upper and lower extremity weakness, 4/5. Decreased sensation as well in that side c ompared to the left. Otherwise, intact coordination and reflexes symmetric. In terms of gait, she d id ambulate with the physical therapist and gait belt with a quad cane covering 120 feet with the lef t hand with contact guard assistance and cuing. Assessment: Ms. Sloan is an 82-year-old patient, who has a 13 mm acute stroke in the right tracy prod ucing some left-sided upper and lower extremity weakness with incoordination, gait difficulty, sensor y loss, and decrease of the right nasolabial fold. She has uncontrolled hypertension, well controlle d lipid panel, and a possible urinary tract infection. Head and neck CT angiogram showed no signific ant abnormalities. Trauma series; head, neck, chest, abdomen, pelvis CT scan showed no bony abnormal ities. She does have multiple comorbid conditions, which are listed. Plan: 1.Aggressive therapy, which may include inpatient rehabilitation for physical, occupational, and spe ech therapy if needed. 2.I agree with aggressive management of comorbidities except may have some permissive hypertension o hermes the next week to not worsen the stroke. 3.Xarelto 20 mg daily. 4.May hold off on aspirin at this point as the patient may have hemorrhagic conversion. She did men tion in the past that there was apparently a GI bleed at some time in the past while she was on Xarel to. 5.She did receive Rocephin 1 g for urinary tract infection. At this point, may hold off on continui ng that. 6.May continue melatonin for insomnia, Zofran for nausea, and for DVT prophylaxis, she is already on Xarelto. USAMA/ADRIAN Voice ID: [id number] Report ID: [id number]
[2023-01-15 04:48] LABS: Potassium 3.6 mEq/L (3.5-5.1)
[2023-01-15] MEDS ORDERED: POTASSIUM CL SA 10 MEQ TAB PO ONE (06:00)
--- NOTE | 2023-01-15 07:02 | ECHO ---
HEIGHT: 5 ft 4 in WEIGHT: 184 lb 15.838 oz DATE OF STUDY: 01/14/[address]: Pasquale Braun MD 2-DIMENSIONAL: YES M.MODE: YES DOPPLER: YES COLOR FLOW: YES TDS: PORTABLE: YES DEFINITY: BUBBLE STUDY: DIAGNOSIS: ATRIAL FIBRILLATION CARDIAC HISTORY: CATHERIZATION: NO SURGERY: NO PROSTHETIC VALVE: NO PACEMAKER: NO MEASUREMENTS (cm) DIASTOLIC (NORMALS) SYSTOLIC (NORMALS) IVSd 1.2 (0.6-1.2) LA Diam 2.5 (1.9-4.0) LVEF 61% LVIDd 4.3 (3.5-5.7) LVIDs 2.9 (2.0-3.5) %FS 33% LVPWd 1.3 (0.6-1.2) Ao Diam 2.5 (2.0-3.7) 2 DIMENSIONAL ASSESSMENT: RIGHT ATRIUM: NOT WELL SEEN LEFT ATRIUM: NORMAL RIGHT VENTRICLE: NOT WELL SEEN LEFT VENTRICLE: NORMAL TRICUSPID VALVE: MILD TRICUSPID REGURGITATION MITRAL VALVE: MILD MITRAL REGURGITATION PULMONIC VALVE: NOT WELL SEEN AORTIC VALVE: NOT WELL SEEN PERICARDIAL EFFUSION: NONE AORTIC ROOT: LEFT VENTRICULAR WALL MOTION: NORMAL DOPPLER/COLOR FLOW: SEE BELOW COMMENTS: 1. POOR WINDOWS 2. NORMAL LEFT VENTRICULAR EJECTION FRACTION 55-60% 3. MODERATE DIASTOLIC DYSFUCNTION 4. MILD MITRAL REGURGITATION 5. MILD TRICUSPID REGURGITATION TECHNOLOGIST: ADDIE CERDA
[2023-01-15] MEDS: DILTIAZEM HCL 180 MG PO SCH (08:24)
[2023-01-15] MEDS: Magnesium Oxide [Magnesium] 250 MG Tablet PO SCH (08:24)
[2023-01-15] MEDS: COLESEVELAM 625 MG PO SCH (08:24)
[2023-01-15] MEDS: FOLIC ACID 1 MG TABLET PO SCH (08:24)
[2023-01-15] MEDS: CETIRIZINE HCL 5 MG TABLET PO SCH (08:24)
[2023-01-15 09:18] VITALS: BP 178/90; TEMP 97.3
--- NOTE | 2023-01-15 11:14 | P.DS ---
Admission Date: 01/13/23 Discharge Date: 01/15/23 Disposition: TRANSFER TO INPATIENT REHAB Discharge Condition: GOOD Reason for Admission: Fall. Consultations: 1. Neurology Hospital Course: DIAGNOSES: # Acute Right Pontine Cerebrovascular Accident # History of Cerebrovascular Accident (2015) # Chronic Atrial Fibrillation # Coronary Artery Disease # Hypertension # Hyperlipidemia # Chronic Obstructive Pulmonary Disease # Gastroesophageal Reflux Disease # Posterior Right Liver Lobe Fluid Collection (3 cm) # Microscopic Hematuria possibly due to Numerous Nonobstructing Right Renal Calculi HOSPITAL COURSE: Ms. Marylin Sloan is a pleasant 82 year old female with a past medical history significant for cerebrovascular accident (2015), chronic atrial fibrillation, coronary artery disease, hypertension, hyperlipidemia, and chronic obstructive pulmonary disease who was admitted to the [facility] on 01/13/2023 for slurred speech. She was admitted to the Medicine service. Upon further evaluation, her CT head/cervical spine/chest/abdomen/pelvis revealed, "no evidence of an acute traumatic abnormality. Sequelae of remote ischemia intracranially as above. Cervical spine degenerative changes. Numerous nonobstructing right renal calculi." Her CT head angiogram revealed, "no evidence of large vessel occlusion or flow-limiting stenosis. Multifocal subtle luminal irregularities along the A2 segments bilaterally, left more than right MCA branches, and the basilar artery. Findings could relate to intracranial atherosclerotic disease, vasculitis, or RCVS. Please correlate clinically, and consider additional evaluation by digital subtraction angiography if clinically indicated." Her CT neck angiogram revealed, "no significant flow abnormality of the neck vessels is identified. Moderate atherosclerotic calcifications." Her MRI brain revealed, "13 mm acute CVA is noted, nonhemorrhagic, involving the right aspect of the tracy." Neurology was consulted and she was evaluated by Dr. Talbert. He recommended atorvastatin, folic acid, and rivaroxaban as well as aggressive physical therapy. He recommended against aspirin given prior bleeding. Physical Therapy was consulted and it was recommended that she be discharged with continued therapy services. With the assistance of case management, she was accepted to [facility]. During her evaluation, she was incidentally found to have microscopic hematuria, numerous nonobstructing right renal calculi, and a posterior right liver lobe fluid collection. She and her daughter were informed of these findings and advised to follow-up with her PCP for further evaluation. They verbalized understanding, and agreed to make this appointment. On 01/15/2023, she was seen on morning rounds and deemed medically stable for discharge. She and her daughter were given the opportunity to ask questions and reported no further questions. Furthermore, all questions were answered to the best of my ability. A copy of this discharge summary will be sent to the above providers to facilitate continuity of care. Today, I personally spent 25 minutes on his case, of which greater than 50% of the time was spent in patient education, counseling, and coordination of care as described above. - Physical Exam General: Alert, In no apparent distress, Oriented x3 HEENT: Atraumatic, Mucous membr. moist/pink, Sclerae nonicteric Neck: JVD not distended Respiratory: Clear to auscultation bilaterally, Normal air movement Cardiovascular: No edema, Regular rate/rhythm, No murmurs Gastrointestinal: Normal bowel sounds, Soft, Non-distended, No tenderness Musculoskeletal: No clubbing Integumentary: No rashes Neurological: Normal speech, Sensation intact, Normal affect, Abnormal strength (4+/5 LUE strength. 5/5 RUE strength. 5/5 BLE strength.), Abnormal cranial nerve function (slight left lower facial droop) NIH Stroke Scale 1a. Level of consciousness: 0 - Alert; keenly responsive 1b. LOC questions: 0 - Both questions right 1c. LOC commands: 0 - Performs both tasks 2. Best Gaze: 0 - Normal 3. Visual: 0 - No visual loss 4. Facial Palsy: 1- minor paralysis 5a. Motor left arm: 0 - No drift for 10 seconds 5b. Motor right arm: 0 - No drift for 10 seconds 6a. Motor left le - No drift for 5 seconds 6b. Motor right le - No drift for 5 seconds 7. Limb ataxia: 0 - No ataxia 8. Sensory: 0 - Normal; no sensory loss 9. Best Language: 0 - Normal; no aphasia 10. Dysarthria: 0 - Normal 11. Extinction and Inattention: 0 - No abnormality 12. Distal motor function: 0 - No abnormality Total Score: 1 Vital Signs/Physical Exam: Temp Pulse Resp BP Pulse Ox 97.3 F 76 18 178/90 H 99 01/15/23 08:00 01/15/23 08:00 01/15/23 08:00 01/15/23 08:00 01/15/23 08:00 Laboratory Data at Discharge: WBC 9.60 thou/uL (4.3-10.9) 01/13/23 11:53 Hgb 14.3 g/dL (12.0-15.0) 01/13/23 11:53 Hct 43.8 % (36.0-45.0) 01/13/23 11:53 Plt Count 197 thou/uL (152-406) 01/13/23 11:53 PT 16.8 SECONDS (9.5-12.5) H 01/13/23 11:53 INR 1.53 01/13/23 11:53 Sodium 141 mEq/L (136-145) 01/15/23 04:10 Potassium 3.6 mEq/L (3.5-5.1) 01/15/23 04:10 BUN 18 mg/dL (7-18) 01/15/23 04:10 Creatinine 0.69 mg/dL (0.55-1.02) 01/15/23 04:10 Glucose 103 mg/dL (74-106) 01/15/23 04:10 Phosphorus 3.0 mg/dL (2.5-4.9) 01/13/23 16:57 Magnesium 2.2 mg/dL (1.6-2.4) 01/13/23 16:57 Total Bilirubin 1.9 mg/dL (0.2-1.0) H 01/13/23 11:53 AST 27 U/L (15-37) 01/13/23 11:53 ALT 46 U/L (13-56) 01/13/23 11:53 Alkaline Phosphatase 82 U/L (45-117) 01/13/23 11:53 Triglycerides 199 mg/dL (<150) H 01/13/23 11:53 Cholesterol 133 mg/dL (<200) 01/13/23 11:53 HDL Cholesterol 65 mg/dL (40-60) H 01/13/23 11:53 Cholesterol/HDL Ratio 2.05 01/13/23 11:53 Home Medications: Atorvastatin Calcium [Lipitor] 80 mg PO BEDTIME 05/31/16 Colesevelam [Welchol*] 625 mg PO DAILY 10/20/16 Cetirizine HCl [Zyrtec*] 10 mg PO DAILY #30 10/22/16 Epinephrine [Epipen] 0.3 mg IJ [facility] PRN #3 auto.injct 10/22/16 Rivaroxaban [Xarelto] 20 mg PO DAILY #30 tab 10/22/16 Sotalol HCl [Betapace*] 80 mg PO BID 6AM 6PM #60 tab 10/22/16 Cranberry Fruit Extract [Cranberry] 425 mg PO BEDTIME 01/13/23 Diltiazem HCl [Diltiazem ER] 1 tab PO DAILY 01/13/23 Irbesartan 1 tab PO DAILY 01/13/23 Magnesium Oxide [Magnesium] 1 tab PO BID 01/13/23 Melatonin 1 tab PO BEDTIME PRN 01/13/23 Ubidecarenone [Co Q-10] 1 cap PO BEDTIME 01/13/23 Physician Discharge Instructions: - Continue care at [facility] Diet: AHA Activity: Fall precautions Followup: Dirk Talbert MD [ASSOCIATE-ACTIVE - CAN ADMIT] - Heather Maddox FNP [Primary Care Provider] - Time spent managing pt's care (in minutes): 25
[2023-01-15 12:17] VITALS: O2SAT 99
== END 2023-01-15 12:22 | DRG 65 ==
LOC: ER 11:27 → ERHOLD 15:53 → 2ND 16:53
PROVIDERS: ADMIT Internal Medicine; ATTEND Internal Medicine
DX: I63.9 Cerebral infarction, unspecified (principal); I48.20 Chronic atrial fibrillation, unspecified; N39.0 Urinary tract infection, site not specified; I69.354 Hemiplegia and hemiparesis following cerebral infarction affecting left non-dominant side; R29.810 Facial weakness; R47.01 Aphasia; I10 Essential (primary) hypertension; K58.9 Irritable bowel syndrome, unspecified; G47.00 Insomnia, unspecified; K21.9 Gastro-esophageal reflux disease without esophagitis; M19.90 Unspecified osteoarthritis, unspecified site; J44.9 Chronic obstructive pulmonary disease, unspecified; E78.00 Pure hypercholesterolemia, unspecified; I25.10 Atherosclerotic heart disease of native coronary artery without angina pectoris; R82.71 Bacteriuria; R31.29 Other microscopic hematuria; R29.702 NIHSS score 2; Z88.0 Allergy status to penicillin; Z60.2 Problems related to living alone; Z88.5 Allergy status to narcotic agent; Z88.8 Allergy status to other drugs, medicaments and biological substances; Z79.01 Long term (current) use of anticoagulants; Z79.82 Long term (current) use of aspirin; Z90.49 Acquired absence of other specified parts of digestive tract; Z79.899 Other long term (current) drug therapy; Z96.652 Presence of left artificial knee joint
CPT/HCPCS: 36415; 70450; 70496; 70498; 70551; 71045; 71250; 72125; 80048; 80061; 80076; 81001; 82565; 82947; 83036; 83735; 83880; 84100; 84439; 84443; 84484; 85025; 85610; 93005; 93306; 96374; 96375; 97112; 97116; 97161; 99285; J0696; J7030; Q9967

== ENCOUNTER 2023-01-15 08:56 | Inpatient (IN) | payer OTHER ==
--- OUTSIDE RECORDS SUMMARY | 2023-01-15 12:16 | XMS REPORT | Continuity of Care Document ---
:1940 Author Organization [facility] t Address [address] [place] [address] Care Team Providers Name Role Phone Gabby Mazariegos Primary Care Physician Jenny Attending Clinician Unavailable Doctor Unassigned, Weiner Attending Clinician Unavailable AUGUSTINE LANGLEY Attending Clinician [...] Date Expiration Date German jhonny MEDICARE B-[place]: [id number] 2004 [email or web address] LIBCAST 00:00:00 BUNNY CROCKETT [id number] [facility] MEDICARE A-[place]: [id number] 2004 BlackbookHR - 00:00:00 [facility] [address] Problems Condition Condition Condition Status Onset [...] da of kidney of 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 Added automatic ally from request for surgery [id number] Left Left Disease Active 2016-06 Overview: Univer s ureteral ureteral 0-11 Formattin ity of stone stone 00:00: g of this [place] 00 note Medical might be Branch different from the original. Added automatic ally from request for surgery [id number] Hydronephr Hydronephr Disease Active U nivers osis [...] 2017-05-01 Memoria (finding) (finding) 05:00:45 l Active [place] Problem 05/01/2017 right [facility] Sleep, Sleep, Problem [...] itis, 00 right knee right knee 04/23/2017 7 [facility] Allergies, Adverse Reactions, Alerts Allergy Allergy Status Severity Reaction(s) Onset Inactive Treating Comm ents Source Name Type Date Date Clinician Adhesive Propensi Active Rash Univer s Tape-Lavonne ty to 409 ity of icones adverse 00:00: [place] reaction [...] Anaphylaxis M emoria il il (disorder) l [place] morphine morphine Active Hallucinatio Memoria ns (finding) l [place] penicill penicill Active Memori a in in l Romero Tape<sup Tape<sup Active Cutaneous Mem oria >1</sup> >1</sup> eruption l (morphologic Herm anshul abnormality) Xifaxan Xifaxan Active Swelling Memori a (morphologic l abnormality) Herm anshul Social History Social Habit Start Date Stop Date Quantity Comments Source History SDOH University o f Alcohol Frequency [facility] edical Branch History SDOH University o f Alcohol Std [place] [facility] Drinks Branch History SDOH University o f Alcohol Binge [place] [facility] al Branch Alcohol intake 2021-08-30 2021-08-30 Current drinker Unive rsity of 00:00:00 00:00:00 of alcohol [place] [facility] (finding) Branch Exposure to 2021-07-28 2021-08-27 Not sure University SARS-CoV-2 00:00:00 13:55:00 [facility] (event) Branch Alcohol Comment 2017-03-14 2017-03-14 Rare occasions Unive rsity of 00:00:00 00:00:00 [facility] Tobacco use and 2016-08-08 2016-08-08 Never used Universit y of exposure 00:00:00 00:00:00 [facility] Sex Assigned At [birth year] Universit y of 00:00:00 00:00:00 [facility] Smoking Status Start Date Stop Date Source Social History [facility] Medications Ordered Filled Start Stop Current Ordering Indication Dosage Frequency Signature Comments Components Source Medication Medication Date Date Medication? Clinician (SIG) Name Name neomycin-po Yes PRN, Nitish s lymyxin-dex -30 Starting ity of amethasone 17:30: on Fri (MAXITROL) 00 08/29/21 at Med ical 3.5 1230, Branch mg/g-10,000 Until unit/g-0.1 Discontinu % ed, ophthalmic Routine, ointment Intra-op neomycin-po 2021- No PRN, Unive rs lymyxin-dex 30 30 Starting ity of amethasone 17:30: 20:08 on Fri [facility] (MAXITROL) 00 :05 08/29/21 at Med ical 3.5 1230, Branch mg/g-10,000 Until Fri unit/g-0.1 08/29/21 at % 1508, ophthalmic Routine, ointment Intra-op dexamethaso Yes PRN, Univer s ne 30 Starting ity of (DECADRON 17:29: on Wed [place] PHOSPHATE) 00 08/29/21 at [facility] ical injection 1229, Branch Until Discontinu ed, Routine, Intra-op ceFAZolin Yes PRN, Univers (ANCEF) 08-29 Starting ity of injection 17:29: on Wed [place] 00 08/29/21 at [facility] 1229, Branch Until Discontinu ed, AMBREEN, Intra-op carbachoL Yes PRN, Univers (MIOSTAT) 08-29 Starting ity of 0.01 % 17:29: on Wed [place] intraocular 00 08/29/[address] dical injection 1229, Branch Until Discontinu ed, Routine, Intra-op DUOVISC Yes PRN, Univers (DUOVISC 08-29 Starting ity of VISCO 17:29: on Fri ELASTIC) 3 00 08/29/21 at [facility] ical %-4 %(0.5 1229, Branch mL) 1 % Until (0.55 mL) Discontinu intraocular ed, injection Routine, Intra-op dexamethaso 2021- No PRN, Unive rs ne 08-29 Starting ity of (DECADRON 17:29: 20:08 on Fri [place] PHOSPHATE) 00 :05 08/29/21 at [facility] ical injection 1229, Branch Until Fri08/29/21 at 1508, Routine, Intra-op ceFAZolin 2021- No PRN, Univers (ANCEF) 08-29 Starting ity of injection 17:29: 20:08 on Fri [place] 00 :05 08/29/21 at [facility] 1229, Branch Until Fri08/29/21 at 1508, AMBREEN, Intra-op carbachoL 2021-2021- No PRN, Univers (MIOSTAT) 08-29 Starting ity o f 0.01 % 17:29: 20:08 on Fri [place] intraocular 00 :05 08/29/[address] dical injection 1229, Branch Until Fri08/29/21 at 1508, Routine, Intra-op DUOVISC 2021- No PRN, Univers (DUOVISC 08-29 Starting ity of VISCO 17:29: 20:08 on Fri ELASTIC) 3 00 :05 08/29/21 at [facility] ica %-4 %(0.5 1229, Branch mL) 1 % Until Wed (0.55 mL) 08/29/21 at intraocular 1508, injection Routine, Intra-op EPINEPHrine Yes PRN, Univer s 1:1,000 (1 3-30 Starting ity o f mg/mL) 17:25: on Fri (ADRENALIN) 00 08/29/[address] dical injection 1225, Branch Until Discontinu ed, Routine, Intra-op balanced Yes PRN, Univers salt irrig 3-30 Starting ity o f soln comb1 17:25: on Fri (BSS PLUS) 00 08/29/21 at [facility] ical ophthalmic 1225, Branch solution Until 500 mL bag Discontinu ed, Routine, Intra-op EPINEPHrine 2021- No PRN, Unive rs 1:1,000 (1 08-29-30 Starting ity of mg/mL) 17:25: 20:08 on Fri (ADRENALIN) 00 :05 08/29/[address] dical injection 1225, Branch Until Fri08/29/21 at 1508, Routine, Intra-op balanced 2021- No PRN, Univers salt irrig 3-30 03-30 Starting ity of soln comb1 17:25: 20:08 [place] Fri [place] (BSS PLUS) 00 :05 08/29/21 at [facility] ical ophthalmic 1225, Branch solution Until Wed [...] of Recomb. 17:17: on Fri (HYLENEX) 00 3/30/22 at [facility] injection 1217, Branch Until Discontinu ed, Routine, Intra-op eye block Yes PRN, Univers syringe 11 30 Starting ity o f mL 17:17: on Fri08/29/21 at [facility] 1217, Branch Until Discontinu ed, Intra-op Hyaluronida 2021- No PRN, Unive rs se, Human 08-29 Starting ity o f Recomb. 17:17: 20:08 on Fri (HYLENEX) 00 :05 08/29/21 at [facility] injection 1217, Branch Until Fri08/29/21 at 1508, Routine, Intra-op eye block 2021- No PRN, Univers syringe 11 08-29 Starting ity of mL 17:17: 20:08 on Fri 00 :05 08/29/21 at [facility] 1217, Branch Until Fri08/29/21 at 1508, Intra-op sodium 0 Yes PRN, Univers chloride 30 Starting ity of (NS) 17:09: on Fri injection 08/29/21 at [facility] 1209, Branch Until Discontinu ed, Routine, Intra-op sodium 2021- No PRN, Univers chloride 08-2930 Starting ity of (NS) 17:09: 20:08 on Fri [place] injection 00 :05 08/29/21 at [facility] 1209, Branch Until Fri08/29/21 at 1508, [...] Medical Infusion, Branch ONCE, 1 dose, On 3/30/22 at 1045, Routine, DSU Pre-op cyclopent 202- No .5mL 0.5 mL, Univ ers 1%-tropic -30 -30 Left Eye, ity of 1%-phenyl 15:15: 15:35 ONCE, 1 [place] 2.5%-ketor 00 :00 dose, On Medic al 0.5% Wed Branch (MYDRIATIC 08/29/21 at #5) 1015, ophthalmic Routine, solution DSU Pre-op syringe 0.5 mL cyclopent 2021- No .5mL 0.5 mL, Univ ers 1%-tropic -08-29 Left Eye, ity of 1%-phenyl 15:15: 15:35 ONCE, 1 [place] 2.5%-ketor 00 :00 dose, On Medic al 0.5% Wed Branch (MYDRIATIC 08/29/21 at #5) 1015, ophthalmic Routine, solution DSU Pre-op syringe 0.5 mL Cranberry Yes [id number] Take 4,200 Univers 400 mg Cap 3-30 mg by ity of 13:08: mouth. [place] [address] Medical Branch melatonin Yes 10mg Take 10 mg Un sarah 10 mg Cap 3-30 by mouth ity of 13:08: at [place] [address] bedtime. Medical Branch Cetirizine Yes Take by [facility] ers (ZYRTEC) 10 3-30 mouth. ity of mg capsule 13:08: [place] [address] Medical Branch Magnesium Yes 1{tbl} Take 1 Univ ers 250 mg Tab 3-30 tablet by ity of 13:08: mouth 2 [place] 04 (two) Medical times Branch daily. irbesartan Yes 300mg Take 300 Un sarah 300 mg 3-30 mg by ity of tablet 13:08: mouth at [place] [address] bedtime. Medical Branch diltiazem Yes 180mg Take 180 Uni vers XR 180 mg 3-30 mg by ity of 24 hr 13:08: mouth [facility] 04 daily. Medical Branch lactobacill Yes 1{tbl} [...] of ORAL 13:08: Medical Branch Cranberry Yes [id number] 4200mg Take 4,200 Univers 400 mg Cap 3-30 mg by ity of 13:08: mouth. Medical Branch melatonin Yes 10mg Take 10 mg Un sarah 10 mg Cap 3-30 by mouth ity of 13:08: at [place] [address] bedtime. Medical Branch Cetirizine Yes Take by Univ ers (ZYRTEC) 10 3-30 mouth. ity of mg capsule 13:08: Medical Branch Magnesium Yes 1{tbl} Take 1 Univ ers 250 mg Tab 3-30 tablet by ity of 13:08: mouth 2 (two) Medical times Branch daily. irbesartan Yes 300mg Take 300 Un sarah 300 mg 3-30 mg by ity of tablet 13:08: mouth at [place] [address] bedtime. Medical Branch diltiazem Yes 180mg Take 180 Uni vers XR 180 mg 3-30 mg by ity of 24 hr 13:08: mouth [place] capsule daily. Medical Branch lactobacill Yes 1{tbl} [...] of ORAL 13:08: Medical Branch Cranberry Yes [id number] 4200mg Take 4,200 Univers 400 mg Cap 3-30 mg by ity of 13:08: mouth. Medical Branch melatonin Yes 10mg Take 10 mg Un sarah 10 mg Cap 3-30 by mouth ity of 13:08: at [place] [address] bedtime. Medical Branch Cetirizine Yes Take by Univ ers (ZYRTEC) 10 3-30 mouth. ity of mg capsule 13:08: [place] [facility] Branch Magnesium Yes 1{tbl} Take 1 Univ ers 250 mg Tab 3-30 tablet by ity of 13:08: mouth 2 (two) Medical times Branch daily. irbesartan Yes 300mg Take 300 Un sarah 300 mg 3-30 mg by ity of tablet 13:08: mouth at [place] [address] bedtime. Medical Branch diltiazem Yes 180mg Take 180 Uni vers XR 180 mg 3-30 mg by ity of 24 hr 13:08: mouth [place] capsule daily. Medical Branch lactobacill Yes 1{tbl} Take 1 Un sarah us 3-30 tablet by ity of combination 13:08: mouth 2 [place] as no.4 (two) Medical (PROBIOTIC) times Branch 3 billion daily. cell Cap cyanocobala Yes Place Unive rs min, 3-30 under the ity of vitamin 13:08: tongue. [place] B-12 Medical (VITAMIN Branch B-12 SL) COQ10, Yes Take by [facility] UBIQUINOL, 3-30 mouth. ity of ORAL 13:08: [place] [facility] Branch neomycin-po Yes PRN, [facility] lymyx[facility]-dex 3-16 Starting ity of amethasone 15:23: on Fri (MAXITROL) 00 08/15/21 at Med ical 3.5 1023, Branch mg/g-10,000 Until unit/g-0.1 Discontinu % ed, ophthalmic Routine, ointment Intra-op neomycin-po 2021- No PRN, Unive rs lymyxin-dex 3-16 -16 Starting ity of amethasone 15:23: 18:02 on Fri (MAXITROL) 00 :18 08/15/21 at Med ical [...] on Wed [place] intraocular 00 08/15/[address] dical injection 1020, Branch Until Discontinu ed, [...] Wed [place] intraocular 00 :18 08/15/[address] dical injection 1020, Branch Until Fri08/15/21 at 1302, Routine, Intra-op DUOVISC Yes PRN, Univers (DUOVISC 08-15 Starting ity of VISCO 15:15: on Fri [place] ELASTIC) 3 00 08/15/21 at Med ical %-4 %(0.5 1015, Branch mL) 1 % Until (0.55 mL) Discontinu intraocular ed, injection Routine, Intra-op DUOVISC 2021- No PRN, Univers (DUOVISC 08-15 Starting ity of VISCO 15:15: 18:02 on Fri [place] ELASTIC) 3 00 :18 08/15/21 at Med ical %-4 %(0.5 1015, Branch mL) 1 % Until Wed (0.55 mL) 08/15/21 at intraocular 1302, injection Routine, Intra-op ceFAZolin Yes PRN, Univers (ANCEF) 08-15 Starting ity of injection 15:14: on Wed [place] 00 08/15/21 at Medical 1014, Branch Until Discontinu ed, AMBREEN, Intra-op ceFAZolin 2021- No PRN, Univers (ANCEF) 3-15 08-16 Starting ity of injection 15:14: 18:02 on Fri [place] 00 :18 08/15/21 at [facility] 1014, Branch Until Fri08/15/21 at 1302, AMBREEN, Intra-op water for Yes PRN, Univers irrigation 3-16 Starting ity o f irrigation 15:05: on Fri [place] solution 00 08/15/21 at [facility] al 1005, Branch Until Discontinu ed, Routine, Intra-op water for 2021- No PRN, Univers irrigation 08-15-16 Starting ity of irrigation 15:05: 18:02 on Fri [place] solution 00 :18 08/15/21 at [facility] al 1005, Branch Until Fri08/15/21 at 1302, Routine, Intra-op eye block Yes PRN, Univers syringe 11 -16 Starting ity o f mL 15:02: on Fri 00 08/15/21 at [facility] 1002, Branch Until Discontinu ed, Intra-op Hyaluronida Yes PRN, Univer s se, Human -16 Starting ity of Recomb. 15:02: on Fri (HYLENEX) 00 08/15/21 at [facility] injection 1002, Branch Until Discontinu ed, Routine, Intra-op eye block 2021- No PRN, Univers syringe 11 08-15-16 Starting ity of mL 15:02: 18:02 on Fri [place] 00 :18 08/15/21 at [facility] 1002, Branch Until Fri08/15/21 at 1302, Intra-op Hyaluronida 2021- No PRN, Unive rs se, Human 08-15-16 Starting ity o f Recomb. 15:02: 18:02 on Fri (HYLENEX) 00 :18 08/15/21 at [facility] injection 1002, Branch Until Fri08/15/21 at 1302, Routine, Intra-op sodium Yes PRN, Univers chloride 3-16 Starting ity of (NS) 15:01: on Fri [place] injection 00 08/15/21 at [facility] 1001, Branch Until Discontinu ed, Routine, Intra-op sodium 2021- No PRN, Univers chloride 08-15 Starting ity of (NS) 15:01: 18:02 on Fri [place] injection 00 :18 08/15/21 at [facility] bladimir 1001, Branch Until 08/15/21 at 1302, Routine, Intra-op EPINEPHrine Yes PRN, Univer s 1:1,000 (1 08-15 Starting ity o f mg/mL) 15:00: on Fri (ADRENALIN) 00 08/15/[address] dical injection 1000, Branch Until Discontinu ed, Routine, Intra-op balanced Yes PRN, Univers salt irrig 08-15 Starting ity o f soln comb1 15:00: on Fri (BSS PLUS) 00 08/15/21 at [facility] ica ophthalmic 1000, Branch solution Until 500 mL bag Discontinu ed, Routine, Intra-op EPINEPHrine 2021- No PRN, Unive rs 1:1,000 (1 08-15 Starting ity of mg/mL) 15:00: 18:02 on Fri (ADRENALIN) 00 :18 08/15/[address] dical injection 1000, Branch Until Fri08/15/21 at 1302, Routine, Intra-op balanced 2021- No PRN, Univers salt irrig 08-15 Starting ity of soln comb1 15:00: 18:02 on Fri [place] (BSS PLUS) 00 :18 08/15/21 at [facility] ica ophthalmic 1000, Branch solution Until Fri 500 mL bag 08/15/21 at 1302, Routine, Intra-op cyclopent 2021- No .5mL 0.5 mL, Univ ers 1%-tropic 08-15 Right Eye, ity of 1%-phenyl 13:00: 13:09 ONCE, 1 [place] 2.5%-ketor 00 :00 dose, On Medic al 0.5% [facility] (MYDRIATIC 08/15/21 at #5) 0800, ophthalmic Routine, solution DSU Pre-op syringe 0.5 mL lactated 2021- No 1000mL at 42 Unive rs ringers IV 08-15 mL/hr, ity of infusion 13:00: 13:08 1,000 mL, [place] as 1,000 mL 00 :00 IV Medical Infusion, Branch ONCE, 1 dose, On Fri08/15/21 at 0800, Routine, DSU Pre-op cyclopent 2021- No .5mL 0.5 mL, Univ ers 1%-tropic 08-15-16 Right Eye, ity of 1%-phenyl 13:00: 13:09 ONCE, 1 [place] 2.5%-ketor 00 :00 dose, On Medic al 0.5% Fri Branch (MYDRIATIC 08/15/21 at #5) 0800, ophthalmic Routine, solution DSU Pre-op syringe 0.5 mL lactated 2021- No 1000mL at 42 Unive rs ringers IV 08-15 03-16 mL/hr, ity of infusion 13:00: 13:08 1,000 mL, [place] as 1,000 mL 00 :00 IV Medical Infusion, Branch ONCE, 1 dose, On Fri08/15/21 at 0800, Routine, DSU Pre-op Cranberry Yes [id number] 4200mg Take 4,200 Univers 400 mg Cap 3-16 mg by ity of 11:02: mouth. [place] [address] Medical Branch melatonin Yes 10mg Take 10 mg Un sarah 10 mg Cap 3-16 by mouth ity of 11:02: at [place] [address] bedtime. Medical Branch Cetirizine Yes Take by [facility] ers (ZYRTEC) 10 3-16 mouth. ity of mg capsule 11:02: [place] [address] Medical Branch Magnesium Yes 1{tbl} Take 1 Univ ers 250 mg Tab 3-16 tablet by ity of 11:02: mouth 2 [place] 14 (two) Medical times Branch daily. irbesartan Yes 300mg Take 300 Un sarah 300 mg 3-16 mg by ity of tablet 11:02: mouth at [place] [address] bedtime. Medical Branch diltiazem Yes 180mg Take [...] under the ity of vitamin 11:02: tongue. [place] Medical (VITAMIN Branch B-12 ) COQ10, Yes Take by Univers UBIQUINOL, 3-16 mouth. ity of ORAL 11:02: Medical Branch Cranberry Yes [id number] 4200mg Take 4,200 Univers 400 mg Cap 3-16 mg by ity of 11:02: mouth. Medical Branch melatonin Yes 10mg Take 10 mg Un sarah 10 mg Cap 3-16 by mouth ity of 11:02: at [place] [address] bedtime. Medical Branch Cetirizine Yes Take by Univ ers (ZYRTEC) 10 3-16 mouth. ity of mg capsule 11:02: Medical Branch Magnesium Yes 1{tbl} Take 1 Univ ers 250 mg Tab 3-16 tablet by ity of 11:02: mouth 2 [place] 14 (two) Medical times Branch daily. irbesartan Yes 300mg Take 300 Un sarah 300 mg 3-16 mg by ity of tablet 11:02: mouth at [place] [address] bedtime. Medical Branch diltiazem Yes 180mg Take [...] of ORAL 11:02: Medical Branch Cran[place] Yes [id number] 4200mg Take 4,200 Univers 400 mg Cap 3-16 mg by ity of 11:02: mouth. 14 Medical Branch melatonin Yes 10mg Take 10 mg Un sarah 10 mg Cap 3-16 by mouth ity of 11:02: at [place] 14 bedtime. Medical Branch Cetirizine Yes Take [...] by ity of tablet 11:02: mouth at [place] 14 bedtime. Medical Branch diltiazem Yes 180mg [...] under the ity of vitamin 11:02: tongue. [place] B 14 Medical (VITAMIN Branch B-12 SL) COQ10, Yes Take by Univers UBIQUINOL, 3-16 mouth. ity of ORAL 11:02: 14 Medical Branch melatonin 2019-06 Yes 10mg Take 10 mg Un sarah 10 mg Cap 0-08 by mouth ity of 15:28: at [place] 10 bedtime. Medical Branch cyanocobala 2019-[address] Unive rs min, 0-08 under the ity of vitamin 15:28: tongue. [place] B12, Medical (VITAMIN Branch B-12 SL) COQ10, 2019-06 Yes Take by Univers UBIQUINOL, 0-08 mouth. ity of ORAL 15:28: 10 Medical Branch melatonin 2019-06 Yes 10mg Take 10 mg Un sarah 10 mg Cap 0-08 by mouth ity of 15:28: at [place] 10 bedtime. Medical Branch cyanocobala 2019-[address] Unive rs min, 0-08 under the ity of vitamin 15:28: tongue. [place] B-12, 10 Medical (VITAMIN Branch B-12 SL) COQ10, 2019-06 Yes Take by Univers UBIQUINOL, 0-08 mouth. ity of ORAL 15:28: Medical Branch melatonin 2019-06 Yes 10mg Take 10 mg Un sarah 10 mg Cap 0-08 by mouth ity of 15:28: at [place] 10 bedtime. Medical Branch cyanocobala 2019-[address] Unive rs min, 0-08 under the ity of vitamin 15:28: tongue. [place] B-12, 10 Medical (VITAMIN Branch B-12 SL) COQ10, 2019-06 Yes Take by Univers UBIQUINOL, 0-08 mouth. ity of ORAL 15:28: [place] [address] Medical Branch melatonin 2019-06 Yes 10mg Take 10 mg Un sarah 10 mg Cap 0-08 by mouth ity of 15:28: at [place] 10 bedtime. Medical Branch cyanocobala 2019-[address] Unive rs min, 0-08 under the ity of vitamin 15:28: tongue. [place] B12, 10 Medical (VITAMIN Branch B-12 ) COQ10, 2019-06 Yes Take by Univers UBIQUINOL, 0-08 mouth. ity of ORAL 15:28: [place] [address] Medical Branch melatonin 2019-06 Yes 10mg Take 10 mg Un sarah 10 mg Cap 0-08 by mouth ity of 15:28: at [place] 10 bedtime. Medical Branch cyanocobala 2019-[address] Unive rs min, 0-08 under the ity of vitamin 15:28: tongue. [place] B-12, 10 Medical (VITAMIN Branch B-12 ) COQ10, 2019-06 Yes Take by Univers UBIQUINOL, 0-08 mouth. ity of ORAL 15:28: [place] [address] Medical Branch melatonin 2019-06 Yes 10mg Take 10 mg Un sarah 10 mg Cap 0-08 by mouth ity of 15:28: at [place] 10 bedtime. Medical Branch cyanocobala 2019-[address] Unive rs min, 0-08 under the ity of vitamin 15:28: tongue. [place] B-12, 10 Medical (VITAMIN Branch B-12 SL) COQ10, 2019-06 Yes Take by Univers UBIQUINOL, 0-08 mouth. ity of ORAL 15:28: [place] [address] Medical Branch melatonin 2019-06 Yes 10mg Take 10 mg Un sarah 10 mg Cap 0-08 by mouth ity of 15:28: at [place] 10 bedtime. Medical Branch cyanocobala 2019-[address] Unive rs min, 0-08 under the ity of vitamin 15:28: tongue. B-12, 10 Medical (VITAMIN Branch B-12 SL) COQ10, 2019-06 Yes Take by Univers UBIQUINOL, 0-08 mouth. ity of ORAL 15:28: Medical Branch melatonin 2019-06 Yes 10mg Take 10 mg Un sarah 10 mg Cap 0-08 by mouth ity of 15:28: at [place] 10 bedtime. Medical Branch cyanocobala 2019-[address] Unive rs min, 0-08 under the ity of vitamin 15:28: tongue. B-12, 10 Medical (VITAMIN Branch B-12 SL) COQ10, 2019-06 Yes Take by Univers UBIQUINOL, 0-08 mouth. ity of ORAL 15:28: Medical Branch melatonin 2019-06 Yes 10mg Take 10 mg Un sarah 10 mg Cap 0-08 by mouth ity of 15:28: at [place] 10 bedtime. Medical Branch cyanocobala 2019-[address] Unive rs min, 0-08 under the ity of vitamin 15:28: tongue. B-12, 10 Medical (VITAMIN Branch B-12 SL) COQ10, 2019-06 Yes Take by Univers UBIQUINOL, 0-08 mouth. ity of ORAL 15:28: Medical Branch melatonin 2019-06 Yes 10mg Take 10 mg Un sarah 10 mg Cap 0-08 by mouth ity of 15:28: at [place] 10 bedtime. Medical Branch cyanocobala 2019-[address] Unive rs min, 0-08 under the ity of vitamin 15:28: tongue. B-12, 10 Medical (VITAMIN Branch B-12 SL) COQ10, 2019-06 Yes Take by Univers UBIQUINOL, 0-08 mouth. ity of ORAL 15:28: Medical Branch melatonin 2019-06 Yes 10mg Take 10 mg Un sarah 10 mg Cap 0-08 by mouth ity of 15:28: at [place] 10 bedtime. Medical Branch cyanocobala 2019-[address] Unive rs min, 0-08 under the ity of vitamin 15:28: tongue. [place] B-12, 10 Medical (VITAMIN Branch B-12 SL) COQ10, 2019-06 Yes Take by Univers UBIQUINOL, 0-08 mouth. ity of ORAL 15:28: [place] [address] Medical Branch melatonin 2019-06 Yes 10mg Take 10 mg Un sarah 10 mg Cap 0-08 by mouth ity of 15:28: at [place] [address] bedtime. Medical Branch cyanocobala 2019-[address] Unive rs min, 0-08 under the ity of vitamin 15:28: tongue. [place] B12, Medical (VITAMIN Branch B-12 ) COQ10, 2019-06 Yes Take by Univers UBIQUINOL, 0-08 mouth. ity of ORAL 15:28: [place] [address] Medical Branch melatonin 2019-06 Yes 10mg Take 10 mg Un sarah 10 mg Cap 0-08 by mouth ity of 15:28: at [place] [address] bedtime. Medical Branch cyanocobala 2019-[address] Unive rs min, 0-08 under the ity of vitamin 15:28: tongue. [place] B12, Medical (VITAMIN Branch B-12 ) COQ10, 2019-06 Yes Take by Univers UBIQUINOL, 0-08 mouth. ity of ORAL 15:28: [address] Branch Cranberry 2019-06 Yes [id number] 4200mg Take 4,200 Univers 400 mg Cap 0-08 mg by ity of 15:25: mouth. [place] [address] Medical Branch Cetirizine 2019-06 Yes Take by Univ ers (ZYRTEC) 10 0-08 mouth. ity of mg capsule 15:25: [address] Branch Magnesium 2019-06 Yes 1{tbl} Take 1 Univ ers 250 mg Tab 0-08 tablet by ity of 15:25: mouth 2 [place] 10 (two) Medical times Branch daily. irbesartan 2019-06 Yes 300mg Take 300 Un sarah 300 mg 0-08 mg by ity of tablet 15:25: mouth at [place] [address] bedtime. Medical Branch diltiazem 2019-06 Yes 180mg Take 180 Uni vers XR 180 mg 0-08 mg by ity of 24 hr 15:25: mouth [place] capsule 10 daily. Medical Branch lactobacill 2019-06 Yes 1{tbl} Take 1 Un sarah us 0-08 tablet by ity of combination 15:25: mouth 2 [place] as no.4 (two) Medical (PROBIOTIC) times Branch 3 billion daily. cell Cap Cranberry 2019-06 Yes [id number] 4200mg Take 4,200 Univers 400 mg Cap 0-08 mg by ity of 15:25: mouth. [place] [address] Medical Branch Cetirizine 2019-06 Yes Take by Univ ers (ZYRTEC) 10 0-08 mouth. ity of mg capsule 15:25: [place] [address] Medical Branch Magnesium 2019-06 Yes 1{tbl} Take 1 Univ ers 250 mg Tab 0-08 tablet by ity of 15:25: mouth 2 [place] [address] (two) Medical times Branch daily. irbesartan 2019-06 [...] billion daily. cell Cap Cran[place] 2019-06 Yes [id number] 4200mg Take 4,200 Univers 400 mg Cap 0-08 mg by ity of 15:25: mouth. [place] [address] Medical Branch Cetirizine 2019-06 Yes Take by Univ ers (ZYRTEC) 10 0-08 mouth. ity of mg capsule 15:25: [place] [address] [facility] Branch Magnesium 2019-06 Yes 1{tbl} Take 1 [facility] 250 mg Tab 0-08 tablet by ity of 15:25: mouth 2 [place] [address] (two) Medical times Branch daily. irbesartan 2019-06 [...] billion daily. cell Cap Cranberry 2019-06 Yes [id number] 4200mg Take 4,200 [facility] 400 mg Cap 0-08 mg by ity of 15:25: mouth. [place] [address] [facility] Cetirizine 2019-06 Yes Take by [facility] (ZYRTEC) 10 0-08 mouth. ity of mg capsule 15:25: [place] [address] [facility] Magnesium 2019-06 Yes 1{tbl} Take 1 [facility] 250 mg Tab 0-08 tablet by ity of 15:25: mouth 2 [place] [address] (two) Medical times Branch daily. irbesartan 2019-06 Yes 300mg Take 300 Un [place] 300 mg 0-08 mg by ity of tablet 15:25: mouth at [place] 10 bedtime. Medical Branch diltiazem 2019-06 Yes [...] billion daily. cell Cap Cranberry 2019-06 Yes [id number] 4200mg Take 4,200 [facility] 400 mg Cap 0-08 mg by ity of 15:25: mouth. [place] [address] [facility] Cetirizine 2019-06 Yes Take by [facility] ers (ZYRTEC) 10 0-08 mouth. ity of mg capsule 15:25: [place] [address] [facility] Magnesium 2019-06 Yes 1{tbl} Take 1 [facility] ers 250 mg Tab 0-08 tablet by ity of 15:25: mouth 2 [place] [address] (two) Medical times Branch daily. irbesartan 2019-06 Yes 300mg Take 300 Un [place] 300 mg 0-08 mg by ity of tablet 15:25: mouth at [place] 10 bedtime. Medical Branch diltiazem 2019-06 Yes [...] billion daily. cell Cap Cranberry 2019-06 Yes [id number] 4200mg Take 4,200 [facility] 400 mg Cap 0-08 mg by ity of 15:25: mouth. [place] [address] [facility] Branch Cetirizine 2019- Yes Take by [facility] ers (ZYRTEC) 10 0-08 mouth. ity of mg capsule 15:25: [place] [address] [facility] Magnesium 2019- Yes 1{tbl} Take 1 [facility] ers 250 mg Tab 0-08 tablet by ity of 15:25: mouth 2 [place] 10 (two) Medical times Branch daily. irbesartan 2019-06 Yes 300mg Take 300 Un [place] 300 mg 0-08 mg by ity of tablet 15:25: mouth at [place] 10 bedtime. Medical Branch diltiazem 2019-06 Yes [...] billion daily. cell Cap Cranberry 2019-06 Yes [id number] 4200mg Take 4,200 [facility] 400 mg Cap 0-08 mg by ity of 15:25: mouth. [place] [address] [facility] Cetirizine 2019-06 Yes Take by [facility] ers (ZYRTEC) 10 0-08 mouth. ity of mg capsule 15:25: [place] [address] [facility] Magnesium 2019- Yes 1{tbl} Take 1 [facility] ers 250 mg Tab 0-08 tablet by ity of 15:25: mouth 2 [place] [address] (two) Medical times Branch daily. irbesartan 2019-06 Yes 300mg Take 300 Un [place] 300 mg 0-08 mg by ity of tablet 15:25: mouth at [place] 10 bedtime. Medical Branch diltiazem 2019- Yes [...] billion daily. cell Cap Cranberry 2019- Yes [id number] 4200mg Take 4,200 [facility] 400 mg Cap 0-08 mg by ity of 15:25: mouth. [place] [address] [facility] Cetirizine 2019-06 Yes Take by [facility] ers (ZYRTEC) 10 0-08 mouth. ity of mg capsule 15:25: [place] [address] [facility] Magnesium 2019-06 Yes 1{tbl} Take 1 [facility] ers 250 mg Tab 0-08 tablet by ity of 15:25: mouth 2 [place] [address] (two) Medical times Branch daily. irbesartan 2019-06 Yes 300mg Take 300 Un [place] 300 mg 0-08 mg by ity of tablet 15:25: mouth at [place] [address] bedtime. Medical Branch diltiazem 2019-06 Yes 180mg [...] billion daily. cell Cap Cranberry 2019-06 Yes [id number] 4200mg Take 4,200 [facility] 400 mg Cap 0-08 mg by ity of 15:25: mouth. [place] [address] [facility] Cetirizine 2019-06 Yes Take by [facility] ers (ZYRTEC) 10 0-08 mouth. ity of mg capsule 15:25: [place] [address] [facility] Magnesium 2019-06 Yes 1{tbl} Take 1 [facility] ers 250 mg Tab 0-08 tablet by ity of 15:25: mouth 2 [place] [address] (two) Medical times Branch daily. irbesartan 2019-06 Yes 300mg Take 300 Un [place] 300 mg 0-08 mg by ity of tablet 15:25: mouth at [place] [address] bedtime. Medical Branch diltiazem 2019-06 Yes 180mg [...] billion daily. cell Cap Cranberry 2019-06 Yes [id number] 4200mg Take 4,200 [facility] 400 mg Cap 0-08 mg by ity of 15:25: mouth. [place] [address] [facility] Branch Cetirizine 2019-06 Yes Take by [facility] (ZYRTEC) 10 0-08 mouth. ity of mg capsule 15:25: [place] [address] [facility] Magnesium 2019-06 Yes 1{tbl} Take 1 [facility] ers 250 mg Tab 0-08 tablet by ity of 15:25: mouth 2 [place] 10 (two) Medical times Branch daily. irbesartan 2019-06 Yes 300mg Take 300 Un [place] 300 mg 0-08 mg by ity of tablet 15:25: mouth at [place] 10 bedtime. Medical Branch diltiazem 2019-06 Yes [...] billion daily. cell Cap Cranberry 2019-06 Yes [id number] 4200mg Take 4,200 [facility] 400 mg Cap 0-08 mg by ity of 15:25: mouth. [place] [address] [facility] Cetirizine 2019-06 Yes Take by [facility] ers (ZYRTEC) 10 0-08 mouth. ity of mg capsule 15:25: [place] [address] [facility] Magnesium 2019-06 Yes 1{tbl} Take 1 [facility] ers 250 mg Tab 0-08 tablet by ity of 15:25: mouth 2 [place] 10 (two) Medical times Branch daily. irbesartan 2019-06 Yes 300mg Take 300 Un [place] 300 mg 0-08 mg by ity of tablet 15:25: mouth at [place] 10 bedtime. Medical Branch diltiazem 2019-06 Yes [...] billion daily. cell Cap Cranberry 2019- Yes [id number] 4200mg Take 4,200 [facility] 400 mg Cap 0-08 mg by ity of 15:25: mouth. [place] [address] [facility] Cetirizine 2019-06 Yes Take by [facility] ers (ZYRTEC) 10 0-08 mouth. ity of mg capsule 15:25: [place] [address] [facility] Magnesium 2019-06 Yes 1{tbl} Take 1 [facility] 250 mg Tab 0-08 tablet by ity of 15:25: mouth 2 [place] 10 (two) Medical times Branch daily. irbesartan 2019-06 Yes 300mg Take 300 Un [place] 300 mg 0-08 mg by ity of tablet 15:25: mouth at [place] 10 bedtime. Medical Branch diltiazem 2019-06 Yes [...] billion daily. cell Cap Cranberry 2019-06 Yes [id number] 4200mg Take 4,200 [facility] 400 mg Cap 0-08 mg by ity of 15:25: mouth. [place] [address] [facility] Cetirizine 2019-06 Yes Take by [facility] (ZYRTEC) 10 0-08 mouth. ity of mg capsule 15:25: [place] [address] [facility] Magnesium 2019-06 Yes 1{tbl} Take 1 [facility] 250 mg Tab 0-08 tablet by ity of 15:25: mouth 2 [place] 10 (two) Medical times Branch daily. irbesartan 2019-06 Yes 300mg Take 300 Un [place] 300 mg 0-08 mg by ity of tablet 15:25: mouth at [place] 10 bedtime. Medical Branch diltiazem 2019-06 Yes [...] 3 billion daily. cell Cap Cranberry Yes [id number] 400mg Take 400 [facility] 400 mg Cap 7-02 mg by ity of 23:15: mouth. [place] [address] [facility] Branch melatonin Yes 10mg Take 10 mg Un sar[place] 10 mg Cap 7-02 by mouth ity of 23:15: at [place] 05 bedtime. Medical Branch Cetirizine Yes Take by [facility] ([facility]) 10 7-02 mouth. ity of mg capsule 23:15: Medical Branch Magnesium 2018- Yes 1{tbl} Take 1 [facility] ers 250 [...] 3 billion daily. cell Cap Cranberry Yes [id number] 400mg Take 400 [facility] 400 mg Cap 7-02 mg by ity of 23:15: mouth. Medical Branch melatonin Yes 10mg Take 10 mg Un sar[place] 10 mg Cap 7-02 by mouth ity of 23:15: at [place] 05 bedtime. Medical Branch Cetirizine Yes Take by [facility] ([facility]) 10 7-02 mouth. ity of mg capsule 23:15: Medical Branch Magnesium Yes 1{tbl} Take 1 [facility] ers 250 mg Tab 7-02 tablet by ity of 23:15: mouth 2 05 (two) Medical times Branch daily. irbesartan Yes 300mg Take 300 Un [place] 300 mg 7-02 mg by ity of tablet 23:15: mouth at [place] 05 bedtime. Medical Branch diltiazem Yes 180mg Take 180 Uni vers XR 180 mg 7-02 mg by ity of 24 hr 23:15: mouth [place] capsule 05 daily. Medical Branch lactobacill Yes 1{tbl} Take 1 Un sarah us 7-02 tablet by ity of combination 23:15: mouth 2 [place] no.4 05 (two) Medical (PROBIOTIC) times Branch 3 billion daily. cell Cap ciprofloxac 2018-0 Yes [id number] 500mg Take 1 [facility] in HCl 5-30 tablet by ity of (CIPRO) 500 00:00: mouth [place] mg tablet 00 daily. Medical Branch ciprofloxac 2018-0 Yes [id number] 500mg Take 1 [facility] in HCl 5-30 tablet by ity of (CIPRO) 500 00:00: mouth [place] mg tablet 00 daily. Medical Branch ciprofloxac 2018-0 Yes [id number] 500mg Take 1 [facility] in HCl 5-30 tablet by ity of (CIPRO) 500 00:00: mouth [place] mg tablet 00 daily. Medical Branch ciprofloxac 2018-0 Yes [id number] 500mg Take 1 [facility] in HCl 5-30 tablet by ity of (CIPRO) 500 00:00: mouth [place] mg tablet 00 daily. Medical Branch ciprofloxac 2018- Yes [id number] 500mg Take 1 [facility] in HCl 5-30 tablet by ity of (CIPRO) 500 00:00: mouth [place] mg tablet 00 daily. Medical Branch ciprofloxac 2018- Yes [id number] 500mg Take 1 [facility] in HCl 5-30 tablet by ity of (CIPRO) 500 00:00: mouth [place] mg tablet 00 daily. Medical Branch ciprofloxac 2018-0 Yes [id number] 500mg Take 1 [facility] in HCl 5-30 tablet by ity of (CIPRO) 500 00:00: mouth [place] mg tablet 00 daily. Medical Branch ciprofloxac 2018-0 Yes [id number] 500mg Take 1 [facility] in HCl 5-30 tablet by ity of (CIPRO) 500 00:00: mouth [place] mg tablet 00 daily. Medical Branch ciprofloxac 2018-0 Yes [id number] 500mg Take 1 [facility] in HCl 5-30 tablet by ity of (CIPRO) 500 00:00: mouth [place] mg tablet 00 daily. Medical Branch ciprofloxac 2018-0 Yes [id number] 500mg Take 1 [facility] in HCl 5-30 tablet by ity of (CIPRO) 500 00:00: mouth [place] mg tablet 00 daily. Medical Branch ciprofloxac 2018-0 Yes [id number] 500mg Take 1 [facility] in HCl 5-30 tablet by ity of (CIPRO) 500 00:00: mouth [place] mg tablet 00 daily. Medical Branch ciprofloxac 2019-0 Yes [id number] 500mg Take 1 [facility] in HCl 5-30 tablet by ity of (CIPRO) 500 00:00: mouth [place] mg tablet 00 daily. Medical Branch ciprofloxac 2019-0 Yes [id number] 500mg Take 1 [facility] in HCl 5-30 tablet by ity of (CIPRO) 500 00:00: mouth [place] mg tablet 00 daily. Medical Branch ciprofloxac 2018-0 Yes [id number] 500mg Take 1 [facility] in HCl 5-30 tablet by ity of (CIPRO) 500 00:00: mouth [place] mg tablet 00 daily. Medical Branch ciprofloxac 2018-0 Yes [id number] 500mg Take 1 [facility] in HCl 5-30 tablet by ity of (CIPRO) 500 00:00: mouth [place] mg tablet 00 daily. Medical Branch ciprofloxac 2018-0 Yes [id number] 500mg Take 1 [facility] in HCl 5-30 tablet by ity of (CIPRO) 500 00:00: mouth [place] mg tablet 00 daily. Medical Branch ciprofloxac 2018-0 Yes [id number] 500mg Take 1 [facility] in HCl 5-30 tablet by ity of (CIPRO) 500 00:00: mouth [place] mg tablet 00 daily. Medical Branch ciprofloxac 2018-0 Yes [id number] 500mg Take 1 [facility] in HCl 5-30 tablet by ity of (CIPRO) 500 00:00: mouth [place] mg tablet 00 daily. Medical Branch ciprofloxac 2019-0 Yes [id number] 500mg Take 1 [facility] in HCl 5-30 tablet by ity of (CIPRO) 500 00:00: mouth [place] mg tablet 00 daily. Medical Branch ciprofloxac 2018-0 Yes [id number] 500mg Take 1 [facility] in HCl 5-30 tablet by ity of (CIPRO) 500 00:00: mouth [place] mg tablet 00 daily. Medical Branch ciprofloxac 2018-0 Yes [id number] 500mg Take 1 [facility] in HCl 5-30 tablet by ity of (CIPRO) 500 00:00: mouth [place] mg tablet 00 daily. Medical Branch tamsulosin 2018-0 Yes [id number] .4mg Take 1 [facility] 0.4 mg 24 5- capsule by ity of hr capsule 00:00: mouth at [place] 00 bedtime. Medical Branch tamsulosin 2019-0 Yes [id number] .4mg Take 1 [facility] 0.4 mg 24 5-01 capsule by ity of hr capsule 00:00: mouth at [place] 00 bedtime. Medical Branch tamsulosin 2019-0 Yes [id number] .4mg Take 1 [facility] 0.4 mg 24 5-01 capsule by ity of hr capsule 00:00: mouth at [place] 00 bedtime. Medical Branch tamsulosin 2019-0 Yes [id number] .4mg Take 1 [facility] 0.4 mg 24 5-01 capsule by ity of hr capsule 00:00: mouth at [place] 00 bedtime. Medical Branch tamsulosin 2019-0 Yes [id number] .4mg Take 1 [facility] 0.4 mg 24 5-01 capsule by ity of hr capsule 00:00: mouth at [place] 00 bedtime. Medical Branch tamsulosin 2019-0 Yes [id number] .4mg Take 1 [facility] 0.4 mg 24 5-01 capsule by ity of hr capsule 00:00: mouth at [place] 00 bedtime. Medical Branch tamsulosin 2019-0 Yes [id number] .4mg Take 1 [facility] 0.4 mg 24 5-01 capsule by ity of hr capsule 00:00: mouth at [place] 00 bedtime. Medical Branch tamsulosin 2019-0 Yes [id number] .4mg Take 1 [facility] 0.4 mg 24 5-01 capsule by ity of hr capsule 00:00: mouth at [place] 00 bedtime. Medical Branch tamsulosin 2019-0 Yes [id number] .4mg Take 1 [facility] 0.4 mg 24 5-01 capsule by ity of hr capsule 00:00: mouth at [place] 00 bedtime. Medical Branch tamsulosin 2019-0 Yes [id number] .4mg Take 1 [facility] 0.4 mg 24 5-01 capsule by ity of hr capsule 00:00: mouth at [place] 00 bedtime. Medical Branch tamsulosin 2019-0 Yes [id number] .4mg Take 1 [facility] 0.4 mg 24 5-01 capsule by ity of hr capsule 00:00: mouth at [place] 00 bedtime. Medical Branch tamsulosin 2019-0 Yes [id number] .4mg Take 1 [facility] 0.4 mg 24 5-01 capsule by ity of hr capsule 00:00: mouth at [place] 00 bedtime. Medical Branch tamsulosin 2019-0 Yes [id number] .4mg Take 1 [facility] 0.4 mg 24 5-01 capsule by ity of hr capsule 00:00: mouth at [place] 00 bedtime. Medical Branch tamsulosin 2019-0 Yes [id number] .4mg Take 1 [facility] 0.4 mg 24 5-01 capsule by ity of hr capsule 00:00: mouth at [place] 00 bedtime. Medical Branch tamsulosin 2019-0 Yes [id number] .4mg Take 1 [facility] 0.4 mg 24 5-01 capsule by ity of hr capsule 00:00: mouth at [place] 00 bedtime. Medical Branch tamsulosin 2019-0 Yes [id number] .4mg Take 1 [facility] 0.4 mg 24 5-01 capsule by ity of hr capsule 00:00: mouth at [place] 00 bedtime. Medical Branch tamsulosin 2018-0 Yes [id number] .4mg Take 1 [facility] 0.4 mg 24 5-01 capsule by ity of hr capsule 00:00: mouth at [place] 00 bedtime. Medical Branch tamsulosin 2018-0 Yes [id number] .4mg Take 1 [facility] 0.4 mg 24 5-01 capsule by ity of hr capsule 00:00: mouth at [place] 00 bedtime. Medical Branch tamsulosin 2018-0 Yes [id number] .4mg Take 1 [facility] 0.4 mg 24 5-01 capsule by ity of hr capsule 00:00: mouth at [place] 00 bedtime. Medical Branch tamsulosin 2018-0 Yes [id number] .4mg Take 1 [facility] 0.4 mg 24 5-01 capsule by ity of hr capsule 00:00: mouth at [place] 00 bedtime. Medical Branch tamsulosin 2019-0 Yes [id number] .4mg Take 1 [facility] 0.4 mg 24 [...] MOUTH [place] 00 EVERY Medical NIGHT AT [facility] AT[facility]STA Yes TAKE 1 Univ ers N 80 mg 7-09 TABLET BY ity of tablet 00:00: MOUTH [place] 00 EVERY Medical NIGHT AT [facility] ATORVASTA Yes TAKE 1 [facility] ers N 80 mg 7-09 TABLET BY ity of tablet 00:00: MOUTH [place] 00 EVERY [facility] N 80 mg 7-09 TABLET BY ity of tablet 00:00: MOUTH [place] 00 EVERY Medical NIGHT AT [facility] ATORVASTA Yes TAKE 1 [facility] ers N 80 mg 7-09 TABLET BY ity of tablet 00:00: MOUTH [place] 00 EVERY Medical NIGHT AT [facility] ATORVASTA Yes TAKE 1 [facility] ers N 80 mg 7-09 TABLET BY ity of tablet 00:00: MOUTH [place] 00 EVERY Medical [facility] N 80 mg 7-09 TABLET BY ity of tablet 00:00: MOUTH [place] 00 EVERY Medical NIGHT AT [facility] ATORVASTA Yes TAKE 1 [facility] ers N 80 mg 7-09 TABLET BY ity of tablet 00:00: MOUTH [place] 00 EVERY Medical [facility] 1 [facility] N 80 mg 7-09 TABLET BY ity of tablet 00:00: MOUTH [place] 00 EVERY Medical NIGHT AT [facility] AT[facility]VASTA Yes TAKE 1 [facility] ers N 80 mg 7-09 TABLET BY ity of tablet 00:00: MOUTH [place] 00 EVERY Medical NIGHT AT [facility] Yes TAKE 1 [facility] ers N 80 mg 7-09 TABLET BY ity of tablet 00:00: MOUTH [place] 00 EVERY Medical NIGHT AT [facility] Yes TAKE 1 [facility] ers N 80 mg 7-09 TABLET BY ity of tablet 00:00: MOUTH [place] 00 EVERY Medical NIGHT AT [facility] AT[facility]VASTA Yes TAKE 1 [facility] ers N 80 mg 7-09 TABLET BY ity of tablet 00:00: MOUTH [place] 00 EVERY Medical NIGHT AT [facility] 2018 Yes TAKE 1 [facility] ers N 80 mg 7-09 TABLET BY ity of tablet 00:00: MOUTH [place] 00 EVERY Medical NIGHT AT [place] BEDTIME ATORVASTATI Yes TAKE 1 [facility] ers N 80 mg 7-09 TABLET BY ity of tablet 00:00: MOUTH [place] 00 EVERY Medical NIGHT AT [place] BEDTIME ATORVASTATI Yes TAKE 1 [facility] ers N 80 mg 7-09 TABLET BY ity of tablet 00:00: MOUTH [place] 00 EVERY Medical NIGHT AT [place] [facility] TAKE 1 [facility] N 80 mg 7-09 TABLET BY ity of tablet 00:00: MOUTH [place] 00 EVERY Medical NIGHT AT [place] [facility] Yes TAKE 1 [facility] N 80 mg 7-09 TABLET BY ity of tablet 00:00: MOUTH [place] 00 EVERY Medical NIGHT AT [place] [facility] Yes TAKE 1 [facility] ers N 80 mg 7-09 TABLET BY ity of tablet 00:00: MOUTH [place] 00 EVERY Medical NIGHT AT [facility] Colace 100 2016-06 Yes 100 mg = 1 M emoria mg oral 1-28 caps, l capsule 21:25: Oral, BID Chelsie nn [place] 2016-06 Yes See Memoria mg-325 mg 1-28 Instructio l oral tablet 21:25: ns, PRN Her alex[place] 00 for pain, 1 tabs Oral q4-6hr, # 40 tabs, 0 Refill(s) Colace 100 2016-06 Yes 100 mg = 1 M emoria mg oral 1-28 caps, l capsule 21:25: Oral, BID Chelsie nn [place] 2016-06 Yes See Memoria mg-325 mg 1-28 Instructio l oral tablet 21:25: ns, PRN Her a[place] 00 for pain, 1 tabs Oral q4-6hr, # 40 tabs, 0 Refill(s) NS bolus 2016-06 No 250 mL, Memori a 250 mL 1-28 IV, BOLUS, l 19:24: other (see Romero comment), start date 04/29/17 13:24:00 DENTAL SERVICE CHIEF NS bolus 2016-06 No 250 mL, Memori a 250 mL 1-28 IV, BOLUS, l 19:24: other (see Romero comment), start date 04/29/17 13:24:00 DENTAL SERVICE CHIEF multivitami 2016-06 No 1 tabs, Mem oria n with 1-28 Tab, Oral, l minerals 15:00: Daily, first dose 04/29/17 9:00:00 DENTAL SERVICE CHIEF aspirin 2016-06 No 325 mg = 1 Pradeep bentley 1-28 tabs, Tab, l 15:00: Oral, BID, first dose 04/29/17 9:00:00 DENTAL SERVICE CHIEF valsartan 2016-06 No 320 mg, Memor ia 1-28 Tab, Oral, l 15:00: Daily, first dose 04/29/17 9:00:00 DENTAL SERVICE CHIEF, Patient's Own Meds Cartia XT 2016-06 No 240 mg, Memor ia 240 mg/24 1-28 Misc, l hours oral 15:00: Oral, Arturo n capsule, Daily, extended first dose release 04/29/17 9:00:00 DENTAL SERVICE CHIEF, Patient's Own Meds Zyrtec 2016-06 No 10 mg = 1 Memori a 1-28 tabs, Tab, l 15:00: Oral, [place] Daily, first dose 04/29/17 9:00:00 DENTAL SERVICE CHIEF multivitami 2016-06 No 1 tabs, Mem oria n with -28 Tab, Oral, l minerals 15:00: Daily, first dose 04/29/17 9:00:00 DENTAL SERVICE CHIEF aspirin 2016-06 No 325 mg = 1 Pradeep bentley -28 tabs, Tab, l 15:00: Oral, BID, first dose 04/29/17 9:00:00 DENTAL SERVICE CHIEF valsartan 2016-06 No 320 mg, Memor ia -28 Tab, Oral, l 15:00: Daily, first dose 04/29/17 9:00:00 DENTAL SERVICE CHIEF, Patient's Own Meds Cartia XT 2016-06 No 240 mg, Memor ia 240 mg/24 1-28 Misc, l hours oral 15:00: Oral, Arturo n capsule, Daily, extended first dose release 04/29/17 9:00:00 DENTAL SERVICE CHIEF, Patient's Own Meds Zyrtec 2016-06 No 10 mg = 1 Memori a -28 tabs, Tab, l 15:00: Oral, [place] Daily, first dose 04/29/17 9:00:00 DENTAL SERVICE CHIEF Welchol 2016-06 No 625 mg, Memoria 1-28 Tab, Oral, l 14:00: qAM, first Romero dose 04/29/17 8:00:00 DENTAL SERVICE CHIEF, Patient's Own Meds Welchol 2016-06 No 625 mg, Memoria 1-28 Tab, Oral, l 14:00: qAM, first [place] dose 04/29/17 8:00:00 DENTAL SERVICE CHIEF, Patient's Own Meds Colace 2016-06 No 100 mg = 1 Memor ia 1-28 caps, Cap, l 03:00: Oral, BID, [place] 00 first dose 04/28/17 21:00:00 DENTAL SERVICE CHIEF sotalol 2016-06 No 80 mg = 1 Memor ia 1-28 tabs, Tab, l 03:00: Oral, BID, [place] first dose 04/28/17 21:00:00 DENTAL SERVICE CHIEF, Patient's Own Meds atorvastati 2016-06 No 80 mg, Pradeep bentley n 1-28 Tab, Oral, l 03:00: qHS, first [place] 00 dose 04/28/17 21:00:00 DENTAL SERVICE CHIEF, Patient's Own Meds Colace 2016-06 No 100 mg = 1 Memor ia 1-28 caps, Cap, l 03:00: Oral, BID, [place] 00 first dose 04/28/17 21:00:00 DENTAL SERVICE CHIEF sotalol 2016-06 No 80 mg = 1 Memor ia 1-28 tabs, Tab, l 03:00: Oral, BID, Romero first dose 04/28/17 21:00:00 DENTAL SERVICE CHIEF, Patient's Own Meds atorvastati 2016-06 No 80 mg, Pradeep bentley n 1-28 Tab, Oral, l 03:00: qHS, first dose 04/28/17 21:00:00 DENTAL SERVICE CHIEF, Patient's Own Meds ferrous 2016-06 No 325 mg = 1 Pradeep bentley sulfate 1-28 tabs, Tab, l 01:00: Oral, [place] TIDPC, first dose 04/28/17 19:00:00 DENTAL SERVICE CHIEF ferrous 2016-06 No 325 mg = 1 Pradeep bentley sulfate 1-28 tabs, Tab, l 01:00: Oral, Romero TIDPC, first dose 04/28/17 19:00:00 DENTAL SERVICE CHIEF Clindamycin 2016-06 No 600 mg, Mem oria 06-29 Soln-IV, l 00:30: IV Romero 00 Piggyback, q8hr, infuse over 30 minutes, order duration: 3 doses, first dose 04/28/17 18:30:00 DENTAL SERVICE CHIEF, stop date 04/29/17 18:29:00 DENTAL SERVICE CHIEF, Prophylaxi s Clindamycin 2016-06 No 600 mg, Mem oria 06-29 Soln-IV, l 00:30: IV [place] 00 Piggyback, q8hr, infuse over 30 minutes, order duration: 3 doses, first dose 04/28/17 18:30:00 DENTAL SERVICE CHIEF, stop date 04/29/17 18:29:00 DENTAL SERVICE CHIEF, Prophylaxi s Cefazolin 2016-06 No 1 gm, Memoria 06-28 Soln-IV, l 23:00: IV [place] 00 Piggyback, q8hr, infuse over 30 minutes, order duration: 3 doses, first dose 04/28/17 17:00:00 DENTAL SERVICE CHIEF, stop date 04/29/17 16:59:00 DENTAL SERVICE CHIEF, Prophylaxi s Cefazolin 2016-06 No 1 gm, Memoria 06-28 Soln-IV, l 23:00: IV [place] 00 Piggyback, q8hr, infuse over 30 minutes, order duration: 3 doses, first dose 04/28/17 17:00:00 DENTAL SERVICE CHIEF, stop date 04/29/17 16:59:00 DENTAL SERVICE CHIEF, Prophylaxi s Aspirin 81 2016-06 No 81 mg = 1 Me moria MG Oral 1-27 tabs, l Tablet 21:36: Oral, BID, Chelsie nn 00 take for 6 weeks Colace 100 2016-06 Yes 100 mg = 1 M emoria mg oral 1-27 caps, l capsule 21:36: Oral, BID Chelsie nn 00 [place] 10 2016-06 Yes See Memoria mg-325 mg 1-27 Instructio l oral tablet 21:36: ns, PRN Her alexander 00 for pain, 1 tabs Oral q4-6hr, # 40 tabs, 0 Refill(s) Aspirin 81 2016-06 No 81 mg = 1 Me moria MG Oral 1-27 tabs, l Tablet 21:36: Oral, BID, Chelsie nn 00 take for 6 weeks Colace 100 2016-06 Yes 100 mg = 1 M emoria mg oral 1-27 caps, l capsule 21:36: Oral, BID Chelsie nn 00 [place] 10 2016-06 Yes See Memoria mg-325 mg -27 Instructio l oral tablet 21:36: ns, PRN Her alex[place] 00 for pain, 1 tabs Oral q4-6hr, # 40 tabs, 0 Refill(s) Saline [place] 2016-06 No 10 mL, Pradeep bentley Flush -27 Soln, IV l 20:00: Push, Romero 00 q8hr, first dose 04/28/17 14:00:00 DENTAL SERVICE CHIEF Saline Lock 2016-06 No 10 mL, Pradeep bentley Flush -27 Soln, IV l 20:00: Push, Romero 00 q8hr, first dose 04/28/17 14:00:00 DENTAL SERVICE CHIEF Bupivacaine 2016-06 No 300 mL, Mem oria 0.25% 300 1-27 Nerve l mL pump 300 19:25: Block, 5 He rmann mL 00 mL/hr, start date 04/28/17 13:25:00 DENTAL SERVICE CHIEF Bupivacaine 2016-06 No 300 mL, Mem oria 0.25% 300 1-27 Nerve l mL pump 300 19:25: Block, 5 He rmann mL 00 mL/hr, start date 04/28/17 13:25:00 DENTAL SERVICE CHIEF HYDROmorpho 2016-06 No 0.5 mg = Me moria ne 1-27 0.25 mL, l 19:24: Injection, [place] 00 IV Push, q6hr PRN for breakthrou gh pain, first dose 04/28/17 13:24:00 DENTAL SERVICE CHIEF ondansetron 2016-06 No 4 mg = 2 Me moria 1-27 mL, l 19:24: Injection, [place] 00 IV Push, q4hr PRN for nausea/vom iting, first dose 04/28/17 13:24:00 DENTAL SERVICE CHIEF promethazin 2016-06 No 25 mg = 1 M emoria e 1-27 mL, l 19:24: Injection, [place] 00 IM, q4hr PRN for severe nausea, first dose 04/28/17 13:24:00 DENTAL SERVICE CHIEF [place] 10 2016-06 No Notes: Max Mem oria mg-325 mg 1-27 4gm l oral tablet 19:24: acetaminop [place] 00 hen in 24 hours diphenhydrA 2016-06 No 25 mg = 1 M emoria MINE 06-28 caps, Cap, l 19:24: Oral, q8hr [place] 00 PRN for itching, first dose 04/28/17 13:24:00 DENTAL SERVICE CHIEF HYDROmorpho 2016-06 No 0.5 mg = Me moria ne - 0.25 mL, l 19:24: Injection, 00 IV Push, q6hr PRN for breakthrou gh pain, first dose 04/28/17 13:24:00 DENTAL SERVICE CHIEF ondansetron 2016-06 No 4 mg = 2 Me moria -27 mL, l 19:24: Injection, IV Push, q4hr PRN for nausea/vom iting, first dose 04/28/17 13:24:00 DENTAL SERVICE CHIEF promethazin 2016-06 No 25 mg = 1 M emoria e 27 mL, l 19:24: Injection, 00 IM, q4hr PRN for severe nausea, first dose 04/28/17 13:24:00 DENTAL SERVICE CHIEF [place] 10 2016-06 No Notes: Max Mem oria mg-325 mg 1-27 4gm l oral tablet 19:24: acetaminop hen in 24 hours diphenhydrA 2016-06 No 25 mg = 1 M emoria MINE 06-28 caps, Cap, l 19:24: Oral, q8hr [place]ero 00 PRN for itching, first dose 04/28/17 13:24:00 DENTAL SERVICE CHIEF Flu Shot PF 2016-06 No 0.5 mL, Mem oria 06-28 Injection, l 19:22: IM, Once PRN for other (see comment), first dose 04/28/17 13:22:00 DENTAL SERVICE CHIEF bisacodyl 2016-06 No 10 mg = 2 Mem oria 06-28 tabs, l 19:22: Tab-DR, Oral, Daily PRN for constipati on, first dose 04/28/17 13:22:00 DENTAL SERVICE CHIEF LR 1,000 mL 2016-06 No 1,000 mL, M emoria 06-28 IV, 125 l 19:22: mL/hr, start date 04/28/17 13:22:00 DENTAL SERVICE CHIEF Saline Lock 2016-06 No 10 mL, Pradeep bentley Flush 06-28 Soln, IV l 19:22: Push, As Indicated PRN for flush, first dose 04/28/17 13:22:00 DENTAL SERVICE CHIEF Flu Shot PF 2016-06 No 0.5 mL, Mem oria 06-28 Injection, l 19:22: IM, Once PRN for other (see comment), first dose 04/28/17 13:22:00 DENTAL SERVICE CHIEF bisacodyl 2016-06 No 10 mg = 2 Mem oria 06-28 tabs, l 19:22: Tab-DR, Oral, Daily PRN for constipati on, first dose 04/28/17 13:22:00 DENTAL SERVICE CHIEF LR 1,000 mL 2016-06 No 1,000 mL, M emoria 06-28 IV, 125 l 19:22: mL/hr, start date 04/28/17 13:22:00 DENTAL SERVICE CHIEF Saline Lock 2016-06 No 10 mL, Pradeep bentley Flush 06-28 Soln, IV l 19:22: Push, As Indicated PRN for flush, first dose 04/28/17 13:22:00 DENTAL SERVICE CHIEF Lactated 2016-06 No IV, start Pradeep bentley Ringers 06-28 date l Injection 19:08: 04/28/17 Herm 13:08:00 DENTAL SERVICE CHIEF, stop date 04/28/17 13:08:00 DENTAL SERVICE CHIEF promethazin 2016-06 No 12.5 mg = M emoria e 06-28 0.5 mL, l 19:08: Injection, IM, Once PRN for vomiting, first dose 04/28/17 13:08:00 DENTAL SERVICE CHIEF ondansetron 2016-06 No 8 mg = 1 Me moria 06-28 tabs, l 19:08: Tab-Dis, Oral, Once PRN for nausea, first dose 04/28/17 13:08:00 DENTAL SERVICE CHIEF Dilaudid 2016-06 No 0.2 mg = Memor ia 06-28 0.1 mL, l 19:08: Injection, IV Push, q10min PRN for pain severe (7-10), first dose 04/28/17 13:08:00 DENTAL SERVICE CHIEF Saline Lock 2016-06 No 10 mL, Pradeep bentley Flush 06-28 Soln, IV l 19:08: Push, As Indicated PRN for flush, first dose 04/28/17 13:08:00 DENTAL SERVICE CHIEF Lactated 2016-06 No IV, start Pradeep bentley Ringers 06-28 date l Injection 19:08: 04/28/17 Herm anshul 00 13:08:00 DENTAL SERVICE CHIEF, stop date 04/28/17 13:08:00 DENTAL SERVICE CHIEF promethazin 2016-06 No 12.5 mg = M emoria e 06-28 0.5 mL, l 19:08: Injection, IM, Once PRN for vomiting, first dose 04/28/17 13:08:00 DENTAL SERVICE CHIEF ondansetron 2016-06 No 8 mg = 1 Me moria 06-28 tabs, l 19:08: Tab-Dis, Oral, Once PRN for nausea, first dose 04/28/17 13:08:00 DENTAL SERVICE CHIEF Dilaudid 2016-06 No 0.2 mg = Memor ia 06-28 0.1 mL, l 19:08: Injection, IV Push, q10min PRN for pain severe (7-10), first dose 04/28/17 13:08:00 DENTAL SERVICE CHIEF Saline Lock 2016-06 No 10 mL, Pradeep bentley Flush 06-28 Soln, IV l 19:08: Push, As Indicated PRN for flush, first dose 04/28/17 13:08:00 DENTAL SERVICE CHIEF ondansetron 2016-06 No 4 mg = 2 Me moria 1-27 mL, l 18:46: Injection, Romero 00 IV, Once, first dose 04/28/17 12:46:00 DENTAL SERVICE CHIEF, stop date 04/28/17 12:46:00 DENTAL SERVICE CHIEF ondansetron 2016-06 No 4 mg = 2 Me moria 1-27 mL, l 18:46: Injection, [place] 00 IV, Once, first dose 04/28/17 12:46:00 DENTAL SERVICE CHIEF, stop date 04/28/17 12:46:00 DENTAL SERVICE CHIEF ePHEDrine 2016-06 No 10 mg = Memor ia 27 0.2 mL, l 18:21: Injection, Romero 00 IV, Once, first dose 04/28/17 12:21:00 DENTAL SERVICE CHIEF, stop date 04/28/17 12:21:00 DENTAL SERVICE CHIEF ePHEDrine 2016-06 No 10 mg = Memor ia 1-27 0.2 mL, l 18:21: Injection, [place] 00 IV, Once, first dose 04/28/17 12:21:00 DENTAL SERVICE CHIEF, stop date 04/28/17 12:21:00 DENTAL SERVICE CHIEF ePHEDrine 2017- No 5 mg = 0.1 Me moria 1-27 mL, l 18:10: Injection, Romero 00 IV, Once, first dose 04/28/17 12:10:00 DENTAL SERVICE CHIEF, stop date 04/28/17 12:10:00 DENTAL SERVICE CHIEF ePHEDrine 2017- No 5 mg = 0.1 Me moria 1-27 mL, l 18:10: Injection, [place] 00 IV, Once, first dose 04/28/17 12:10:00 DENTAL SERVICE CHIEF, stop date 04/28/17 12:10:00 DENTAL SERVICE CHIEF ePHEDrine 2017- No 5 mg = 0.1 Me moria 1-27 mL, l 18:05: Injection, [place] 00 IV, Once, first dose 04/28/17 12:05:00 DENTAL SERVICE CHIEF, stop date 04/28/17 12:05:00 DENTAL SERVICE CHIEF ePHEDrine 2017- No 5 mg = 0.1 Me moria 1-27 mL, l 18:05: Injection, Romero 00 IV, Once, first dose 04/28/17 12:05:00 DENTAL SERVICE CHIEF, stop date 04/28/17 12:05:00 DENTAL SERVICE CHIEF HYDROmorpho 2017- No 0.25 mg = Marya emoria ne 1-27 0.13 mL, l 17:56: Injection, [place] 00 IV, Once, first dose 04/28/17 11:56:00 DENTAL SERVICE CHIEF, stop date 04/28/17 11:56:00 DENTAL SERVICE CHIEF HYDROmorpho 2017- No 0.25 mg = Marya emoria ne 1-27 0.13 mL, l 17:56: Injection, Romero 00 IV, Once, first dose 04/28/17 11:56:00 DENTAL SERVICE CHIEF, stop date 04/28/17 11:56:00 DENTAL SERVICE CHIEF HYDROmorpho 2017- No 0.25 mg = Marya emoria ne 1-27 0.13 mL, l 17:24: Injection, Romero 00 IV, Once, first dose 04/28/17 11:24:00 DENTAL SERVICE CHIEF, stop date 04/28/17 11:24:00 DENTAL SERVICE CHIEF HYDROmorpho 2017- No 0.25 mg = M emoria ne -27 0.13 mL, l 17:24: Injection, Romero 00 IV, Once, first dose 04/28/17 11:24:00 DENTAL SERVICE CHIEF, stop date 04/28/17 11:24:00 DENTAL SERVICE CHIEF Misc 2016- No 1,000 mL, Memoria Medication 06-28 Soln-IV, l 17:16: IV, Once, first dose 04/28/17 11:16:00 DENTAL SERVICE CHIEF, stop date 04/28/17 11:16:00 DENTAL SERVICE CHIEF Misc 2016- No 1,000 mL, Memoria Medication 06-28 Soln-IV, l 17:16: IV, Once, first dose 04/28/17 11:16:00 DENTAL SERVICE CHIEF, stop date 04/28/17 11:16:00 DENTAL SERVICE CHIEF acetaminoph 2017- No 1,000 mg, M emoria en 06-28 Soln-IV, l 17:11: IV Romero 00 Piggyback, Once, first dose 04/28/17 11:11:00 DENTAL SERVICE CHIEF, stop date 04/28/17 11:11:00 DENTAL SERVICE CHIEF acetaminoph 2017- No 1,000 mg, M emoria en 06-28 Soln-IV, l 17:11: IV Romero 00 Piggyback, Once, first dose 04/28/17 11:11:00 DENTAL SERVICE CHIEF, stop date 04/28/17 11:11:00 DENTAL SERVICE CHIEF HYDROmorpho 2017- No 0.25 mg = M emoria ne -27 0.13 mL, l 17:05: Injection, Romero 00 IV, Once, first dose 04/28/17 11:05:00 DENTAL SERVICE CHIEF, stop date 04/28/17 11:05:00 DENTAL SERVICE CHIEF HYDROmorpho 2016- No 0.25 mg = M emoria ne -27 0.13 mL, l 17:05: Injection, [place] 00 IV, Once, first dose 04/28/17 11:05:00 DENTAL SERVICE CHIEF, stop date 04/28/17 11:05:00 DENTAL SERVICE CHIEF midazolam 2017- No 0.5 mg = Pradeep bentley 06-28 0.5 mL, l 17:03: Injection, Romero 00 IV, Once, first dose 04/28/17 11:03:00 DENTAL SERVICE CHIEF, stop date 04/28/17 11:03:00 DENTAL SERVICE CHIEF fentaNYL 2016-06 No 25 mcg = Memor ia 1-27 0.5 mL, l 17:03: Injection, Romero 00 IV, Once, first dose 04/28/17 11:03:00 DENTAL SERVICE CHIEF, stop date 04/28/17 11:03:00 DENTAL SERVICE CHIEF midazolam 2016-06 No 0.5 mg = Pradeep bentley 1-27 0.5 mL, l 17:03: Injection, [place] 00 IV, Once, first dose 04/28/17 11:03:00 DENTAL SERVICE CHIEF, stop date 04/28/17 11:03:00 DENTAL SERVICE CHIEF fentaNYL 2016- No 25 mcg = Memor ia 1-27 0.5 mL, l 17:03: Injection, [place] 00 IV, Once, first dose 04/28/17 11:03:00 DENTAL SERVICE CHIEF, stop date 04/28/17 11:03:00 DENTAL SERVICE CHIEF clindamycin 2016-06 No 900 mg, Mem oria 1-27 Soln-IV, l 16:59: IV, Once, [place] 00 first dose 04/28/17 10:59:00 DENTAL SERVICE CHIEF, stop date 04/28/17 10:59:00 DENTAL SERVICE CHIEF clindamycin 2016-06 No 900 mg, Mem oria 1-27 Soln-IV, l 16:59: IV, Once, Romero 00 first dose 04/28/17 10:59:00 DENTAL SERVICE CHIEF, stop date 04/28/17 10:59:00 DENTAL SERVICE CHIEF ePHEDrine 2016-06 No 10 mg = Memor ia 1-27 0.2 mL, l 16:53: Injection, Romero 00 IV, Once, first dose 04/28/17 10:53:00 DENTAL SERVICE CHIEF, stop date 04/28/17 10:53:00 DENTAL SERVICE CHIEF ePHEDrine 2016-06 No 10 mg = Memor ia 1-27 0.2 mL, l 16:53: Injection, [place] 00 IV, Once, first dose 04/28/17 10:53:00 DENTAL SERVICE CHIEF, stop date 04/28/17 10:53:00 DENTAL SERVICE CHIEF ePHEDrine 2016-06 No 10 mg = Memor ia 1-27 0.2 mL, l 16:49: Injection, Romero 00 IV, Once, first dose 04/28/17 10:49:00 DENTAL SERVICE CHIEF, stop date 04/28/17 10:49:00 DENTAL SERVICE CHIEF ePHEDrine 2016- No 10 mg = Memor ia 1-27 0.2 mL, l 16:49: Injection, [place] 00 IV, Once, first dose 04/28/17 10:49:00 DENTAL SERVICE CHIEF, stop date 04/28/17 10:49:00 DENTAL SERVICE CHIEF HYDROmorpho 2016-06 No 0.25 mg = M emoria ne 1-27 0.13 mL, l 16:45: Injection, Romero 00 IV, Once, first dose 04/28/17 10:45:00 DENTAL SERVICE CHIEF, stop date 04/28/17 10:45:00 DENTAL SERVICE CHIEF HYDROmorpho 2016-06 No 0.25 mg = Marya emoria ne 1-27 0.13 mL, l 16:45: Injection, Romero 00 IV, Once, first dose 04/28/17 10:45:00 DENTAL SERVICE CHIEF, stop date 04/28/17 10:45:00 DENTAL SERVICE CHIEF dexamethaso 2016-06 No 8 mg = 2 Me moria ne 1-27 mL, l 16:42: Injection, Romero 00 IV, Once, first dose 04/28/17 10:42:00 DENTAL SERVICE CHIEF, stop date 04/28/17 10:42:00 DENTAL SERVICE CHIEF dexamethaso 2016-06 No 8 mg = 2 Me moria ne 1-27 mL, l 16:42: Injection, Romero 00 IV, Once, first dose 04/28/17 10:42:00 DENTAL SERVICE CHIEF, stop date 04/28/17 10:42:00 DENTAL SERVICE CHIEF lidocaine 2016-06 No 2 mL, Memoria 1-27 Injection, l 16:35: IV, Once, first dose 04/28/17 10:35:00 DENTAL SERVICE CHIEF, stop date 04/28/17 10:35:00 DENTAL SERVICE CHIEF propofol 2016-06 No 100 mg = Memor ia 1-27 10 mL, l 16:35: Emulsion, [place] 00 IV, Once, first dose 04/28/17 10:35:00 DENTAL SERVICE CHIEF, stop date 04/28/17 10:35:00 DENTAL SERVICE CHIEF lidocaine 2016-06 No 2 mL, Memoria 1-27 Injection, l 16:35: IV, Once, Romero 00 first dose 04/28/17 10:35:00 DENTAL SERVICE CHIEF, stop date 04/28/17 10:35:00 DENTAL SERVICE CHIEF propofol 2016-06 No 100 mg = Memor ia 1-27 10 mL, l 16:35: Emulsion, [place] 00 IV, Once, first dose 04/28/17 10:35:00 DENTAL SERVICE CHIEF, stop date 04/28/17 10:35:00 DENTAL SERVICE CHIEF fentaNYL 2016-06 No 25 mcg = Memor ia 1-27 0.5 mL, l 16:25: Injection, [place] 00 IV, Once, first dose 04/28/17 10:25:00 DENTAL SERVICE CHIEF, stop date 04/28/17 10:25:00 DENTAL SERVICE CHIEF midazolam 2016-06 No 0.5 mg = Pradeep bentley 1-27 0.5 mL, l 16:25: Injection, [place] 00 IV, Once, first dose 04/28/17 10:25:00 DENTAL SERVICE CHIEF, stop date 04/28/17 10:25:00 DENTAL SERVICE CHIEF fentaNYL 2016-06 No 25 mcg = Memor ia 1-27 0.5 mL, l 16:25: Injection, Romero 00 IV, Once, first dose 04/28/17 10:25:00 DENTAL SERVICE CHIEF, stop date 04/28/17 10:25:00 DENTAL SERVICE CHIEF midazolam 2016-06 No 0.5 mg = Pradeep bentley 1-27 0.5 mL, l 16:25: Injection, [place] 00 IV, Once, first dose 04/28/17 10:25:00 DENTAL SERVICE CHIEF, stop date 04/28/17 10:25:00 DENTAL SERVICE CHIEF fentaNYL 2016-06 No 25 mcg = Memor ia 1-27 0.5 mL, l 15:29: Injection, Romero 00 IV, Once, first dose 04/28/17 9:29:00 DENTAL SERVICE CHIEF, stop date 04/28/17 9:29:00 DENTAL SERVICE CHIEF midazolam 2016-06 No 0.5 mg = Pradeep bentley 1-27 0.5 mL, l 15:29: Injection, [place] 00 IV, Once, first dose 04/28/17 9:29:00 DENTAL SERVICE CHIEF, stop date 04/28/17 9:29:00 DENTAL SERVICE CHIEF fentaNYL 2016-06 No 25 mcg = Memor ia 1-27 0.5 mL, l 15:29: Injection, [place] 00 IV, Once, first dose 04/28/17 9:29:00 DENTAL SERVICE CHIEF, stop date 04/28/17 9:29:00 DENTAL SERVICE CHIEF midazolam 2016- No 0.5 mg = Pradeep bentley 1-27 0.5 mL, l 15:29: Injection, Romero 00 IV, Once, first dose 04/28/17 9:29:00 DENTAL SERVICE CHIEF, stop date 04/28/17 9:29:00 DENTAL SERVICE CHIEF Clindamycin 2016-06 No 900 mg, Mem oria 27 Soln-IV, l 15:00: IV [place] 00 Piggyback, Once, infuse over 30 minutes, first dose 04/28/17 9:00:00 DENTAL SERVICE CHIEF, stop date 04/28/17 9:00:00 DENTAL SERVICE CHIEF, Prophylaxi s Clindamycin 2016-06 No 900 mg, Mem oria 27 Soln-IV, l 15:00: IV Romero Piggyback, Once, infuse over 30 minutes, first dose 04/28/17 9:00:00 DENTAL SERVICE CHIEF, stop date 04/28/17 9:00:00 DENTAL SERVICE CHIEF, Prophylaxi s Lidocaine 2016-06 No 0.2 mL, Memor ia 2% 0.2 mL 06-28 Injection, l IV Start 14:27: Subcutaneo [facility] [[facility]] 00 us, Once PRN for other (see comment), first dose 04/28/17 8:27:00 DENTAL SERVICE CHIEF LR 1,000 mL 2016-06 No 1,000 mL, M emoria 06-28 IV, 30 l 14:27: mL/hr, Romero start date 04/28/17 8:27:00 DENTAL SERVICE CHIEF Lidocaine 2016-06 No 0.2 mL, Memor ia 2% 0.2 mL 06-28 Injection, l IV Start 14:27: Subcutaneo [facility] [[facility]] 00 us, Once PRN for other (see comment), first dose 04/28/17 8:27:00 DENTAL SERVICE CHIEF LR 1,000 mL 2016-06 No 1,000 mL, M emoria 06-28 IV, 30 l 14:27: mL/hr, Romero start date 04/28/17 8:27:00 DENTAL SERVICE CHIEF cyanocobala 2016-06 Yes See Memori a min -14 Instructio l 23:49: ns, PT DID Romero 00 NOT BRING SL, 0 Refill(s), supplement Vitamin D3 2016-06 Yes 1,000 Memori a 1000 intl 06-15 IntUnit = l units oral 23:49: 1 caps, Herm anshul capsule 00 Oral, Daily, PT DID NOT BRING, # 100 caps, 0 Refill(s), supplement cranberry 2016-06 Yes 400 mg =, Mem oria oral -14 Oral, l capsule 23:49: Daily, PT Chelsie nn 00 DID NOT BRING, 0 Refill(s), supplement Vitamin C 2016-06 Yes See Memoria 06-15 Instructio l 23:49: ns, Daily, Romero 00 PT DID NOT BRING, 0 Refill(s), supplement valsartan 2016-06 Yes 320 mg = 1 Me moria 320 mg oral -14 tabs, l tablet 23:49: Oral, [place] 00 Daily, pt inst to not take the am of sx, # 90 tabs, 0 Refill(s), htn Sotalol 2016-06 Yes 80 mg = 1 Memor ia Hydrochlori -14 tabs, l de 80 MG 23:49: Oral, BID, Her alexanedr Oral Tablet 00 pt inst to take the am of sx, # 60 tabs, 0 Refill(s), htn Cartia XT 2016-06 Yes 240 mg = 1 Me moria 240 mg/24 -14 caps, l hours oral 23:49: Oral, Arturo [...] = 1 M emoria n 80 mg -14 tabs, l oral tablet 23:49: Oral, qHS, Romero 00 # 30 tabs, 0 Refill(s), hyperchole sterolemia cyanocobala 2016-06 Yes See Memori a min 14 Instructio l 23:49: ns, PT DID NOT BRING SL, 0 Refill(s), supplement Vitamin D3 2016-06 Yes 1,000 Memori a 1000 intl 06-15 IntUnit = l units oral 23:49: 1 caps, Herm anshul capsule 00 Oral, Daily, PT DID NOT BRING, # 100 caps, 0 Refill(s), supplement cranberry 2016-06 Yes 400 mg =, Mem oria oral -14 Oral, l capsule 23:49: Daily, PT Chelsie nn 00 DID NOT BRING, 0 Refill(s), supplement Vitamin C 2016-06 Yes See Memoria 14 Instructio l 23:49: ns, Daily, [place] PT DID NOT BRING, 0 Refill(s), supplement valsartan 2016-06 Yes 320 mg = 1 Me moria 320 mg oral 1-14 tabs, l tablet 23:49: Oral, [place] 00 Daily, pt inst to not take [...] = 1 M emoria n 80 mg -14 tabs, l oral tablet 23:49: Oral, qHS, Romero 00 # 30 tabs, 0 Refill(s), hyperchole sterolemia Zyrtec 2016-06 Yes 10 mg, Memoria -14 Oral, l 22:52: Daily, 0 [place] 00 Refill(s), seasonal allergy lactobacill 2016-06 Yes 1 cap, Pradeep bentley us -14 Daily, l acidophilus 22:52: [facility] [place] probiotic supplement OTC, 0 Refill(s), IBS Melatonin 2016-06 Yes 10 mg, Memori a -14 Oral, qHS, l 22:52: PT DID NOT [place] 00 BRING, 0 Refill(s), sleep Zyrtec 2016-06 Yes 10 mg, Memoria 1-14 Oral, l 22:52: Daily, 0 [place] 00 Refill(s), seasonal allergy lactobacill 2016-06 Yes [...] Chelsie nn [Xarelto] 00 0 Refill(s), afib rivaroxaban 2016-06 Yes 20 mg = 1 M emoria 20 MG Oral 1-14 tabs, l Tablet 22:49: Oral, qPM, Chelsie nn [Xarelto] 00 0 Refill(s), afib [place] [id number] Yes [id number] TAKE 1 [facility] mg tablet 9-05 TABLET BY ity o f 00:00: MOUTH [place] 00 EVERY DAY. [facility] 625 Yes [id number] TAKE 1 [facility] mg tablet 9-05 TABLET BY ity o f 00:00: MOUTH [place] 00 EVERY DAY. [facility] 625 Yes [id number] TAKE 1 [facility] mg tablet 9-05 TABLET BY ity o f 00:00: MOUTH [place] 00 EVERY DAY. [facility] 625 Yes [id number] TAKE 1 [facility] mg tablet 9-05 TABLET BY ity o f 00:00: MOUTH [place] 00 EVERY DAY. [facility] 625 Yes [id number] TAKE 1 [facility] mg tablet 9-05 TABLET BY ity o f 00:00: MOUTH [place] 00 EVERY DAY. [facility] 625 Yes [id number] TAKE 1 [facility] mg tablet 9-05 TABLET BY ity o f 00:00: MOUTH [place] 00 EVERY DAY. [facility] 625 Yes [id number] TAKE 1 [facility] mg tablet 9-05 TABLET BY ity o f 00:00: MOUTH [place] 00 EVERY DAY. [facility] 625 Yes [id number] TAKE 1 [facility] mg tablet 9-05 TABLET BY ity o f 00:00: MOUTH [place] 00 EVERY DAY. [facility] 625 2017-0 Yes [id number] TAKE 1 [facility] mg tablet 9-05 TABLET BY ity o f 00:00: MOUTH [place] 00 EVERY DAY. [facility] 625 2016-0 Yes [id number] TAKE 1 [facility] mg tablet 9-05 TABLET BY ity o f 00:00: MOUTH [place] 00 EVERY DAY. [facility] 625 2016-0 Yes [id number] TAKE 1 [facility] mg tablet 9-05 TABLET BY ity o f 00:00: MOUTH [place] 00 EVERY DAY. [facility] 625 2016-0 Yes [id number] TAKE 1 [facility] mg tablet 9-05 TABLET BY ity o f 00:00: MOUTH [place] 00 EVERY DAY. [facility] 625 2016-0 Yes [id number] TAKE 1 [facility] mg tablet 9-05 TABLET BY ity o f 00:00: MOUTH [place] 00 EVERY DAY. [facility] 625 2016-0 Yes [id number] TAKE 1 [facility] mg tablet 9-05 TABLET BY ity o f 00:00: MOUTH [place] 00 EVERY DAY. Medical [facility] 625 2016-0 Yes [id number] TAKE 1 [facility] mg tablet 9-05 TABLET BY ity o f 00:00: MOUTH [place] 00 EVERY DAY. [facility] 625 2016-0 Yes [id number] TAKE 1 [facility] mg tablet 9-05 TABLET BY ity o f 00:00: MOUTH [place] 00 EVERY DAY. [facility] 625 2017-0 Yes [id number] TAKE 1 [facility] mg tablet 9-05 TABLET BY ity o f 00:00: MOUTH [place] 00 EVERY DAY. [facility] 625 2017-0 Yes [id number] TAKE 1 [facility] mg tablet 9-05 TABLET BY ity o f 00:00: MOUTH [place] 00 EVERY DAY. [facility] 625 2017-0 Yes [id number] TAKE 1 [facility] mg tablet 9-05 TABLET BY ity o f 00:00: MOUTH [place] 00 EVERY DAY. [facility] 625 2017-0 Yes [id number] TAKE 1 [facility] mg tablet 9-05 TABLET BY ity o f 00:00: MOUTH [place] 00 EVERY DAY. [facility] 625 2017-0 Yes [id number] TAKE 1 [facility] mg tablet 9-05 TABLET BY ity o f 00:00: MOUTH [place] 00 EVERY DAY. [facility] 80 2017 Yes TK 1 T PO Un sarah [...] mg tablet 8-16 BID ity of 00:00: [place] [facility] sotalol 80 Yes TK 1 [...] 8-16 BID ity of 00:00: Medical Branch XARELTO 20 Yes TK 1 T PO Un sarah mg tablet 8-06 QD WITH ity of 00:00: THE [facility] XARELTO 20 Yes TK 1 T PO Un sarah mg tablet 8-06 QD WITH ity of 00:00: THE [facility] XARELTO 20 Yes TK 1 T PO Un sarah mg tablet 8-06 QD WITH ity of 00:00: THE [facility] XARELTO 20 Yes TK 1 T PO Un sarah mg tablet 8-06 QD WITH ity of 00:00: THE [facility] XARELTO 20 Yes TK 1 T PO Un sarah mg tablet 8-06 QD WITH ity of 00:00: [facility] Medical Branch XARELTO 20 Yes TK 1 T PO Un sarah mg tablet 8-06 QD WITH ity of 00:00: [facility] Medical Branch XARELTO 20 Yes TK 1 T PO Un sarah mg tablet 8-06 QD WITH ity of 00:00: THE [facility] XARELTO 20 Yes TK 1 T PO Un sarah mg tablet 8-06 QD WITH ity of 00:00: THE [facility] XARELTO 20 Yes TK 1 T PO Un sarah mg tablet 8-06 QD WITH ity of 00:00: THE [facility] Medical Branch XARELTO 20 Yes TK 1 T PO Un sarah mg tablet 8-06 QD WITH ity of 00:00: THE [facility] Medical Branch XARELTO 20 Yes TK 1 T PO Un sarah mg tablet 8-06 QD WITH ity of 00:00: THE [facility] Medical Branch XARELTO 20 Yes TK 1 T PO Un sarah mg tablet 8-06 QD WITH ity of 00:00: THE [facility] Medical Branch XARELTO 20 Yes TK 1 T PO Un sarah mg tablet 8-06 QD WITH ity of 00:00: THE [facility] Medical Branch XARELTO 20 Yes TK 1 T PO Un sarah mg tablet 8-06 QD WITH ity of 00:00: THE [facility] Medical Branch XARELTO 20 Yes TK 1 T PO Un sarah mg tablet 8-06 QD WITH ity of 00:00: THE [facility] Medical Branch XARELTO 20 Yes TK 1 T PO Un sarah mg tablet 8-06 QD WITH ity of 00:00: THE [facility] Medical Branch XARELTO 20 Yes TK 1 T PO Un sarah mg tablet 8-06 QD WITH ity of 00:00: THE [facility] Medical Branch XARELTO 20 Yes TK 1 T PO Un sarah mg tablet 8-06 QD WITH ity of 00:00: THE [facility] Medical Branch XARELTO 20 Yes TK 1 T PO Un sarah mg tablet 8-06 QD WITH ity of 00:00: THE [facility] Medical Branch XARELTO 20 Yes TK 1 T PO Un sarah mg tablet 8-06 QD WITH ity of 00:00: THE [facility] Medical Branch XARELTO 20 Yes TK 1 T PO Un sarah mg tablet 8-06 QD WITH ity of 00:00: THE [facility] Branch atorvastati atorvastati No atorvastat [place] [...] days. CoQ-10 CoQ-10 No CoQ-10 [place] [facility] cranberry cranberry No cranberry [place] [facility] diltiazem diltiazem No diltiazem [place] CD 180 mg CD 180 mg CD 180 mg da capsule,ext capsule,ext capsule,ex [facility] tended [facility] release 24 release 24 release 24 Health hr hr hr Outreac h Program EpiPen EpiPen No EpiPen [place] [facility] irbesartan irbesartan No irbesartan [place] 300 mg 300 mg 300 mg da tablet tablet tablet [facility] magnesium magnesium No magnesium [place] [facility] melatonin melatonin No melatonin [place] [facility] Probiotic Probiotic No Probiotic [place] [facility] sotalol 80 sotalol 80 No sotalol 80 [place] mg tablet mg tablet mg tablet da [facility] vitamin B vitamin B No vitamin B [place] complex complex complex da tablet Take tablet Take tablet [facility] by oral by oral Take by al route. route. oral Health route. Outreac h Program Xarelto 20 Xarelto 20 No Xarelto 20 [place] mg tablet mg tablet mg tablet da [facility] Zyrtec Zyrtec No Zyrtec [place] [facility] Immunizations Ordered Filled Immunization Date Status Comments Sour e Immunization Name Name SARS-COV-2 COVID-19 2021-04-24 Completed Unive rsity of PFIZER VACCINE 00:00:00 [facility] SARS-COV-2 COVID-19 2021-04-24 Completed Unive rsity of PFIZER VACCINE 00:00:00 [facility] SARS-COV-2 COVID-19 2021-04-24 Completed [facility]ive rs[facility] of PFIZER VACCINE 00:00:00 [facility] SARS-COV-2 COVID-19 2021-04-24 Completed Unive rsity of PFIZER VACCINE 00:00:00 [facility] SARS-COV-2 COVID-19 2021-04-24 Completed Unive rs[facility] of PFIZER VACCINE 00:00:00 [facility] SARS-COV-2 COVID-19 2021-04-24 Completed Unive rsity of PFIZER VACCINE 00:00:00 [facility] SARS-COV-2 COVID-19 2020-07-14 Completed [facility] MODERNA VACCINE [facility] SARS-COV-2 COVID-19 2020-07-14 Completed [facility] MODERNA VACCINE 00:00:00 [facility] SARS-COV-2 COVID-19 2020-07-14 Completed [facility] MODERNA VACCINE 00:00:00 [facility] SARS-COV-2 COVID-19 2020-07-14 Completed [facility] MODERNA VACCINE 00:00:00 [facility] SARS-COV-2 COVID-19 2020-07-14 Completed [facility] MODERNA VACCINE 00:00:00 [facility] SARS-COV-2 COVID-19 2020-07-14 Completed [facility] MODERNA VACCINE 00:00:00 [facility] SARS-COV-2 COVID-19 2020-06-15 Completed [facility] MODERNA VACCINE 00[facility]00:00 [facility] COVID-19 2020-06-15 Completed [facility] MODERNA VACCINE [facility]00 [facility] ical Branch SARS-COV-2 COVID-19 2020-06-15 Completed Unive rsity of [facility]INE [facility] SARS-COV-2 COVID-19 2020-06-15 Completed Unive rsity of MODERNA VACCINE 00:00:00 [facility] SARS-COV-2 COVID-19 2020-06-15 Completed Unive rsity of MODERNA VACCINE 00:[facility]00 [facility] SARS-[facility]OV-2 COVID-19 2020-06-15 Completed Unive rsity of MODERNA VACCINE 00:00:00 [place] [facility] Pneumococcal 2017-02-18 Completed University o [...] ical PPSV23 (PNEUMOVAX) Branch Pneumococcal 2017-02-18 Completed [place] o f Polysaccharide, 00:00:00 [place] [facility] PPSV23 (PNEUMOVAX) Branch Pneumococcal 2017-02-18 Completed [place] o f Polysaccharide, 00:00:00 [place] [facility] PPSV23 (PNEUMOVAX) Branch Pneumococcal 2017-02-18 Completed [place] o f Polysaccharide, 00:00:00 [place] [facility] PPSV23 (PNEUMOVAX) Branch Pneumococcal 2017-02-18 Completed [place] o f Polysaccharide, 00:00:00 [place] [facility] PPSV23 (PNEUMOVAX) Branch Vital Signs Vital Name Observation Time Observation Value Comments Source BP Diastolic 2021-09-24 00:00:00 88 [facility]Hg[facility] Height 2021-09-24 00:00:00 63 [in_i] [facility] BMI (Body Mass 2021-09-24 00:00:00 32.6 kg/m2 [facility] manager baby Index) [facility] BP Systolic 2021-09-24 00:00:00 165 mm[Hg] [place] [facility] Body Weight 2021-09-24 00:00:00 184 [lb_av] [facility] Systolic blood 2021-08-29 17:56:00 152 mm[Hg] Univer sity of pressure [facility] Diastolic blood 2021-08-29 17:56:00 65 mm[Hg] [facility] Heart rate 2021-08-29 17:56:00 49 /min [facility] Respiratory rate 2021-08-29 17:56:00 21 /min [facility] Oxygen saturation in 2021-08-29 17:56:00 94 /min [facility] Arterial blood by [facility] Pulse oximetry Branch Body temperature 2021-08-29 17:45:00 36.44 Jenna [facility] height 2021-08-27 18:30:00 160 cm [facility] Body weight 2021-08-27 18:30:00 83.915 kg [facility] [place] [facility] BMI 2021-08-27 18:30:00 32.77 kg/m2 [facility] [place] [facility] Systolic blood 2021-08-29 15:15:00 148 mm[Hg] Univer sity of pressure [place] [facility] Diastolic blood 2021-08-29 15:15:00 65 mm[Hg] Unive rsity of pressure [place] [facility] Heart rate 2021-08-29 15:15:00 53 /min [facility] [place] [facility] Body temperature 2021-08-29 15:15:00 36.44 Jenna [facility] [place] [facility] Respiratory rate 2021-08-29 15:15:00 15 /min Univ [facility] [place] [facility] Oxygen saturation in 2021-08-29 15:15:00 95 /min University of Arterial blood by [facility] Pulse oximetry Branch Body height 2021-08-27 18:30:00 160 cm [facility] [place] [facility] Body weight 2021-08-27 18:30:00 83.915 kg [facility] [place] [facility] BMI 2021-08-27 18:30:00 32.77 kg/m2 [facility] [place] [facility] Heart rate 2021-08-15 15:40:00 62 /min [facility] [place] [facility] Respiratory rate 2021-08-15 15:40:00 18 /min Univ ers[facility] [place] [facility] Oxygen saturation in 2021-08-15 15:40:00 94 /min University of Arterial blood by [facility] Pulse oximetry Branch Systolic blood 2021-08-15 15:38:00 146 mm[Hg] Univer sity of pressure [place] [facility] Diastolic blood 2021-08-15 15:38:00 64 mm[Hg] Unive rsity of pressure [place] [facility] Body temperature 2021-08-15 15:30:00 36.56 Jenna [facility] [place] [facility] Body height 2021-08-04 10:28:00 160 cm [facility] [place] [facility] Body weight 2021-08-04 10:28:00 82.4 kg [facility] [place] [facility] BMI 2021-08-04 10:28:00 32.19 kg/m2 [facility] [place] [facility] Systolic blood 2021-08-15 12:58:00 164 mm[Hg] Univer sity of pressure [place] [facility] Diastolic blood 2021-08-15 12:58:00 74 mm[Hg] Unive rsity of pressure [facility] Heart rate 2021-08-15 12:58:00 60 /min [facility] [place] [facility] [place] Body temperature 2021-08-15 12:58:00 36.39 Jenna Univ ersity of [facility] Respiratory rate 2021-08-15 12:58:00 19 /min Univ ersity of [facility] Oxygen saturation in 2021-08-15 12:58:00 98 /min [facility] Arterial blood by [facility] Pulse oximetry Branch Body height 2021-08-04 10:28:00 160 cm Universi ty of [facility] Body weight 2021-08-04 10:28:00 82.4 kg [facility] [place] [facility] [place] BMI 2021-08-04 10:28:00 32.19 kg/m2 Universi ty of [facility] Systolic blood 2020-09-08 15:08:00 146 mm[Hg] Univer sity of pressure [facility] Diastolic blood 2020-09-08 15:08:00 80 mm[Hg] Unive rsity of pressure [facility] Heart rate 2020-09-08 15:03:00 54 /min [facility] [place] [facility] [place] Body weight 2020-09-08 15:03:00 82.373 kg [facility] [place] [facility] [place] BMI 2020-09-08 15:03:00 32.17 kg/m2 Universi ty of [facility] Systolic blood 2020-08-23 19:58:00 141 mm[Hg] Univer sity of pressure [facility] Branch Diastolic blood 2020-08-23 19:58:00 77 mm[Hg] Unive rsity of pressure [place] [facility] Body height 2020-08-23 19:50:00 160 cm [facility] [place] [facility] Body weight 2020-08-23 19:50:00 86.183 kg [facility] [place] [facility] BMI 2020-08-23 19:50:00 33.66 kg/m2 Universi ty of [facility] Body height 2020-03-09 15:22:00 160 cm [facility] [place] [facility] Body weight 2020-03-09 15:22:00 86.183 kg [facility] BMI 2020-03-09 15:22:00 33.66 kg/m2 [facility] BP Diastolic 2019-10-27 00:00:00 80 mm[Hg] [place] [facility] Height 2019-10-27 00:00:00 63 [in_i] [place] [facility] BMI (Body Mass 2019-10-27 00:00:00 33.2 kg/m2 [place] manager baby Index) [facility] BP Systolic 2019-10-27 00:00:00 181 mm[Hg] [place] [facility] Body Weight 2019-10-27 00:00:00 187.4 [lb_av] [place] [facility] Respitory Rate 2017-04-29 18:00:00 [facility] Heart Rate 2017-04-29 18:00:00 [facility] Systolic (mm Hg) 2017-04-29 18:00:00 Pradeep rial Romero Diastolic (mm Hg) 2017-04-29 18:00:00 Mem orial [facility]ero Temperature Oral (F) 2017-04-29 18:00:00 36.5 Jenna [facility] Respitory Rate 2017-04-29 13:00:00 Memori al [place] Temperature Oral (F) 2017-04-29 13:00:00 36.5 Jenna [facility] Systolic (mm Hg) 2017-04-29 13:00:00 Pradeep rial Romero Diastolic (mm Hg) 2017-04-29 13:00:00 Mem orial [facility] Heart Rate 2017-04-29 13:00:00 [facility] Heart Rate 2017-04-29 10:00:00 [facility] Temperature Oral (F) 2017-04-29 10:00:00 36.5 Jenna [facility] Systolic (mm Hg) 2017-04-29 10:00:00 Pradeep rial [place] Diastolic (mm Hg) 2017-04-29 10:00:00 Mem orial Romero Respitory Rate 2017-04-29 10:00:00 Memori al [place] Temperature Oral (F) 2017-04-28 19:55:00 36.5 Jenna [facility] Temperature Oral (F) 2017-04-28 19:00:00 37.7 Jenna [facility] Height 2017-04-28 14:35:00 160.02 cm [facility] Height 2017-04-15 17:07:00 160.02 cm [facility] Procedures Procedure Date / Time Performing Source Performed Clinician MEDICATION CORRESPONDENCE 2021-09-24 Doctor Unassigned, [facility] 05:01:00 [facility] PHACOEMULSIFICATION OF 2021-08-29 Augustine Langley [facility] CATARACT WITH INTRAOCULAR 17:04:00 Medica l Branch LENS IMPLANT CONSENT/REFUSAL FOR DIAGNOSIS 2021-08-27 Doctor Unassigned, [facility] AND TREATMENT 15:18:49 [facility] CONSENT/REFUSAL FOR DIAGNOSIS 2021-08-27 Doctor Unassigned, [facility] AND TREATMENT 15:18:49 [facility] ASSIGNMENT OF BENEFITS 2021-08-27 Doctor Unassigned, [facility] 15:17:26 [facility] ASSIGNMENT OF BENEFITS 2021-08-27 Doctor Unassigned, [facility] 15:17:26 [facility] PHACOEMULSIFICATION OF 2021-08-15 Augustine Langley [facility] CATARACT WITH INTRAOCULAR 14:50:00 Medica l Branch LENS IMPLANT DAY SURGERY - ADC 2021-08-15 Doctor Unassigned, [facility] 05:01:00 [facility] NOTICE OF PRIVACY PRACTICES 2021-08-01 Doctor Unassigned, [facility] 23:24:21 [facility] NOTICE OF PRIVACY PRACTICES 2021-08-01 Doctor Unassigned, [facility] 23:24:21 [facility] CONSENT/REFUSAL FOR DIAGNOSIS 2021-08-01 Doctor Unassigned, [facility] 23:24:00 [facility] CONSENT/REFUSAL FOR DIAGNOSIS 2021-08-01 Doctor Unassigned, [facility] 23:24:00 [facility] ASSIGNMENT OF BENEFITS 2021-08-01 Doctor Unassigned, [facility] 23:23:34 [facility] ASSIGNMENT OF BENEFITS 2021-08-01 Doctor Unassigned, [facility] 23:23:34 [facility] MR LUMBAR SPINE WO CONTRAST 2020-09-05 Mary Jara [facility] [place] 15:46:26 Medical Branch REFERRAL- REQUEST/RESPONSE 2020-08-30 Doctor Unassigned, [facility] [place] 05:01:00 [facility] REFERRAL- REQUEST/RESPONSE 2020-04-21 Doctor Unassigned, [facility] [place] 06:01:00 [facility] REFERRAL- REQUEST/RESPONSE 2020-03-17 Doctor Unassigned, [facility] [place] 05:01:00 [facility] EXTERNAL PROVIDER RECORDS 2019-11-11 Doctor Unassigned, [facility] [place] 05:01:00 [facility] ARTHROPLASTY KNEE CONDYLE & 2017-04-28 Pradeep rial [place]ett [facility] MEDIAL AND LATERAL 17:05:00 [id number] IO (Right)<sup>1</sup> stents removed from bilateral 2017-03-02 Me morial Romero ureters 00:00:00 stent placed in bilateral 2017-02-08 Lauraori al Romero ureters<sup>2</sup> 05:00:00 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, right cheek 00:00:00 colonoscopy 2008-06-02 [facility] 00:00:00 left knee replacement 2006-06-02 [facility] ermanshul 00:00:00 cervical fusion 2003-06-02 [facility] 00:00:00 hysterectomy 1989-06-02 [facility] 00:00:00 carpal tunnel<sup>3</sup> Yoana Chinchilla Procedure on Kidney [place] [facility] Excision of Basal Cell [place] [facility] Carpal Tunnel Surgery [place] [facility] Complete Repair of Rotator [place] [facility] Total Replacement of Left [place] manager baby [facility] Arthrd Ant Ntrbd Min Dsc Crv [place] [facility] Total Hysterectomy [place] Epi scopal [facility] Program Encounters Start End Encounter Admission Attending Care Care Encounter Source Date/Time Date/Time Type Type Clinicians Facility Department ID 2021-09-24 2021-09-24 Outpatient Ferguson_Ro ANGÉLICA [facility] [id number] [place] 02:14:00 02:14:00 bin [id number] [facility] 2021-09-24 2021-09-24 Orders Doctor MADELEINE [id number] Univers 00:00:00 00:00:00 Only Unassigned, NISHANT [id number] ity of [place] [facility] [id number] Cheng as [id number] [address] 2021-09-24 2021-09-24 Tiago Barrett 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 Program 2021-08-29 2021-08-29 Outpatient [facility] [id number] Univers 10:01:00 13:07:00 [facility] 2021-08-29 2021-08-29 [facility] [id number] Univers 10:01:00 13:07:00 Encounter Augustine CANCINO [id number] ity [id number] [id number] [facility] 071 [place] 2021-08-29 2021-08-29 Surgery [facility] [id number] Univers 11:21:00 12:02:00 Augustine CANCINO [id number] [place] [id number] [facility] 020 Branch 2021-08-15 2021-08-15 Outpatient [facility] [id number] Univers 07:52:00 10:57:00 [facility] 2021-08-15 2021-08-15 [facility] [id number] Univers 07:52:00 10:57:00 Encounter Augustine CANCINO [id number] ity [id number] [id number] [place] 860671 [place] 2021-08-15 2021-08-15 Surgery [facility] [id number] Univers 09:28:00 10:08:00 Augustine CANCINO [id number] ity [facility] [id number] [id number] [facility] 020 [place] 2021-08-15 2021-08-15 Orders Doctor MADELEINE [id number] Univers 00:00:00 00:00:00 Only Unassigned, NISHANT [id number] [facility] [facility] 4.2.7.2.686 Cheng as [id number] [facility] 009 [place] 2020-09-08 2020-09-08 [facility]patient [facility] [id number] Univers 10:15:00 10:15:00 [facility] 2020-09-08 2020-09-08 Office [facility] [id number] Univers 09:45:09 10:00:09 Visit [facility] [id number] it y of Surgical [id number] Cheng as Specialti [id number] Ct dical es [address] [facility] 2020-09-05 2020-09-05 [facility] [id number] Univers 09:51:09 23:59:00 Encounter Mary Cancino [id number] it[place] [id number] [facility] 804 [place] 2020-09-05 2020-09-05 Outpatient [facility] [id number] Univers 00:00:00 00:00:00 MARY orellana [facility] 2020-08-30 2020-08-30 Orders Doctor MADELEINE 1.2.840.114 [id number] Univers 00:00:00 00:00:00 Only Unassigned, NISHANT [id number] [facility] [facility] 4.2.7.2.686 Cheng as [id number] [address] 2020-08-25 2020-08-25 Telephone [facility] 1.2.840.114 [id number] Univers 00:00:00 00:00:00 [facility] [id number] it y of Surgical 4.2.7.2.686 [place] as Specialti [id number] Ct dical es [address] [facility] 2020-08-23 2020-08-23 Outpatient [facility] [id number] Univers 15:30:00 15:30:00 MARY itdorian of [facility] 2020-08-23 2020-08-23 Office [facility] [id number] Univers 14:50:12 15:17:29 Visit [facility] [id number] it y of Surgical 4.2.7.2.686 [place] as Specialti [id number] Ct dical es 198 [facility] 2020-06-24 2020-06-24 Patient [facility] 1.2.840.114 [id number] Univers 00:00:00 00:00:00 Outreach Aldo PRIMARY [id number] i ty of [facility] [place]2.7.2.[place] [id number] Ct dicca 388 [place] 2020-04-21 2020-04-21 Orders Doctor MADELEINE 1.2.840.114 [id number] Univers 00:00:00 00:00:00 Only Unassigned, NISHANT [id number] [facility] [facility] 4.2.7.2.686 Cheng as [id number] [address] 2020-03-17 2020-03-17 Orders Doctor MADELEINE 1.2.840.114 [id number] Univers 00:00:00 00:00:00 Only Unassigned, NISHANT [id number] [facility] 4.2.7.2.686 Cheng as [id number] [address] 2020-03-09 2020-03-09 [facility] 1.2.840.114 [id number] Univers 10:48:47 23:59:00 Encounter [facility] [id number] ity of Surgical 4.2.7.2.686 [place] as Specialti [id number] Ct dical es 809 [facility] 2020-03-09 2020-03-09 Office Marek [facility] [id number] [facility] 10:02:56 10:55:46 Visit Mary [facility] [id number] it y of Surgical [id number] [place] as Specialti [id number] Ct dical es [address] [facility] 2020-03-09 2020-03-09 Outpatient [facility] [id number] [facility] 10:15:00 10:15:00 MARY ity [facility] 2019-11-11 2019-11-11 Orders Doctor MADELEINE 1.2.840.114 [id number] 00:00:00 00:00:00 Only Unassigned, NISHANT 350.1.13.10 [facility] 4.2.7.2.[id number] [facility] 2019-11-11 2019-11-11 Orders Doctor SALVADOR 1.2.840.114 [id number] [facility] 00:00:00 00:00:00 Only Unassigned, NISHANT [id number] [facility] 4.2.7.2.686 Cheng as [id number] [address] 2019-10-28 2019-10-28 Telephone [facility] [id number] 00:00:00 00:00:00 Gabby Cancino 350.1.13.10 [place] 4.2.7.2.686 Professio [id number] [address] 2019-10-28 2019-10-28 Telephone [facility] [id number] [facility] 00:00:00 00:00:00 Gabby Cancino 350.1.13.10 [place] Professio [id number] Ct dical nal 044 [facility] 2019-10-27 2019-10-27 Outpatient Ferguson_Ro MEJUANIS [facility] [id number] [place] 04:32:00 04:32:00 bin [id number] [facility] 2019-10-27 2019-10-27 Tiago Barrett [facility] [place] - [id number] [place] 00:00:00 00:00:00 Jeremy Grey MD: [id number] [place] Epis copywriting intern [place] HOP - [facility] [address], Outreac [facility] [place] Program [phone] , Ph. 2019-09-03 2019-09-03 Outpatient Ferguson_Ro [facility] [id number] [place] 03:40:00 03:40:00 bin [id number] [facility] 2019-09-03 2019-09-03 Outpatient Ferguson_Ro [facility] [id number] [place] 03:40:00 03:40:00 bin [id number] da Episcop [facility] Outre[facility] Program 2017-04-28 2017-04-29 Inpatient nullFlavo [facility] [id number] Memoria 12:13:36 22:30:00 beny [facility] 2017-04-28 2017-04-29 Inpatient nullFlavo [facility] [id number] Memoria 12:13:36 22:30:00 [facility] 2017-04-28 2017-04-29 Outpatient Filipe, [id number] 112 06:13:36 16:30:00 Mars 8 2017-04-28 2017-04-29 Inpatient nullFlavo [facility] [id number] Memoria 06:13:36 16:30:00 beny Jasso Results Test Test Test Results Result Source Description Time Comments Comments MR LUMBAR SPINE 2020-08- HISTORY: Chronic low back [facility] CONTRAST 06 pain. TECHNIQUE: [facility] 15:54:55 T2 FRFSE, T1, STIR and Br [...] Item Value Reference Range Interpretation Comme nts Calcium Level (test code = Calcium Level) 8.0 8.5-10.5 [facility]FVPESTWG5964-74-91 08:40:00 Test Item Value Reference Range Interpretation Comments Carbon Dioxide Level (test code = 25 24-32 Carbon Dioxide Level) [facility] TexasZpajodiBETQLUDTOZ5078-87-37 08:40:00 Test Item Value Reference Range Interpretation Comments eGFR (test code = eGFR) 86 [facility]VtnnmqwYOSQPLBLJD3470-43-12 08:40:00 Test Item Value Reference Range Interpretation Comments AGAP (test code = AGAP) 15.6 10.0-20.0 [place] 302647-11-28 08:40:00 Test Item Value Reference Range Interpretation Comments Chloride Level (test code = Chloride 105 95-109 Level) [facility]AodttyeELFILUKUOR0073-79-60 08:40:00 Test Item Value Reference Range Interpretation Comments Potassium Level (test code = Potassium 3.6 3.5-5.1 Level) [facility] TexasUlsyutsLIWLJEHSEP2775-04-08 08:40:00 Test Item Value Reference Range Interpretation Comments Sodium Level (test code = Sodium Level) 142 135-145 [facility] TexasFvopxrjGICBXYQSQL1745-70-81 08:40:00 Test Item Value Reference Range Interpretation Comments Creatinine (test code = Creatinine) 0.64 0.50-1.40 [place] 302647-11-28 08:40:00 Test Item Value Reference Range Interpretation Comments BUN (test code = BUN) 13 7-22 [facility]JwaqtceUTTROTRZAD9185-30-59 08:40:00 Test Item Value Reference Range Interpretation Comments Glucose Lvl (test code = Glucose Lvl) 158 70-99 [facility]NosqapdXFVNOTHZLH2504-67-44 08:40:00 Test Item Value Reference Range Interpretation Comments Results (test code = Reported (04/29/17 2:40 Results) AM) [place] 302647-11-28 08:40:00 Test Item Value Reference Range Interpretation Comments MPV (test code = MPV) 8.7 7.4-10.4 [facility] TexasRnrhmkoOKPZBBYAMJ1994-65-57 08:40:00 Test Item Value Reference Range Interpretation Comments Platelet (test code = Platelet) 163 133-450 [facility]KxggwguZMGKYNGAUA1613-96-77 08:40:00 Test Item Value Reference Range Interpretation Comments RDW (test code = RDW) 12.8 11.5-14.5 [facility] TexasJhacdclTIELUBUZQJ0784-39-52 08:40:00 Test Item Value Reference Range Interpretation Comments MCHC (test code = MCHC) 33.0 32.0-36.0 [facility] TexasYixakcsRQKFEJDXHL1968-51-32 08:40:00 Test Item Value Reference Range Interpretation Comments MCH (test code = MCH) 30.0 pg 27.0-31.0 [facility] TexasZhsbkxeQADNYZFILU2835-31-06 08:40:00 Test Item Value Reference Range Interpretation Comments Hematocrit (test code = Hematocrit) 27.1 36.0-48.0 [facility] TexasOnhwczzJHTPBKUVIO9522-82-15 08:40:00 Test Item Value Reference Range Interpretation Comments Red Blood Cell Count (test code = Red 2.98 4.20-5.40 Blood Cell Count) [facility] TexasKgxuztuVXJGDIBIEJ4202-94-69 08:40:00 Test Item Value Reference Range Interpretation Comments MCV (test code = MCV) 90.8 80.0-98.0 [facility] TexasPrzrxbfRCWTSEDNXP7106-40-96 08:40:00 Test Item Value Reference Range Interpretation Comments Hemoglobin (test code = Hemoglobin) 8.9 12.0-16.0 [facility] TexasDamexomYNCDYVRAAI0389-82-87 08:40:00 Test Item Value Reference Range Interpretation Comments White Blood Count (test code = White 13.4 3.7-10.4 Blood Count) [facility] TexasYqzexydPZVLPYCVDS7351-72-01 08:40:00 Test Item Value Reference Range Interpretation Comments Results (test code = Reported (04/29/17 2:40 Results) AM) [facility] TexasDjoacnuMCUTIVMMZK3067-32-48 08:40:00 Test Item Value Reference Range Interpretation Comments Monocyte # (test code = 0.6 See_Comment [Au tomated message] The Monocyte #) system which ge nerated this result tra nsmitted reference range : <=0.8. The reference r bertrand was not used to int erpret this result as normal/abnormal . [facility] TexasZtdtytkMTWIRJFFIH2914-97-54 08:40:00 Test Item Value Reference Range Interpretation Comments Neutrophil # (test code = Neutrophil #) 12.1 1.5-8.1 [facility] TexasAfoejteYZCDWIKBAH9664-65-86 08:40:00 Test Item Value Reference Range Interpretation Comments Eosinophil # (test code 0.0 See_Comment [Au tomated message] The = Eosinophil #) system which generated this result tra nsmitted reference range : <=4.0. The reference r bertrand was not used to int erpret this result as normal/abnormal . [facility] TexasVheoedpTDMDCATHMD4702-47-78 08:40:00 Test Item Value Reference Range Interpretation Comments Lymphocyte # (test code = Lymphocyte #) 0.7 1.0-5.5 [facility] TexasFwkvnmnEIWESNUDGG7990-94-87 08:40:00 Test Item Value Reference Range Interpretation Comments Basophil % (test code = 0.0 See_Comment [Au tomated message] The Basophil %) system which ge nerated this result tra nsmitted reference range : <=1.0. The reference r bertrand was not used to int erpret this result as normal/abnormal . [facility] TexasBecgkbtIUIJXLDOPT0646-59-22 08:40:00 Test Item Value Reference Range Interpretation Comments Neutrophil % (test code = Neutrophil %) 90.4 45.0-75.0 [facility] [id number] 08:40:00 Test Item Value Reference Range Interpretation Comments Calcium Level (test code = Calcium 8.0 8.5-10.5 Level) [facility]XenycqnZOGFMORVHA2012-34-92 08:40:00 Test Item Value Reference Range Interpretation Comments Carbon Dioxide Level (test code = 25 24-32 Carbon Dioxide Level) [facility] [id number] 08:40:00 Test Item Value Reference Range Interpretation Comments eGFR (test code = eGFR) 86 [facility] [place]SzhezysMFHACWWLQA5694-19-82 08:40:00 Test Item Value Reference Range Interpretation Comments AGAP (test code = AGAP) 15.6 10.0-20.0 [facility] [place]TzdoxjlJZAWSADYPH8670-29-55 08:40:00 Test Item Value Reference Range Interpretation Comments Chloride Level (test code = Chloride 105 95-109 Level) [facility] [place]VvrxggmCBZMBSUFKA4873-51-02 08:40:00 Test Item Value Reference Range Interpretation Comments Potassium Level (test code = Potassium 3.6 3.5-5.1 Level) [facility] [place]AomzgzwEZWYKBLGKM6697-97-10 08:40:00 Test Item Value Reference Range Interpretation Comments Sodium Level (test code = Sodium Level) 142 135-145 [facility] [place]HjayjxsTMUOYBVSMF5482-49-08 08:40:00 Test Item Value Reference Range Interpretation Comments Creatinine (test code = Creatinine) 0.64 0.50-1.40 [facility] [place]TuuzcnlYUQLSVQTDU2234-36-94 08:40:00 Test Item Value Reference Range Interpretation Comments BUN (test code = BUN) 13 7-22 [facility] [place]JdizvelCWZOWPHNZM5423-97-32 08:40:00 Test Item Value Reference Range Interpretation Comments Glucose Lvl (test code = Glucose Lvl) 158 70-99 [facility] [place]XaqwemjLCVHAVEGMA0975-83-09 08:40:00 Test Item Value Reference Range Interpretation Comments Results (test code = Reported (04/29/17 2:40 Results) AM) [facility] [place]KtldsijBOIXQHQNFY5063-00-42 08:40:00 Test Item Value Reference Range Interpretation Comments MPV (test code = MPV) 8.7 7.4-10.4 [facility] [place]ZyhhscbLGZLIKYQWA1590-58-81 08:40:00 Test Item Value Reference Range Interpretation Comments Platelet (test code = Platelet) 163 133-450 [facility] TexasTaikyueETMFVTYBBI2463-24-29 08:40:00 Test Item Value Reference Range Interpretation Comments RDW (test code = RDW) 12.8 11.5-14.5 [facility] [place]BxhqdihACUWDRHYQC9316-03-05 08:40:00 Test Item Value Reference Range Interpretation Comments MCHC (test code = MCHC) 33.0 32.0-36.0 [facility] [place]UnjowlbIQCPMOIIPY9982-62-03 08:40:00 Test Item Value Reference Range Interpretation Comments MCH (test code = MCH) 30.0 pg 27.0-31.0 [facility] [place]HsuyxurPFCQWPXXWS7186-29-87 08:40:00 Test Item Value Reference Range Interpretation Comments Hematocrit (test code = Hematocrit) 27.1 36.0-48.0 [facility] [place]IdqfuxoSAKZIPLIKZ6416-97-55 08:40:00 Test Item Value Reference Range Interpretation Comments Red Blood Cell Count (test code = Red 2.98 4.20-5.40 Blood Cell Count) [facility] [place]BluxvaoNOMAKRQDSN6586-67-10 08:40:00 Test Item Value Reference Range Interpretation Comments MCV (test code = MCV) 90.8 80.0-98.0 [facility] [place]AvgplqwKPOTQYBHDM8572-82-03 08:40:00 Test Item Value Reference Range Interpretation Comments Hemoglobin (test code = Hemoglobin) 8.9 12.0-16.0 [facility] [place]KdfdmdfADCIMRXHFQ1012-71-32 08:40:00 Test Item Value Reference Range Interpretation Comments White Blood Count (test code = White 13.4 3.7-10.4 Blood Count) [facility] [place]EgzihcgOSEADWGEGE9039-05-91 08:40:00 Test Item Value Reference Range Interpretation Comments Results (test code = Reported (04/29/17 2:40 Results) AM) [facility] [place]P[id number] 08:40:00 Test Item Value Reference Range Interpretation Comments Monocyte # (test code = 0.6 See_Comment [Au tomated message] The Monocyte #) system which ge nerated this result tra nsmitted reference range : <=0.8. The reference r bertrand was not used to int erpret this result as normal/abnormal . [facility] [place]WvwdopdLNHXTBLHPZ9067-25-47 08:40:00 Test Item Value Reference Range Interpretation Comments Neutrophil # (test code = Neutrophil #) 12.1 1.5-8.1 [facility] [place]MxuqsxvOAZOTZZOYE2904-86-07 08:40:00 Test Item Value Reference Range Interpretation Comments Eosinophil # (test code 0.0 See_Comment [Au tomated message] The = Eosinophil #) system which generated this result tra nsmitted reference range : <=4.0. The reference r bertrand was not used to int erpret this result as normal/abnormal . [facility] [place]CdkgfrgUJSXCVHVLJ4813-10-08 08:40:00 Test Item Value Reference Range Interpretation Comments Lymphocyte # (test code = Lymphocyte #) 0.7 1.0-5.5 [facility] [place]UqhdmcsMRAIKJGZNB9438-89-10 08:40:00 Test Item Value Reference Range Interpretation Comments Basophil % (test code = 0.0 See_Comment [Au tomated message] The Basophil %) system which ge nerated this result tra nsmitted reference range : <=1.0. The reference r bertrand was not used to int erpret this result as normal/abnormal . [facility] [place]YuhuwtuBCHBJFYQXZ6795-29-37 08:40:00 Test Item Value Reference Range Interpretation Comments Basophil # (test code = 0.0 See_Comment [Au tomated message] The Basophil #) system which ge nerated this result tra nsmitted reference range : <=0.2. The reference r bertrand was not used to int erpret this result as normal/abnormal . [facility] [place]VpneqncJXQDLFXFXH4999-05-91 08:40:00 Test Item Value Reference Range Interpretation Comments Basophil # (test code = 0.0 See_Comment [Au tomated message] The Basophil #) system which ge nerated this result tra nsmitted reference range : <=0.2. The reference r bertrand was not used to int erpret this result as normal/abnormal . [facility] [place]IayojxyWFKEOQIBEM0603-95-54 08:40:00 Test Item Value Reference Range Interpretation Comments Eosinophil % (test code 0.0 See_Comment [Au tomated message] The = Eosinophil %) system which generated this result tra nsmitted reference range : <=0.5. The reference r bertrand was not used to int erpret this result as normal/abnormal . [facility] [place]UzzvdftCOYKGWWRPY1840-96-25 08:40:00 Test Item Value Reference Range Interpretation Comments Monocyte % (test code = Monocyte %) 4.7 2.0-12.0 [facility] [place]FysvidtFKQLFJCVXK9260-09-31 08:40:00 Test Item Value Reference Range Interpretation Comments Lymphocyte % (test code = Lymphocyte %) 4.9 20.0-40.0 [facility] [place]UtvyhllWELFKZYOUG9519-35-09 08:40:00 Test Item Value Reference Range Interpretation Comments Eosinophil % (test code 0.0 See_Comment [Au tomated message] The = Eosinophil %) system which generated this result tra nsmitted reference range : <=0.5. The reference r bertrand was not used to int erpret this result as normal/abnormal . [facility] [place]UmmjanaRBYJSUJWJP5814-72-77 08:40:00 Test Item Value Reference Range Interpretation Comments Monocyte % (test code = Monocyte %) 4.7 2.0-12.0 [facility] TexasZmmtoowZWIQEKJALL2726-86-36 08:40:00 Test Item Value Reference Range Interpretation Comments Lymphocyte % (test code = Lymphocyte %) 4.9 20.0-40.0 [facility] [place]QcotvxpMZPXTRWFPY5720-12-75 08:40:00 Test Item Value Reference Range Interpretation Comments Neutrophil % (test code = Neutrophil %) 90.4 45.0-75.0 [facility]
[2023-01-15] MEDS ORDERED: TRAMADOL HCL 50 MG TAB PO PRN (13:12)
[2023-01-15] MEDS ORDERED: ACETAMINOPHEN 500 MG TAB PO PRN (13:12)
[2023-01-15] MEDS ORDERED: ONDANSETRON 4 MG (ODT) TAB PO PRN (13:52)
[2023-01-15] MEDS ORDERED: CETIRIZINE HCL 5 MG TABLET PO PRN (13:53)
[2023-01-15 14:14] VITALS: BMI 31.6
[2023-01-15] MEDS: RIVAROXABAN 20 MG TABLET PO SCH (17:16)
[2023-01-15 17:57] LABS: Specific Gravity 1.011 (1.005-1.030); Urine Bacteria <20 /HPF (<20); Urine Bilirubin NEGATIVE (Negative); Urine Blood Negative (Negative); Urine Clarity Turbid (Clear); Urine Color Light-Yellow (Yellow); Urine Glucose NEGATIVE (Negative); Urine Protein NEGATIVE (Negative); Urine RBC <5 /HPF (None Seen); Urine Urobilinogen Normal (Normal); Urine pH 5.5 (5.0-7.0)
[2023-01-15] MEDS: CRANBERRY FRUIT EXTRACT 200 MG CAP PO SCH (19:40)
[2023-01-15] MEDS: ATORVASTATIN 80 MG TAB PO SCH (19:40)
[2023-01-15] MEDS: COENZYME Q10- 200 MG CAP PO SCH (19:41)
[2023-01-16 04:04] LABS: Absolute Lymphocytes (CBC) 1.9 K/uL (0.7-4.9); Hematocrit 40.1 % (36.0-45.0); Lymphocytes % 35.1 % (15.3-44.8); MCV 92.3 fL (80-100); Platelets 168 thou/uL (152-406); RBC Red Blood Cell Count 4.34 M/uL (3.86-4.86)
--- NOTE | 2023-01-16 04:27 | HP ---
Date of Admission: 01/15/2023 Time Of Service: 1:30 p.m. Chief Complaint: "I had another stroke." History Of Present Illness: Ms. Sloan is an 82-year-old patient with a prior stroke with good recove ry. She had inpatient rehabilitation. She has also dyslipidemia, hypertension, and COPD and she cam e to the Acute Care, [facility] on 01/13 after falling. She was found by neighbors at the stefan sitting and family noted she had left facial droop and slurred speech. At [facility], her workup showed left-sided weakness, difficulty ambulating and slurred speech. MRI of the brain showed a 13 mm acute stroke, nonhemorrhagic in the right tracy. Blood work showed elevated triglycerides of 199, elevated BUN of around 19, glucose slightly elevated to 118. She did receive aspirin, statin, and wa s on Xarelto 20 mg daily. Due to the high risk of a bleed, she was just kept on the Xarelto 20 mg da jerardo. She was noted to have atrial fibrillation and was placed on Xarelto due to that. Due to her si gnificant deficits and multiple comorbid conditions requiring management, she was determined to be an appropriate candidate for inpatient rehabilitation and is therefore admitted to the rehabilitation u nit as she requires moderate assistance for performing activities of daily living, for ambulating, an d for her slurred speech and the risk of aspiration pneumonia. Past Medical History: Dyslipidemia, stroke in 2017, arthritis, hypertension, and atrial fibrillation . Past Surgical History: Left knee replacement, cervical fusion, appendectomy, and colonoscopy. Allergies: PENICILLIN. Family History: Noncontributory. X-ray/imaging: Brain MRI on 01/13/2023 identified a 3 mm acute infarct in the right aspect of the po ns. Chest x-ray on 01/13 showed no acute intrathoracic processes. Head CT on 01/13 showed no eviden ce of large vessel occlusion or flow-limiting stenosis and that includes CT angiogram of the head and neck. Laboratory Studies: Complete blood count with differential on 01/13, essentially unremarkable except neutrophils slightly elevated to 79.3. INR 1.53. Sodium 141, potassium 3.6, chloride 112, carbon d ioxide 26, BUN 18, creatinine 0.69, glucose 103, calcium 8.5. Triglyceride 199, cholesterol total 13 3, LDL cholesterol 28, HDL 65. It should be noted that a urinalysis on 01/13/2023 was consistent wit h a urinary tract infection with 500 esterase, extremely turbid clarity, 2+ blood, 10 to 20 red blood cells. Social History: The patient lives with family. and children are involved with care. No alc ohol, tobacco, or IV drug use. Review of Systems: As noted, she has left-sided incoordination, weakness, and dysarthria. She had recovered from a prio r stroke, which affected the contralateral side. Otherwise, no significant changes such as fevers, c hills, nausea, or vomiting. No rash. No headache. No psychiatric issues. Physical Examination: Vital Signs: Blood pressure 165/81, pulse 81, respiratory rate 16, temperature 97.7, oxygen saturati on 91% to 97% on room air. General: Ms. Sloan is resting comfortably. Family members in the room. She is in no acute distress . HEENT: She appears normocephalic, atraumatic. Sclerae are anicteric. Oropharynx is moist. Neck: Supple. Chest: Clear. Heart: Irregularly irregular. Abdomen: Soft. Extremities: Show no clubbing, cyanosis, or edema. Neurological: She has left upper and lower extremity mild weakness, around 4/5. Some incoordination in terms of hxijwr-bv-lkhp and qclb-bt-plqy. Her sensory exam slightly decreased to light touch tem perature in the right compared to the left side. Current Level Of Functioning: She requires supervision and set up for eating, oral hygiene; moderate assist for toileting, showering; contact guard assist for upper body dressing; moderate assistance f or lower body dressing; moderate assistance for donning and doffing footwear; supervision to contact guard assistance for rolling left and right in bed; moderate assistance for sitting up in bed; sit to stand, toilet transfers, and ambulating require moderate assistance. With a rolling walker, she cov ered 120 feet with moderate assistance. Rehabilitation And Medical Assessment And Plan: Ms. Sloan is admitted to the rehabilitation unit wit h an impairment category of 01 stroke. Her impairment group code is 01.1, left body involvement, rig ht brain involvement and the brainstem. The etiologic diagnosis, 13 mm nonhemorrhagic stroke in the right tracy part of the brainstem. Comorbidities; chronic obstructive pulmonary disease, gastroesopha geal reflux disease, hypertension, dyslipidemia, insomnia, and osteoarthritis. Plan: 1.She will have physical, occupational, and speech therapy for 3.5 hours, 5 of 7 days. 2.She will continue Xarelto 20 mg daily for atrial fibrillation. 3.Ultram 50 mg at night as needed for pain. 4.Zofran 4 mg every 6 hours as needed for nausea. 5.Melatonin 10 mg at night for insomnia. 6.Magnesium 400 mg daily for muscle spasms. 7.Folic acid 1 mg daily for stroke risk reduction. 8.Diltiazem 180 mg daily for heart rate and blood pressure control. 9.Lipitor 80 mg at bedtime for dyslipidemia. 10.Zyrtec for seasonal allergies. 11.Coenzyme Q10 200 mg at bedtime. 12.Tylenol Extra Strength 500 mg every 6 hours as needed for mild pain. Impact Of Comorbidities: She has atrial fibrillation and is at continued risk of stroke. She will b e well hydrated and continue with Xarelto, which will help for DVT prophylaxis as well as stroke risk reduction in the setting of atrial fibrillation. She is at risk of falling given her stroke. She w ill have a gait belt and a fall precautions adhered to at all times. If need be, chair alarm and bed alarm will be placed if she does show signs of impulsivity. Rehab Specific Plan: Ms. Sloan will have 3.5 hours, 5 of 7 days of physical, occupational, and speec h therapy to improve her left upper and lower extremity weakness and incoordination along with her di fficulty with her balance. She will have care home physician evaluation on a daily basis. Ms. Sloan has a good understanding of the process of admission to the inpatient rehabilitation facili . She has a potential to make good improvement and again, will require all 3 disciplines, physical , occupational, and speech therapy. If need be, the Cardiology Service and Pulmonary Service will be involved. Given her complex medical condition and risk of further complications, rehabilitation can not be safely or effectively performed at a lower level of care such as care home. Barriers To Discharge: Currently, risk of additional stroke due to atrial fibrillation is a challeng e, but again, we will continue with Xarelto for atrial fibrillation. She will be at increased risk o f bleeding given Xarelto and if there is a fall, there is a high risk of bleeding intracranially and in noncompressible sites. Fall precautions again adhered to her at all times. Estimated Length Of Stay: Around 2 weeks. Disposition: Home with family. Prognosis: Good. Rehabilitation Goals: 1.Become independent with her upper and lower body dressing and donning and doffing her shoes. 2.Independent and return of strength to the right upper extremity, so she is highly functional. 3.Ambulating 250 feet with modified independence. 4.Up and down 25 steps, modified independence. 5.Performing showering and toileting with modified independence. 6.Performing cognitive functioning with modified independence. 7.All intake food at regular consistency with modified independence. 8.I have reviewed goals with Ms. Sloan and family and she and family are in agreement. I acknowledge that I have personally performed a full physical examination, no later than [address] admission to the inpatient rehabilitation unit and determined that she is able to tolerate the ab ove course of treatment at an intensive level for a reasonable period of time. A detailed individual ized plan of care for her will be completed by hospital day 4 based on the preadmission screen, history and physical, and therapy ev aluations. USAMA/ADRIAN Voice ID: [id number]
[2023-01-16 04:30] LABS: Albumin 3.4 g/dL (3.4-5.0); Magnesium 2.2 mg/dL (1.6-2.4); Potassium 3.8 mEq/L (3.5-5.1); Prealbumin 19.4 mg/dL (20-40)
[2023-01-16] MEDS: FOLIC ACID 1 MG TABLET PO SCH (08:07)
[2023-01-16] MEDS: CRANBERRY FRUIT EXTRACT 200 MG CAP PO SCH ×2 (08:07→19:56)
[2023-01-16] MEDS: DILTIAZEM HCL 180 MG SR CAP PO SCH (08:07)
[2023-01-16] MEDS: MAGNESIUM OXIDE 400 MG TAB PO SCH (08:08)
[2023-01-16] MEDS: VALSARTAN 160 MG TAB PO SCH (11:32)
[2023-01-16] MEDS: RIVAROXABAN 20 MG TABLET PO SCH (16:56)
[2023-01-16] MEDS: SOTALOL HCL 80 MG TAB PO SCH (16:56)
[2023-01-16] MEDS: ENSURE ENLIVE 237 ML CAN PO SCH (19:55)
[2023-01-16] MEDS: ATORVASTATIN 80 MG TAB PO SCH (19:56)
[2023-01-16] MEDS: COENZYME Q10- 200 MG CAP PO SCH (19:56)
[2023-01-16] MEDS: MELATONIN 5 MG TABLET PO PRN (19:58)
--- NOTE | 2023-01-16 23:30 | PN ---
Date of Progress Note: 01/16/2023 Time Of Service: 1:35 p.m. Subjective: Ms. Sloan is doing well. She is happy with her recovery so far from her stroke and she has no new complaints. Review of Systems: She did have some myalgias and arthralgias. Otherwise, no rash. No other issues on review of system s. No fevers, chills. No psychiatric complaints such as depression, which is a possibility with her stroke. Physical Examination: Vital Signs: Blood pressure ranged 136 to 181 over 69 to 89, pulse ranged from 64 to 77, temperature 97.2, oxygen saturation 97%. General: Ms. Sloan is sitting in a chair beside the bed. HEENT: She appears normocephalic, atraumatic. Sclerae anicteric. Oropharynx is pink and moist. Neck: Supple. Chest: Clear. Heart: Regular. Extremities: In terms of her examination, she has 4/5 strength in the left upper and lower extremiti es. Some difficulty with fxxvwm-ye-lcaw, mqgm-zp-ooyz, left, but she has symmetric face with good ex cursions on smiling. Laboratory Studies: Complete blood count with differential is completely normal. Chemistry: Sodium 142, potassium 3.8, chloride 113, carbon dioxide 27, BUN 19, creatinine 0.67, prealbumin 19.4, album in 3.4. Urinalysis shows esterase 500, trace budding yeast, turbid clarity, otherwise normal. X-ray/imaging: None. Medications: Tylenol Extra Strength 500 mg every 6 hours as needed, Lipitor 80 mg at bedtime, Zyrtec 5 mg daily, CoQ10 200 mg at bedtime, diltiazem 180 mg daily, folic acid 1 mg daily, magnesium oxide 400 mg daily, melatonin 10 mg at bedtime, Ensure Enlive 237 mL twice daily, Xarelto 20 mg at bedtime, Zofran 4 mg every 6 hours as needed, sotalol 80 mg twice daily, Ultram 50 mg every 6 hours, Diovan 1 60 mg daily. Current Functional Status: Today, she ambulated 200 feet, another 100 feet with minimum assistance u sing a quad cane. She also ambulated 250 feet with contact guard assistance using a rolling walker. She ascended and descended 15 steps with minimum assistance using bilateral handrails. She did mult iple czk-ao-jumbe transfers with contact guard assist using a quad cane. With her occupational thera py, supine to sit transfers, supervision was required for supine to sit transfers and she did ambulat e with occupational therapy 150 feet with supervision requiring some verbal cues. She was assessed b y speech therapy with long-term goals of improving cognitive communication skills to a minimum assist ance level in preparation of returning home and to become independent and safe. Progress Towards Rehabilitation Goals: Ms. Sloan is making excellent progress to her ability to ambu late now 250 feet close to 500 feet with independence up and down 10 steps with independence. She do es have some slight challenge with cognitive functioning, but is also making good progress there. Pr ogress made too with her transfers and dressing upper and lower body, showering, and toileting. Assessment: Ms. Sloan is an 82-year-old patient in the rehabilitation unit with a 13 mm nonhemorrhag ic stroke in the right tracy producing some left-sided weakness. She has chronic obstructive pulmonar y disease, gastroesophageal reflux disease, hypertension, dyslipidemia, insomnia, and osteoarthritis. Plan: 1.Continue with physical, occupational, and speech therapy for 3.5 hours, 5 of 7 days. 2.Continue with Xarelto 20 mg daily for atrial fibrillation. Continue Zofran every 6 hours as neede d for nausea. Continue Ultram and Tylenol as needed for pain. Continue melatonin for insomnia. Con tinue magnesium for muscle spasms. Continue diltiazem to control blood pressure and heart rate. Con tinue Zyrtec for seasonal allergies. Continue Lipitor for dyslipidemia. Comorbidities That Continue To Impact Rehabilitation: Currently, she does have some cognitive issues , impulsivity, which is being worked on. her comorbidities do not negatively impact her rehabilitation. LB/MODL Voice ID: [id number] Report ID: [id number]
[2023-01-17] MEDS: SOTALOL HCL 80 MG TAB PO SCH ×2 (05:34→17:11)
[2023-01-17] MEDS: CRANBERRY FRUIT EXTRACT 200 MG CAP PO SCH ×2 (07:52→20:03)
[2023-01-17] MEDS: FOLIC ACID 1 MG TABLET PO SCH (07:52)
[2023-01-17] MEDS: MAGNESIUM OXIDE 400 MG TAB PO SCH (07:53)
[2023-01-17] MEDS: ENSURE ENLIVE 237 ML CAN PO SCH ×2 (07:53→20:03)
[2023-01-17] MEDS: DILTIAZEM HCL 180 MG SR CAP PO SCH (09:21)
[2023-01-17] MEDS: VALSARTAN 160 MG TAB PO SCH (09:59)
--- NOTE | 2023-01-17 13:47 | P.RH.PN ---
Estimated Length of Stay: 11 Expected Discharge Date: 01/25/23 Discharge Disposition Plan: Home Family Support: Yes Retirement Goal: Mobility, Transfers, Self Care Vital Signs: Last Vital Signs Temp 96.8 F 01/17/23 07:04 Pulse 65 01/17/23 12:25 Resp 16 01/17/23 07:04 BP 153/72 H 01/17/23 12:25 Pulse Ox 97 01/17/23 07:04 Laboratory: Laboratory Last Values WBC 5.50 thou/uL (4.3-10.9) 01/16/23 03:47 RBC 4.34 M/uL (3.86-4.86) 01/16/23 03:47 Hgb 13.1 g/dL (12.0-15.0) 01/16/23 03:47 Hct 40.1 % (36.0-45.0) 01/16/23 03:47 MCV 92.3 fL (80-100) 01/16/23 03:47 MCH 30.2 pg (27.0-35.0) 01/16/23 03:47 MCHC 32.7 g/dL (32.0-36.0) 01/16/23 03:47 RDW 13.1 % (12.1-15.2) 01/16/23 03:47 Plt Count 168 thou/uL (152-406) 01/16/23 03:47 MPV 8.0 fL (7.6-11.3) 01/16/23 03:47 Neutrophils % 50.7 % (41.7-73.7) 01/16/23 03:47 Lymphocytes % 35.1 % (15.3-44.8) 01/16/23 03:47 Monocytes % 10.4 % (3.3-12.3) 01/16/23 03:47 Eosinophils % 3.1 % (0-4.4) 01/16/23 03:47 Basophils % 0.7 % (0-1.3) 01/16/23 03:47 Absolute Neutrophils 2.8 K/uL (1.8-8.0) 01/16/23 03:47 Absolute Lymphocytes 1.9 K/uL (0.7-4.9) 01/16/23 03:47 Absolute Monocytes 0.6 K/uL (0.1-1.3) 01/16/23 03:47 Absolute Eosinophils 0.2 K/uL (0-0.5) 01/16/23 03:47 Absolute Basophils 0.0 K/uL (0-0.5) 01/16/23 03:47 Sodium 142 mEq/L (136-145) 01/16/23 03:47 Potassium 3.8 mEq/L (3.5-5.1) 01/16/23 03:47 Chloride 113 mEq/L (98-107) H 01/16/23 03:47 Carbon Dioxide 27 mEq/L (21-32) 01/16/23 03:47 Anion Gap 5.8 mEq/L (5.0-15.0) 01/16/23 03:47 BUN 19 mg/dL (7-18) H 01/16/23 03:47 Creatinine 0.67 mg/dL (0.55-1.02) 01/16/23 03:47 Est GFR (CKD-EPI) 87 ml/min (=/>90) L 01/16/23 03:47 Glucose 103 mg/dL (74-106) 01/16/23 03:47 Calcium 8.6 mg/dL (8.5-10.1) 01/16/23 03:47 Magnesium 2.2 mg/dL (1.6-2.4) 01/16/23 03:47 Albumin 3.4 g/dL (3.4-5.0) 01/16/23 03:47 Prealbumin 19.4 mg/dL (20-40) L 01/16/23 03:47 Urine Color Light-yellow (Yellow) 01/15/23 17:15 Urine Clarity Turbid (Clear) H 01/15/23 17:15 Urine pH 5.5 (5.0-7.0) 01/15/23 17:15 Ur Specific Hardesty 1.011 (1.005-1.030) 01/15/23 17:15 Glucose (UA)(Auto) Negative (Negative) 01/15/23 17:15 Urine Ketones Negative (Negative) 01/15/23 17:15 Urine Blood Negative (Negative) 01/15/23 17:15 Urine Nitrite Negative (Negative) 01/15/23 17:15 Urine Bilirubin Negative (Negative) 01/15/23 17:15 Urine Urobilinogen Normal (Normal) 01/15/23 17:15 Ur Leukocyte Esterase 500 Shoshana/uL (Negative) H 01/15/23 17:15 Urine RBC <5 /HPF (None Seen) 01/15/23 17:15 Urine WBC <5 /HPF (<5) 01/15/23 17:15 Ur Squamous Epith Cells <5 /HPF (None Seen) 01/15/23 17:15 U Non-Squamous Epi Cells <5 /HPF (None Seen) 01/15/23 17:15 Urine Bacteria <20 /HPF (<20) 01/15/23 17:15 Urine Yeast (Budding) Trace /HPF (None Seen) H 01/15/23 17:15 Urine Culture Reflexed Not needed 01/15/23 17:15 Urine Total Protein Negative (Negative) 01/15/23 17:15 Weight: 184 lb 8 oz Wound Present: No Closed Surgical Incision Present: No Negative Pressure Wound Therapy Present: No Physician Update: Labs reviewed and are stable. Making very good progress with all therapy. Plan on home health to continue therapy. SLUMS 14 and is now working on short term memory. 500' with CGA with RW, min assistance with transfers. Impulsive with ADLs. Working on fine motor activity. Summary: Patient's care plan and terminologist goals have been reviewed and revised as necessary. Please see the Rehabilitation Signature page for all necessary signatures.
[2023-01-17] MEDS: RIVAROXABAN 20 MG TABLET PO SCH (17:11)
[2023-01-17] MEDS: ATORVASTATIN 80 MG TAB PO SCH (20:03)
[2023-01-17] MEDS: DOCUSATE NA/SENNA CONC 1 TAB PO SCH ×2 (20:04→20:33)
[2023-01-17] MEDS: COENZYME Q10- 200 MG CAP PO SCH (20:05)
[2023-01-17] MEDS: MELATONIN 5 MG TABLET PO PRN (20:33)
[2023-01-18] MEDS: SOTALOL HCL 80 MG TAB PO SCH ×2 (05:26→16:44)
[2023-01-18] MEDS: FOLIC ACID 1 MG TABLET PO SCH (07:24)
[2023-01-18] MEDS: COLESEVELAM 625 MG PO SCH (07:24)
[2023-01-18] MEDS: DILTIAZEM HCL 180 MG SR CAP PO SCH (07:24)
[2023-01-18] MEDS: VALSARTAN 160 MG TAB PO SCH (07:25)
[2023-01-18] MEDS: ENSURE ENLIVE 237 ML CAN PO SCH ×2 (07:26→19:45)
[2023-01-18] MEDS: MAGNESIUM OXIDE 400 MG TAB PO SCH (07:26)
[2023-01-18] MEDS: CRANBERRY FRUIT EXTRACT 200 MG CAP PO SCH ×2 (07:26→19:45)
[2023-01-18] MEDS ORDERED: COLESEVELAM PO SCH (08:00)
[2023-01-18] MEDS: RIVAROXABAN 20 MG TABLET PO SCH (16:44)
[2023-01-18] MEDS: DOCUSATE NA/SENNA CONC 1 TAB PO SCH ×2 (19:45→19:51)
[2023-01-18] MEDS: ATORVASTATIN 80 MG TAB PO SCH (19:45)
[2023-01-18] MEDS: COENZYME Q10- 200 MG CAP PO SCH (19:45)
[2023-01-18] MEDS: MELATONIN 5 MG TABLET PO PRN (19:45)
[2023-01-19] MEDS: SOTALOL HCL 80 MG TAB PO SCH ×2 (05:19→16:47)
[2023-01-19] MEDS: FOLIC ACID 1 MG TABLET PO SCH (07:26)
[2023-01-19] MEDS: DILTIAZEM HCL 180 MG SR CAP PO SCH (07:26)
[2023-01-19] MEDS: COLESEVELAM 625 MG PO SCH (07:26)
[2023-01-19] MEDS: VALSARTAN 160 MG TAB PO SCH (07:27)
[2023-01-19] MEDS: CRANBERRY FRUIT EXTRACT 200 MG CAP PO SCH ×2 (07:28→20:10)
[2023-01-19] MEDS: ENSURE ENLIVE 237 ML CAN PO SCH ×2 (07:28→20:10)
[2023-01-19] MEDS: MAGNESIUM OXIDE 400 MG TAB PO SCH (07:28)
[2023-01-19] MEDS: RIVAROXABAN 20 MG TABLET PO SCH (16:47)
[2023-01-19] MEDS: DOCUSATE NA/SENNA CONC 1 TAB PO SCH (20:10)
[2023-01-19] MEDS: COENZYME Q10- 200 MG CAP PO SCH (20:10)
[2023-01-19] MEDS: ATORVASTATIN 80 MG TAB PO SCH (20:10)
[2023-01-19] MEDS: MELATONIN 5 MG TABLET PO PRN (20:20)
[2023-01-20] MEDS: SOTALOL HCL 80 MG TAB PO SCH ×2 (04:47→17:01)
[2023-01-20] MEDS: DILTIAZEM HCL 180 MG SR CAP PO SCH (06:54)
[2023-01-20] MEDS: COLESEVELAM 625 MG PO SCH (07:56)
[2023-01-20] MEDS: FOLIC ACID 1 MG TABLET PO SCH (07:57)
[2023-01-20] MEDS: CRANBERRY FRUIT EXTRACT 200 MG CAP PO SCH ×2 (07:57→19:33)
[2023-01-20] MEDS: MAGNESIUM OXIDE 400 MG TAB PO SCH (07:57)
[2023-01-20] MEDS: ENSURE ENLIVE 237 ML CAN PO SCH ×2 (07:57→19:34)
[2023-01-20] MEDS: VALSARTAN 160 MG TAB PO SCH (07:57)
[2023-01-20] MEDS: RIVAROXABAN 20 MG TABLET PO SCH (17:01)
[2023-01-20] MEDS: MELATONIN 5 MG TABLET PO PRN (19:33)
[2023-01-20] MEDS: COENZYME Q10- 200 MG CAP PO SCH (19:33)
[2023-01-20] MEDS: ATORVASTATIN 80 MG TAB PO SCH (19:33)
[2023-01-20] MEDS: DOCUSATE NA/SENNA CONC 1 TAB PO SCH (19:34)
--- NOTE | 2023-01-21 01:29 | PN ---
Date of Progress Note: 01/20/2023 Time Of Service: 1:35 p.m. Subjective: Ms. Sloan is doing well. She is in the room in between therapy sessions. Has minimal c omplaints. Says her neck is not bothering her much. No myalgias, arthralgias. No other complaints. Review of Systems: No fevers, chills, nausea, vomiting. No psychiatric issues. Again, no myalgias or arthralgias. Physical Examination: Vital Signs: Blood pressure 116/65, pulse 63, respiratory rate of 16, temperature 97.1, oxygen satur ation 95%. General: Ms. Sloan is resting comfortably. She has mild kyphosis in the neck, otherwise mild diffus e weakness in upper and lower extremities without focal weakness. At this point, she is significantl y improving from her deficits. Laboratory Studies: No new laboratory studies. X-ray/imaging: No new x-ray or imaging. Medications: Her medications have been reviewed and remain unchanged. Current Functional Status: Progress made with physical and occupational therapy along with her [facility] therapy. Today, she ambulated with a rolling walker covering 325 feet with contact guard assistanc e. She did take a rest break. She ascended and descended 20 steps with bilateral handrails with con tact guard assistance. Regarding occupational therapy, she ambulated from the room to shower with a rolling walker with supervision, contact guard assistance while in shower using grab bars. With spee therapy, she required minimum assistance for working memory tasks and problem-solving. She needed moderate to minimum assistance for sustained attention tasks. She was able to recall independently 3 of 3 unrelated items after 5 minutes. Progress made with physical and occupational along with speech therapy. Ms. Sloan is making excellen t progress towards her goals of becoming independent with upper and lower body dressing, transferring , toileting, ambulating 200 feet, 50 feet independently and performing cognitive functioning independ ently along with her eating and maintaining good nutrition independently. Assessment: Ms. Sloan is an 82-year-old patient in the rehabilitation unit with a 13 mm nonhemorrhag ic stroke in the right tracy which has produced some left-sided weakness, from which she is recovering very well. She has COPD, gastroesophageal reflux disease, hypertension, dyslipidemia, insomnia, ost eoarthritis. Plan: 1.Continue physical, occupational, and speech therapy as noted. 2.Continue with Xarelto 10 mg daily for atrial fibrillation. 3.Continue with Zofran for nausea as needed. 4.Tylenol and Ultram for pain. 5.Melatonin for insomnia. 6.Magnesium for muscle spasms. 7.Diltiazem for heart rate and blood pressure control. 8.Zyrtec for seasonal allergies. 9.Lipitor for dyslipidemia. Comorbidities That Continue To Impact Rehabilitation: Her comorbidities do not negatively impact her rehabilitation, atrial fibrillation, and other comorbidities are adequately addressed. USAMA/ADRIAN Voice ID: [id number] Report ID: [id number]
[2023-01-21] MEDS: SOTALOL HCL 80 MG TAB PO SCH ×2 (05:03→17:04)
[2023-01-21] MEDS: COLESEVELAM 625 MG PO SCH (08:42)
[2023-01-21] MEDS: CRANBERRY FRUIT EXTRACT 200 MG CAP PO SCH ×2 (08:43→19:16)
[2023-01-21] MEDS: MAGNESIUM OXIDE 400 MG TAB PO SCH (08:43)
[2023-01-21] MEDS: VALSARTAN 160 MG TAB PO SCH (08:43)
[2023-01-21] MEDS: FOLIC ACID 1 MG TABLET PO SCH (08:43)
[2023-01-21] MEDS: DILTIAZEM HCL 180 MG SR CAP PO SCH (08:45)
[2023-01-21] MEDS: ENSURE ENLIVE 237 ML CAN PO SCH ×2 (10:18→19:16)
[2023-01-21] MEDS: RIVAROXABAN 20 MG TABLET PO SCH (16:48)
[2023-01-21] MEDS: ATORVASTATIN 80 MG TAB PO SCH (19:14)
[2023-01-21] MEDS: COENZYME Q10- 200 MG CAP PO SCH (19:14)
[2023-01-21] MEDS: MELATONIN 5 MG TABLET PO PRN (19:15)
[2023-01-21] MEDS: DOCUSATE NA/SENNA CONC 1 TAB PO SCH ×2 (19:16→19:19)
--- NOTE | 2023-01-21 23:12 | PN ---
Date of Progress Note: 01/21/2023 Time Of Service: 1:30 p.m. Subjective: Ms. Sloan is resting in between therapy sessions. She is doing well. She has no compla ints. She is happy so far with her therapy. Review of Systems: Denies any fevers, chills, nausea, vomiting, myalgias, arthralgias, rash, psychiatric complaints, or headache. Physical Examination: Vital Signs: Blood pressure 145/70, pulse is 81, respiratory rate 16, temperature 97, oxygen saturat ion 96. General: Ms. Sloan is resting well. Neurologic: She is improving from her stroke very well. She has some incoordination, but no signifi cant focal weakness. Laboratory Studies: No new laboratory studies. X-ray/imaging: No new x-rays or imaging. Medications: Medications have been reviewed and remained unchanged. Current Functional Status: Today, she ambulated 250 feet with a rolling walker with supervision and a quad cane also 250 feet with standby assistance. She was able to go up and down 20 steps independe ntly. She also ambulated 250 feet with a rolling walker while picking up objects from the floor with a wing scorer. With her speech therapy, she worked on short-term memory, working memory, sustained atte ntion and problem-solving. She required minimum assistance for tasks associated with working memory, problem-solving, and sustained attention. She was able to recall independently a first set of 3/3 u nrelated items after 5 minutes, but remained at minimum assistance, recalled 2 sets of 3/3 unrelated items after 5 minutes. Progress Towards Rehabilitation Goals: Ms. Sloan is making excellent progress towards her goals of b ecoming independent with upper and lower body dressing, transferring, toileting, showering, and ambul ating 250 feet independently. She mobilized in a wheelchair 200 feet independently and going up and down 25 steps independently. She is also working on improving cognitive functioning with supervision and modified independence. Assessment: Ms. Sloan is an 82-year-old patient in the rehabilitation unit with a 13 mm right pontin e stroke with some left-sided weakness was resolving very well and she is recovering overall very wel l. She has hypertension, dyslipidemia, insomnia, arthritis, gastroesophageal reflux, chronic obstruc tive pulmonary disease. Plan: 1.Continue with physical, occupational, and speech therapy for 3.5 hours, 5/7 days. 2.Continue with Xarelto for atrial fibrillation. 3.Continue with Zofran for nausea. 4.Tylenol and Ultram for pain. 5.Melatonin for insomnia. 6.Diltiazem for heart rate and blood pressure control. 7.Zyrtec for seasonal allergies. 8.Lipitor for dyslipidemia. Comorbidities That Continue To Impact Rehabilitation Process: Her comorbidities are well managed and do not negatively impact her rehabilitation. USAMA/ADRIAN Voice ID: [id number] Report ID: [id number]
[2023-01-22] MEDS: SOTALOL HCL 80 MG TAB PO SCH ×2 (04:51→17:06)
[2023-01-22] MEDS: VALSARTAN 160 MG TAB PO SCH (07:27)
[2023-01-22] MEDS: FOLIC ACID 1 MG TABLET PO SCH (08:08)
[2023-01-22] MEDS: CRANBERRY FRUIT EXTRACT 200 MG CAP PO SCH ×2 (08:08→19:23)
[2023-01-22] MEDS: COLESEVELAM 625 MG PO SCH (08:08)
[2023-01-22] MEDS: MAGNESIUM OXIDE 400 MG TAB PO SCH (08:10)
[2023-01-22] MEDS: ENSURE ENLIVE 237 ML CAN PO SCH ×2 (08:17→19:24)
[2023-01-22] MEDS: DILTIAZEM HCL 180 MG SR CAP PO SCH (10:01)
[2023-01-22] MEDS: RIVAROXABAN 20 MG TABLET PO SCH (17:06)
[2023-01-22] MEDS: DOCUSATE NA/SENNA CONC 1 TAB PO SCH ×2 (19:23→19:30)
[2023-01-22] MEDS: COENZYME Q10- 200 MG CAP PO SCH (19:23)
[2023-01-22] MEDS: ATORVASTATIN 80 MG TAB PO SCH (19:23)
[2023-01-23] MEDS: SOTALOL HCL 80 MG TAB PO SCH (05:08)
[2023-01-23 07:03] VITALS: TEMP 96.6
[2023-01-23] MEDS: VALSARTAN 160 MG TAB PO SCH (07:15)
[2023-01-23] MEDS: ENSURE ENLIVE 237 ML CAN PO SCH (08:00)
[2023-01-23] MEDS: CRANBERRY FRUIT EXTRACT 200 MG CAP PO SCH (08:35)
[2023-01-23] MEDS: FOLIC ACID 1 MG TABLET PO SCH (08:35)
[2023-01-23] MEDS: MAGNESIUM OXIDE 400 MG TAB PO SCH (08:35)
[2023-01-23] MEDS: COLESEVELAM 625 MG PO SCH (08:35)
[2023-01-23 09:08] VITALS: BP 160/72
[2023-01-23] MEDS: DILTIAZEM HCL 180 MG SR CAP PO SCH (09:08)
== END 2023-01-23 10:30 | disposition home health service (06) | DRG 65 ==
LOC: 5TH 12:08
PROVIDERS: ADMIT Psychiatry & Neurology Neurology with Special Qualifications in Child Neurology; ATTEND Psychiatry & Neurology Neurology with Special Qualifications in Child Neurology
DX: I63.9 Cerebral infarction, unspecified (principal); G81.94 Hemiplegia, unspecified affecting left nondominant side; I10 Essential (primary) hypertension; J44.9 Chronic obstructive pulmonary disease, unspecified; E78.5 Hyperlipidemia, unspecified; K21.9 Gastro-esophageal reflux disease without esophagitis; I48.91 Unspecified atrial fibrillation; J30.2 Other seasonal allergic rhinitis; M62.838 Other muscle spasm; G47.00 Insomnia, unspecified; M19.90 Unspecified osteoarthritis, unspecified site; R47.81 Slurred speech; R29.810 Facial weakness; Z88.0 Allergy status to penicillin; Z79.01 Long term (current) use of anticoagulants; Z86.73 Personal history of transient ischemic attack (TIA), and cerebral infarction without residual deficits; Z90.49 Acquired absence of other specified parts of digestive tract; Z96.652 Presence of left artificial knee joint
CPT/HCPCS: 36415; 80048; 81001; 82040; 83735; 84134; 85025; 87086; 87088; 92523; 97110; 97112; 97116; 97129; 97161; 97165; 97530